=== PATIENT | male | born 1940 | race Caucasian/White ===

== ENCOUNTER 2016-08-24 11:02 | Day surgery (SDC) | payer MEDICARE, BC ==
[2016-08-23 12:04] VITALS: BMI 27.2
[~2016-08-24 11:02] MED LIST: LACTATED RINGERS 1,000 ML IV SCH
[2016-08-24] MEDS: PHENYLEPHRINE 10% OPHTH DROPS 5 ML BTL OP ONE ×3 (11:59→12:18)
[2016-08-24] MEDS: CYCLOPENTOLATE 1% OPHTH SOLN 2 ML BTL OP ONE ×3 (12:02→12:21)
[2016-08-24] MEDS: FLURBIPROFEN 0.03% OPHTH DROPS 2.5 ML BTL OP ONE ×3 (12:05→12:24)
[2016-08-24] MEDS ORDERED: LIDOCAINE 1% 20 ML VIAL (10MG/ML) FOR IV START INTRADERMA ONE (12:11)
[2016-08-24] MEDS ORDERED: ONDANSETRON 4 MG/2 ML VIAL IVP ONE (12:14)
[2016-08-24 12:16] VITALS: TEMP 97.9
[2016-08-24] MEDS ORDERED: PROPOFOL 10 MG/ML 20 ML VIAL IV ONE (12:42)
[2016-08-24] MEDS ORDERED: EPINEPHrine (PF) 0.5 ML in BALANCED SALT IRRIG SOLN COMB2 500 ML IRRIGATION ONE (12:50)
[2016-08-24] MEDS ORDERED: HYALURONATE SODIUM INTRAOCULAR 1 EACH SYRINGE (10MG/ML) INTRAOCULA ONE (12:56)
[2016-08-24] MEDS ORDERED: BALANCED SALT IRRIG SOLN COMB2 15 ML IRRIG.SOLN IRRIGATION ONE (12:56)
--- NOTE | 2016-08-24 13:09 | P.OP ---
Date of Procedure: 08/24/16 Preoperative Diagnosis: Postoperative Diagnosis: Procedure(s) Performed: PREOPERATIVE DIAGNOSIS: Cataract, left eye. POSTOPERATIVE DIAGNOSIS: Cataract, left eye. OPERATION: Phacoemulsification cataract, left eye. DESCRIPTION OF PROCEDURE: The patient was taken to the preoperative holding area. Intravenous Propofol was given so as to bring about adequate sedation. The following mixture was given for local anesthesia: 5 mL of 2% lidocaine, 5 mL of 0.75% Marcaine, and 1 mL of Wydase. Approximately 4 mL was injected in the retrobulbar space of the surgical eye. Additional 1 mL was then directed to the temporal area of the surgical eye. This was performed to allow adequate neurological block of the facial muscles. The patient was revived and then taken into the operative room. The patient was prepped and draped in the usual sterile manner for the operative eye. A lid speculum was put into position. The conjunctiva was resected back from the limbus in the 12 o'clock position. Bleeding was controlled with electrocautery. A #69 blade was then used and a half-thickness scleral incision approximately 1-mm posterior to the limbus was made on bare sclera. This was shelved in the clear cornea using a crescent knife. Next a 15-degree blade was used to make a stab incision at the 3 o' clock position at the corneolimbal interface. Keratome blade was then used and the superior wound was extended into the anterior chamber. Viscoelastic was injected into the anterior chamber and to maintain its form. Next, a cystotome was used and a continuous anterior capsulotomy was made without difficulty. Hydrodissection using a blunt cannula and BSS was performed. Phaco probe was then employed and a groove extending from 12 to 6 o'clock in the lens was created. A Ja wand was used through the stab incision so as to perform a divide and conquer technique. Next an irrigation aspiration probe was utilized and any residual cortex was removed from the eye. Again, viscoelastic was injected into the anterior chamber. An Matt posterior chamber lens implant was placed in the cartridge and injected into the anterior chamber without difficulty. The [employer] hook was utilized to spin the lens into position and this was again performed without any difficulty. The irrigation and aspiration probe was again employed and any residual viscoelastic was removed from the eye. Then BSS was injected into the limbal stab incision and the anterior chamber re-inflated. The conjunctiva was reapproximated using electrocautery. One drop of 0.25% Timoptic was placed over the corneal along with TobraDex ophthalmic ointment. Two sterile patches and a Wu eye shield were taped into position. The patient was transported to the recovery room in stable condition. Implants: Pathology: none sent Condition: stable Disposition: same day Indications for Procedure: Operative Findings: Description of Procedure:
[2016-08-24 13:29] VITALS: BP 124/60; PULSE 65; RESP 18
[2016-08-24] MEDS ORDERED: GENTAMICIN/PREDNISOL AC OPHTH OINT 3.5GM OPHTHALMIC ONE (23:00)
[2016-08-24] MEDS ORDERED: BUPIVACAINE (PF) 0.75% 5 ML, LIDOCAINE 4% (PF) 5 ML, HYALURONIDASE, HUMAN RECOMB 150 UNIT MISCELLANE ONE ×3 (23:00)
[2016-08-24] MEDS ORDERED: TIMOLOL 0.5% OPHTH SOLN (PF) 0.2 ML DROPERETTE OP ONE (23:00)
== END 2016-08-24 13:52 | disposition home or self-care (01) ==
LOC: OR 11:02
PROVIDERS: ATTEND Ophthalmology
DX: H25.012 Cortical age-related cataract, left eye (principal); I11.9 Hypertensive heart disease without heart failure; I25.10 Atherosclerotic heart disease of native coronary artery without angina pectoris; E78.5 Hyperlipidemia, unspecified; M10.9 Gout, unspecified; Z95.1 Presence of aortocoronary bypass graft; Z85.46 Personal history of malignant neoplasm of prostate; Z79.82 Long term (current) use of aspirin; Z79.899 Other long term (current) drug therapy; Z88.1 Allergy status to other antibiotic agents; Z88.8 Allergy status to other drugs, medicaments and biological substances
CPT/HCPCS: 66984; V2632; J2001; J3470; J2405; J0171; J2704

== ENCOUNTER → 2016-10-25 | Outpatient (CLI) | payer MEDICARE, BC ==
--- NOTE | 2016-10-25 15:24 | XR ---
EXAMINATION TYPE: XR chest 2V DATE OF EXAM: 10/25/2016 COMPARISON: NONE HISTORY: Shortness of breath, history of prostate cancer TECHNIQUE: Frontal and lateral views of the chest are obtained. FINDINGS: Sternal wires and mediastinal clips are seen. There is no focal air space opacity, pleural effusion, or pneumothorax seen. The cardiac silhouette size is within normal limits. The osseous s tructures are intact. IMPRESSION: No acute cardiopulmonary process.
[2016-10-25 15:31] LABS: EKG EKG PERFORMED
[2016-10-25 16:07] LABS: Anion Gap 10 mmol/L; Blood Urea Nitrogen 27 mg/dL (9-20); Calcium 9.5 mg/dL (8.4-10.2); Carbon Dioxide 23 mmol/L (22-30); Chloride 107 mmol/L (98-107); Glucose 185 mg/dL (74-99); Non-African American GFR(MDRD) 59 (>60 ml/min/1.73 sqM); Potassium 4.2 mmol/L (3.5-5.1); Sodium 140 mmol/L (137-145)
[2016-10-25 16:35] LABS: Basophils % (A) 0 %; CH 30.4; Eosinophils # (A) 0.2 k/uL (0-0.7); Eosinophils % (A) 3 %; HCT 36.4 % (39.0-53.0); Luc % (Auto) 2; Lymphocytes # (A) 0.9 k/uL (1.0-4.8); Lymphocytes % (A) 18 %; MCH 31.2 pg (25.0-35.0); MCHC 35.8 g/dL (31.0-37.0); MCV 87.2 fL (80.0-100.0); Monocytes # (A) 0.3 k/uL (0-1.0); Monocytes % (A) 6 %; Neutrophils # (A) 3.6 k/uL (1.3-7.7); Neutrophils % (A) 71 %; RBC 4.18 m/uL (4.30-5.90); RDW 13.2 % (11.5-15.5); WBC 5.1 k/uL (3.8-10.6); WBC (Perox) 4.88
== END | disposition home or self-care (01) ==
LOC: RADXRMAIN 14:47
PROVIDERS: ATTEND Radiology Radiation Oncology
DX: R06.02 Shortness of breath (principal); Z88.1 Allergy status to other antibiotic agents; Z88.8 Allergy status to other drugs, medicaments and biological substances
CPT/HCPCS: 71020; 80048; 85025; 85379; 93005

== ENCOUNTER → 2016-12-29 | Outpatient (CLI) | payer MEDICARE, BC | END | disposition home or self-care (01) | LOC: LABWHC1 09:22 | PROVIDERS: ATTEND Radiology Radiation Oncology | DX: C61 Malignant neoplasm of prostate (principal) | CPT/HCPCS: 36415; 84153 ==

== ENCOUNTER 2017-01-11 11:40 | Day surgery (SDC) | payer MEDICARE, BC ==
[2017-01-05 11:30] VITALS: BMI 26.1
[~2017-01-11 11:40] MED LIST changes: +DEXAMETHASONE SOD PHOSPHATE 10 MG/ML 1 ML VIAL IV ONE; +HYDROmorphone 0.5 MG/0.5 ML SYRINGE IVP PRN; +ONDANSETRON 4 MG/2 ML VIAL IVP ONE
[2017-01-11] MEDS: PHENYLEPHRINE 10% OPHTH DROPS 5 ML BTL OP ONE ×3 (12:06→12:23)
[2017-01-11] MEDS: CYCLOPENTOLATE 1% OPHTH SOLN 2 ML BTL OP ONE ×3 (12:09→12:26)
[2017-01-11] MEDS: KETOROLAC 0.5% OPHTH DROPS 5 ML BTL OP ONE ×3 (12:12→12:29)
[2017-01-11 12:18] VITALS: TEMP 97.5
[2017-01-11] MEDS ORDERED: LIDOCAINE 1% 20 ML VIAL (10MG/ML) FOR IV START INTRADERMA ONE (12:30)
[2017-01-11] MEDS ORDERED: PROPOFOL 10 MG/ML 20 ML VIAL IV ONE (13:23)
[2017-01-11] MEDS ORDERED: LIDOCAINE 1% INJ 10MG/ML (20 ML MDV) ONE (13:23)
[2017-01-11] MEDS ORDERED: BALANCED SALT IRRIG SOLN COMB2 15 ML IRRIG.SOLN INTRAOCULA ONE (13:36)
[2017-01-11] MEDS ORDERED: HYALURONATE SODIUM INTRAOCULAR 1 EACH SYRINGE (10MG/ML) INTRAOCULA ONE (13:37)
[2017-01-11] MEDS ORDERED: EPINEPHrine (PF) 0.5 ML in BALANCED SALT IRRIG SOLN COMB2 500 ML IRRIGATION ONE (13:38)
--- NOTE | 2017-01-11 13:47 | P.OP ---
Date of Procedure: 01/11/17 Procedure(s) Performed: PREOPERATIVE DIAGNOSIS: Cataract, right eye. POSTOPERATIVE DIAGNOSIS: Cataract, right eye. OPERATION: Phacoemulsification cataract, right eye. DESCRIPTION OF PROCEDURE: The patient was taken to the preoperative holding area. Intravenous Propofol was given so as to bring about adequate sedation. The following mixture was given for local anesthesia: 5 mL of 2% lidocaine, 5 mL of 0.75% Marcaine, and 1 mL of Wydase. Approximately 4 mL was injected in the retrobulbar space of the surgical eye. Additional 1 mL was then directed to the temporal area of the surgical eye. This was performed to allow adequate neurological block of the facial muscles. The patient was revived and then taken into the operative room. The patient was prepped and draped in the usual sterile manner for the operative eye. A lid speculum was put into position. The conjunctiva was resected back from the limbus in the 12 o'clock position. Bleeding was controlled with electrocautery. A #69 blade was then used and a half-thickness scleral incision approximately 1-mm posterior to the limbus was made on bare sclera. This was shelved in the clear cornea using a crescent knife. Next a 15-degree blade was used to make a stab incision at the 3 o' clock position at the corneolimbal interface. Keratome blade was then used and the superior wound was extended into the anterior chamber. Viscoelastic was injected into the anterior chamber and to maintain its form. Next, a cystotome was used and a continuous anterior capsulotomy was made without difficulty. Hydrodissection using a blunt cannula and BSS was performed. Phaco probe was then employed and a groove extending from 12 to 6 o'clock in the lens was created. A Ja wand was used through the stab incision so as to perform a divide and conquer technique. Next an irrigation aspiration probe was utilized and any residual cortex was removed from the eye. Again, viscoelastic was injected into the anterior chamber. An Matt posterior chamber lens implant was placed in the cartridge and injected into the anterior chamber without difficulty. The [employer] hook was utilized to spin the lens into position and this was again performed without any difficulty. The irrigation and aspiration probe was again employed and any residual viscoelastic was removed from the eye. Then BSS was injected into the limbal stab incision and the anterior chamber re-inflated. The conjunctiva was reapproximated using electrocautery. One drop of 0.25% Timoptic was placed over the corneal along with TobraDex ophthalmic ointment. Two sterile patches and a Wu eye shield were taped into position. The patient was transported to the recovery room in stable condition. Pathology: none sent Condition: stable Disposition: same day
[2017-01-11 13:56] VITALS: RESP 18
[2017-01-11 14:07] VITALS: BP 122/78; PULSE 64
[2017-01-11] MEDS ORDERED: BUPIVACAINE (PF) 0.75% 5 ML, LIDOCAINE 4% (PF) 5 ML, HYALURONIDASE, HUMAN RECOMB 150 UNIT MISCELLANE ONE ×3 (23:00)
[2017-01-11] MEDS ORDERED: GENTAMICIN/PREDNISOL AC OPHTH OINT 3.5GM OPHTHALMIC ONE (23:00)
[2017-01-11] MEDS ORDERED: TIMOLOL 0.5% OPHTH SOLN (PF) 0.2 ML DROPERETTE OP ONE (23:00)
== END 2017-01-11 14:23 | disposition home or self-care (01) ==
LOC: OR 11:40
PROVIDERS: ATTEND Ophthalmology
DX: H26.9 Unspecified cataract (principal); E78.5 Hyperlipidemia, unspecified; I25.10 Atherosclerotic heart disease of native coronary artery without angina pectoris; N40.0 Benign prostatic hyperplasia without lower urinary tract symptoms; Z85.46 Personal history of malignant neoplasm of prostate; Z79.899 Other long term (current) drug therapy; Z95.1 Presence of aortocoronary bypass graft; I25.2 Old myocardial infarction; Z79.82 Long term (current) use of aspirin; Z98.42 Cataract extraction status, left eye; Z96.1 Presence of intraocular lens
CPT/HCPCS: 66984; V2632; J2001 ×2; J3470; J0171; J2704

== ENCOUNTER → 2017-06-17 | Outpatient (CLI) | payer MEDICARE, BC | END | disposition home or self-care (01) | LOC: LABWHC1 10:52 | PROVIDERS: ATTEND Radiology Radiation Oncology | DX: C61 Malignant neoplasm of prostate (principal) | CPT/HCPCS: 36415; 84153 ==

== ENCOUNTER → 2017-10-10 | Outpatient (CLI) | payer MEDICARE, BC | END | disposition home or self-care (01) | LOC: LABWHC1 13:25 | PROVIDERS: ATTEND Radiology Radiation Oncology | DX: C61 Malignant neoplasm of prostate (principal) | CPT/HCPCS: 36415; 84153 ==

== ENCOUNTER → 2017-11-02 | Outpatient (CLI) | payer MEDICARE, BC ==
[2017-11-02 10:14] LABS: Cholesterol 132 mg/dL (<200); HDL Cholesterol 46 mg/dL (40-60); LDL Cholesterol,Calculated 68 mg/dL (0-99); Triglycerides 92 mg/dL (<150)
== END | disposition home or self-care (01) ==
LOC: LABWHC1 09:22
PROVIDERS: ATTEND Internal Medicine Cardiovascular Disease
DX: E78.2 Mixed hyperlipidemia (principal)
CPT/HCPCS: 36415; 80061

== ENCOUNTER → 2018-02-13 | Outpatient (CLI) | payer MEDICARE, BC | END | disposition home or self-care (01) | LOC: LABWHC1 13:48 | PROVIDERS: ATTEND Radiology Radiation Oncology | DX: C61 Malignant neoplasm of prostate (principal) | CPT/HCPCS: 36415; 84153 ==

== ENCOUNTER → 2018-06-16 | Outpatient (CLI) | payer MEDICARE, BC | LOC: LABWHC1 11:12 | PROVIDERS: ATTEND Radiology Radiation Oncology | DX: C61 Malignant neoplasm of prostate (principal) | CPT/HCPCS: 36415; 84153 ==

== ENCOUNTER → 2018-07-19 | Outpatient (CLI) | payer MEDICARE, BC ==
[2018-07-19 11:38] LABS: HGB 9.3 gm/dL (13.0-17.5); Hypochromasia Marked; MCH 21.7 pg (25.0-35.0); MCHC 29.2 g/dL (31.0-37.0); MCV 74.2 fL (80.0-100.0); Mean Platelet Volume 7.8; Microcytosis Slight; Platelet Count 139 k/uL (150-450); RBC 4.31 m/uL (4.30-5.90); RDW 15.4 % (11.5-15.5); WBC 4.7 k/uL (3.8-10.6)
[2018-07-19 17:37] LABS: Iron Saturation 2.82 (15.00-50.00)
== END | disposition home or self-care (01) ==
LOC: LABWHC1 10:24
PROVIDERS: ATTEND Internal Medicine Hematology & Oncology
DX: D50.9 Iron deficiency anemia, unspecified (principal)
CPT/HCPCS: 36415; 82728; 83540; 83550; 85027

== ENCOUNTER → 2018-08-18 | Outpatient (CLI) | payer MEDICARE, BC ==
--- NOTE | 2018-08-18 11:18 | CT ---
EXAMINATION TYPE: CT ChestAbdPelvis w con DATE OF EXAM: 08/18/2018 COMPARISON: Outside CT abdomen and pelvis July 15, 2016 HISTORY: Duodenal Mass, recent abnormal EGD. CT DLP: 1085 mGycm. Automated Exposure Control for Dose Reduction was Utilized. CONTRAST: CT scan of the thorax, abdomen and pelvis is performed with oral and with IV Contrast, patient inject ed with 100 mL of Isovue 300. FINDINGS: LUNGS: Some patchy atelectasis or scarring anterior right lung base is present. No suspicious nodules or masses are seen. Mild linear scarring right lower lung laterally axial image 37 is noted. Patchy atelectasis lateral left lower lobe axial image 40 is noted. No pleural effusion or pneumothorax. MEDIASTINUM: There are no greater than 1 cm hilar or mediastinal lymph nodes. No cardiomegaly or p ericardial effusion is seen. Post CABG changes with mediastinal clips and sternal wires. OTHER: No additional significant abnormality is seen. LIVER/GB: A few small dependent gallstones and gallbladder are seen. Common bile duct felt within nor mal limits coronal image 39. PANCREAS: No significant abnormality is seen. SPLEEN: No significant abnormality is seen. ADRENALS: No significant abnormality is seen. KIDNEYS: No significant abnormality is seen. BOWEL: Oral contrast reaches level of mid transverse colon. There is mild prominence of fecal materia l in the left and transverse colon. There is no suspicious small or large bowel dilatation. Stomach i s poorly distended and thus suboptimally evaluated. There is poor distention of duodenal sweep withou t obvious suspicious mass.. GENITAL ORGANS: Heterogeneous enlarged prostate gland consistent with BPH bulging on bladder base. Oc casional pelvic phleboliths. LYMPH NODES: No greater than 1cm abdominal or pelvic lymph nodes are appreciated. OSSEOUS STRUCTURES: Moderate disc space narrowing with vacuum disc phenomenon and facet arthropathy l ower lumbar spine is seen. There is nonspecific sclerotic focus left T11 level with additional sclero tic focus posterior left third rib coronal image 61. There are multiple round lucent lesions involvin g L3 and L4 vertebra with largest left upper aspect coronal image 56 may have trabeculation. Nonspeci fic finding. I favor benign etiology as the osseous lesions are not significantly changed from 2017 C T. OTHER: Moderate mixed plaque of distal abdominal aorta extends into branch vessels. IMPRESSION: Poor visualization of known duodenal mass on this study. No suspicious new mass or adeno graeme to suggest metastatic malignancy.
== END | disposition home or self-care (01) ==
LOC: RADCTMAIN 08:37
PROVIDERS: ATTEND Internal Medicine Gastroenterology
DX: K31.9 Disease of stomach and duodenum, unspecified (principal)
CPT/HCPCS: 82565; 84520; 71260; 74177; 36415; Q9967

== ENCOUNTER → 2018-12-25 | Outpatient (CLI) | payer MEDICARE, BC | END | disposition home or self-care (01) | LOC: LABWHC1 13:23 | PROVIDERS: ATTEND Radiology Radiation Oncology | DX: C61 Malignant neoplasm of prostate (principal); Z79.818 Long term (current) use of other agents affecting estrogen receptors and estrogen levels; Z92.3 Personal history of irradiation | CPT/HCPCS: 36415; 84153 ==

== ENCOUNTER → 2019-02-20 | Outpatient (CLI) | payer MEDICARE, BC ==
[2019-02-20 20:46] LABS: Folate, Serum 10.6 ng/mL; Rheumatoid Factor, Qnt <4 IU/mL (0-15)
[2019-02-20 21:40] LABS: Hemoglobin A1C 7.5 % (4.0-6.0)
[2019-02-21 10:09] LABS: Free Kappa Lt Chain Qnt, Serum 3.38 mg/dL (0.33-1.94)
== END | disposition home or self-care (01) ==
LOC: LABWHC1 13:41
PROVIDERS: ATTEND Psychiatry & Neurology Neurology
DX: C61 Malignant neoplasm of prostate (principal); G62.9 Polyneuropathy, unspecified; M50.00 Cervical disc disorder with myelopathy, unspecified cervical region
CPT/HCPCS: 36415; 82607; 82746; 83036; 83883; 84207; 86038; 86334; 86431

== ENCOUNTER → 2019-03-09 | Outpatient (CLI) | payer MEDICARE, BC ==
[2019-03-09 19:01] LABS: Ferritin 187.8 ng/mL (22.0-322.0)
[2019-03-09 19:48] LABS: % Iron Saturation 22.13 (15.00-50.00); African American GFR (CKD) 83.8 (60.0-200.0); Anion Gap 7.4 mmol/L (4.00-12.00); Calcium 8.9 mg/dL (8.7-10.3); Carbon Dioxide 25.6 mmol/L (21.6-31.8); Non-African American GFR(CKD) 72.3 (60.0-200.0); Potassium 4.3 mmol/L (3.5-5.5); Total Bilirubin 0.3 mg/dL (0.2-1.2)
== END ==
LOC: LABWHC1 12:34
PROVIDERS: ATTEND Internal Medicine Hematology & Oncology
DX: C61 Malignant neoplasm of prostate (principal); E11.9 Type 2 diabetes mellitus without complications; D64.9 Anemia, unspecified
CPT/HCPCS: 36415; 80053; 82728; 83540; 83550; 84153

== ENCOUNTER → 2019-03-20 | Outpatient (CLI) | payer MEDICARE, BC ==
[2019-03-20 12:03] LABS: Anisocytosis Moderate; HCT 42.1 % (39.0-53.0); HGB 13.5 gm/dL (13.0-17.5); Hypochromasia Slight; MCH 26.3 pg (25.0-35.0); MCV 82.2 fL (80.0-100.0); Mean Platelet Volume 8.9; Microcytosis Slight; Platelet Count 114 k/uL (150-450); RBC 5.13 m/uL (4.30-5.90); WBC 4.7 k/uL (3.8-10.6)
[2019-03-20 16:13] LABS: Ferritin 236.6 ng/mL (22.0-322.0)
[2019-03-20 16:44] LABS: Potassium 4.4 mmol/L (3.5-5.5)
== END | disposition home or self-care (01) ==
LOC: LABWHC1 11:15
PROVIDERS: ATTEND Internal Medicine Hematology & Oncology
DX: E11.9 Type 2 diabetes mellitus without complications (principal); D64.9 Anemia, unspecified
CPT/HCPCS: 36415; 82728; 82947; 83540; 84132; 85027

== ENCOUNTER → 2019-04-26 | Outpatient (CLI) | payer MEDICARE, BC ==
[2019-04-26 14:45] LABS: Anisocytosis Slight; HCT 43.5 % (39.0-53.0); MCH 27.1 pg (25.0-35.0); MCHC 32.2 g/dL (31.0-37.0); MCV 84.3 fL (80.0-100.0); Mean Platelet Volume 8.6; Microcytosis Slight; Platelet Count 108 k/uL (150-450); RBC 5.15 m/uL (4.30-5.90); RDW 18.7 % (11.5-15.5); WBC 5.3 k/uL (3.8-10.6)
[2019-04-26 16:06] LABS: Erythrocyte Sedimentation Rate 16 mm/hr (0-15)
[2019-04-26 20:06] LABS: Hemoglobin A1C 8.7 % (4.0-6.0)
[2019-04-26 20:14] LABS: African American GFR (CKD) 95.1 (60.0-200.0); Non-African American GFR(CKD) 82.1 (60.0-200.0); Total Bilirubin 0.5 mg/dL (0.2-1.2)
== END | disposition home or self-care (01) ==
LOC: LABWHC1 13:58
PROVIDERS: ATTEND Internal Medicine Hematology & Oncology
DX: C61 Malignant neoplasm of prostate (principal); I10 Essential (primary) hypertension; E11.9 Type 2 diabetes mellitus without complications; D50.9 Iron deficiency anemia, unspecified; I20.9 Angina pectoris, unspecified
CPT/HCPCS: 36415; 82247; 82565; 83036; 83615; 84075; 84153; 84450; 84460; 84520; 85027; 85652

== ENCOUNTER → 2019-04-28 | Outpatient (CLI) | payer MEDICARE, BC ==
[2019-04-28 13:52] LABS: Chol/HDL Ratio 2.44; LDL Cholesterol,Calculated 35.2 mg/dL (0.0-131.0); VLDL Calculation 16.8 mg/dL (5.00-40.00)
== END | disposition home or self-care (01) ==
LOC: LABWHC1 09:21
PROVIDERS: ATTEND Internal Medicine Hematology & Oncology
DX: I10 Essential (primary) hypertension (principal); C61 Malignant neoplasm of prostate; E11.9 Type 2 diabetes mellitus without complications; D50.9 Iron deficiency anemia, unspecified; I20.9 Angina pectoris, unspecified; E78.5 Hyperlipidemia, unspecified
CPT/HCPCS: 36415; 80061; 82947

== ENCOUNTER 2019-07-04 14:52 | Inpatient (IN) | payer MEDICARE, BC ==
[2019-07-04] MEDS ORDERED: ONDANSETRON 4 MG/2 ML VIAL IVP STA ×2 (15:18→18:01)
[2019-07-04] MEDS ORDERED: SODIUM CHLORIDE 0.9% 1,000 ML IV STA ×3 (15:18→17:41)
[2019-07-04] MEDS ORDERED: HYDROmorphone 1 MG/ML 1 ML SYRINGE IVP STA ×2 (15:18→19:08)
[2019-07-04] MEDS ORDERED: IOPAMIDOL CONTRAST (ORAL USE) VIAL PO PRN (15:18)
[2019-07-04] MEDS ORDERED: PANTOPRAZOLE 40 MG/10 ML VIAL IVP STA (15:18)
--- NOTE | 2019-07-04 15:21 | ED ---
General Adult HPI - General Source: patient, RN notes reviewed Mode of arrival: ambulatory Limitations: no limitations <Reed Dangelo - Last Filed: 07/04/19 15:37> <Venu Ray - Last Filed: 07/04/19 19:18> - General Chief complaint: Abdominal Pain Stated complaint: NVD Time Seen by Provider: 07/04/19 15:13 - History of Present Illness Initial comments: Patient is a pleasant 78-year-old male presenting to the emergency Department with abdominal discomfort as well as nausea and vomiting. Onset of symptoms was today. Patient has vomited twice and still has nausea. Patient vomits during evaluation. Patient did have 2 bowel movements that were somewhat normal. No fevers. No cough or dyspnea. 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 Procedure was done at [facility] [place]. (Reed Dangelo) - Related Data Home Medications Medication Instructions Recorded Confirmed Allopurinol [Zyloprim] 100 mg PO DAILY 08/23/16 07/04/19 Aspirin 81 mg PO DAILY 08/23/16 07/04/19 Atorvastatin [Lipitor] 80 mg PO DAILY 08/23/16 07/04/19 Finasteride [Proscar] 5 mg PO DAILY 08/23/16 07/04/19 Losartan [Cozaar] 25 mg PO BID 08/23/16 07/04/19 Tamsulosin HCl [Flomax] 0.4 mg PO BID 08/23/16 07/04/19 Acarbose [Precose] 25 mg PO TID 07/04/19 07/04/19 Calcium Carbonate [Calcium] 600 mg PO BID 07/04/19 07/04/19 Cholecalciferol [Vitamin D3] 800 unit PO BID 07/04/19 07/04/19 Lipase/Protease/Amylase [Luis Duke 24,000 - 48,000 unit PO ACHS 07/04/19 07/04/19 24,000 Units Capsule] Pyridoxine [Vitamin B-6] 50 mg PO DAILY 07/04/19 07/04/19 amLODIPine [Norvasc] 5 mg PO DAILY 07/04/19 07/04/19 metFORMIN HCL [Glucophage] 1,000 mg PO BID 07/04/19 07/04/19 Allergies Allergy/AdvReac Type Severity Reaction Status Date / Time clarithromycin [From Biaxin] Allergy Rash/Hives,red Verified 07/04/19 18:39 skin clopidogrel [From Plavix] Allergy Rash/Hives,red Verified 07/04/19 18:39 skin Review of Systems ROS Other: All systems not noted in ROS Statement are negative. Constitutional: Denies: fever Eyes: Denies: eye pain ENT: Denies: ear pain Respiratory: Denies: cough, dyspnea Cardiovascular: Denies: chest pain Endocrine: Denies: fatigue Gastrointestinal: Reports: abdominal pain, nausea, vomiting Genitourinary: Denies: dysuria Musculoskeletal: Denies: back pain Skin: Denies: rash Neurological: Denies: weakness <Reed Dangelo - Last Filed: 07/04/19 15:37> ROS Other: All systems not noted in ROS Statement are negative. <Venu Ray - Last Filed: 07/04/19 19:18> ROS Statement: Those systems with pertinent positive or pertinent negative responses have been documented in the HPI. Past Medical History Past Medical History: Cancer, Eye Disorder, Hyperlipidemia, Hypertension, O steoarthritis (OA) Additional Past Medical History / Comment(s): hx. prostate cancer-dx. 2014- recent elevation in PSA so currently having radiation here,cataracts History of Any Multi-Drug Resistant Organisms: MRSA Date of last positivie culture/infection: 2008 MDRO Source:: foot Past Surgical History: Coronary Bypass/CABG, Heart Catheterization, Orthopedic Surgery Additional Past Surgical History / Comment(s): angie shoulder arthroscopy, whipple surgery. Past Anesthesia/Blood Transfusion Reactions: Motion Sickness, Postoperative Nausea & Vomiting (PONV) Past Psychological History: No Psychological Hx Reported Past Alcohol Use History: None Reported - Past Family History Mother Family Medical History: No Reported History <Reed Dangelo - Last Filed: 07/04/19 15:37> General Exam Limitations: no limitations General appearance: alert, in no apparent distress Head exam: Present: normocephalic Eye exam: Present: normal appearance Neck exam: Present: normal inspection Respiratory exam: Present: normal lung sounds bilaterally Cardiovascular Exam: Present: regular rate, normal rhythm Expanded Peripheral pulses: 2+: Posterior Tibialis (R), Posterior Tibialis (L) GI/Abdominal exam: Present: soft, tenderness (Mild diffuse tenderness). Absent: distended Extremities exam: Present: normal inspection Neurological exam: Present: alert Psychiatric exam: Present: normal affect, normal mood Skin exam: Present: normal color <Reed Dangelo - Last Filed: 07/04/19 15:37> Course Vital Signs 07/04/19 07/04/19 07/04/19 15:04 16:08 17:39 Temperature 97.9 F Pulse Rate 59 L 65 65 Respiratory 18 18 18 Rate Blood Pressure 173/71 183/80 162/77 O2 Sat by Pulse 100 100 98 Oximetry EKG Findings - EKG Comments: EKG Findings:: Sinus rhythm at 82. ID 148. QRS 142. QTC 496. QTc 579. Right axis. Right bundle branch block. Nonspecific T waves. <Reed Dangelo - Last Filed: 07/04/19 15:37> Medical Decision Making - Lab Data Result diagrams: 07/04/19 15:47 07/04/19 15:47 - Radiology Data Radiology results: report reviewed (I did review the imaging and report evidence of left side moderate hydronephrosis secondary to a 2.5 mm left UVJ calculus there is left-sided renal edema and perinephric stranding and fluid noted which may reflect extravasated urine. Additionally the CAT scan shows postsurgical changes cannot rule out inflammatory change or mass), image reviewed <Venu Ray - Last Filed: 07/04/19 19:18> - Medical Decision Making The patient was endorsed to me by Dr. Dangelo and her shift change pending CAT scan results. I did receive the CAT scan results. I did discuss the patient's finding with his as well as him I did reexamine the patient he did have some mild left flank pain. He said pain medication continued had pain and some nausea. I did discuss the case with Dr. Navarro from [facility]. He feels the patient can be treated in [place]. I did discuss the case Dr. Garibay. Patient will be admitted for IV pain medication IV hydration. (Venu Ray) - Lab Data Lab Results 07/04/19 07/04/19 07/04/19 Range/Units 15:47 15:47 15:47 WBC 11.1 H (3.8-10.6) k/uL RBC 4.74 (4.30-5.90) m/uL Hgb 14.6 (13.0-17.5) gm/dL Hct 42.2 (39.0-53.0) % MCV 89.0 (80.0-100.0) fL MCH 30.8 (25.0-35.0) pg MCHC 34.5 (31.0-37.0) g/dL RDW 13.9 (11.5-15.5) % Plt Count 147 L (150-450) k/uL Neutrophils % 87 % Lymphocytes % 8 % Monocytes % 4 % Eosinophils % 0 % Basophils % 0 % Neutrophils # 9.6 H (1.3-7.7) k/uL Lymphocytes # 0.9 L (1.0-4.8) k/uL Monocytes # 0.4 (0-1.0) k/uL Eosinophils # 0.1 (0-0.7) k/uL Basophils # 0.0 (0-0.2) k/uL PT 11.7 (9.0-12.0) sec INR 1.2 H (<1.2) APTT 23.2 (22.0-30.0) sec Sodium 141 (137-145) mmol/L Potassium 4.0 (3.5-5.1) mmol/L Chloride 105 (98-107) mmol/L Carbon Dioxide 21 L (22-30) mmol/L Anion Gap 15 mmol/L BUN 16 (9-20) mg/dL Creatinine 0.94 (0.66-1.25) mg/dL Est GFR (CKD-EPI)AfAm >90 (>60 ml/min/1.73 sqM) Est GFR (CKD-EPI)NonAf 78 (>60 ml/min/1.73 sqM) Glucose 191 H (74-99) mg/dL Lactic Ac Sepsis Rflx Plasma Lactic Acid Serjio (0.7-2.0) mmol/L Calcium 10.0 (8.4-10.2) mg/dL Total Bilirubin 1.0 (0.2-1.3) mg/dL AST 75 H (17-59) U/L ALT 122 H (4-49) U/L Alkaline Phosphatase 162 H (38-126) U/L Total Protein 7.1 (6.3-8.2) g/dL Albumin 4.3 (3.5-5.0) g/dL Amylase 54 (30-110) U/L Lipase 213 (23-300) U/L 07/04/19 07/04/19 Range/Units 15:47 16:12 WBC (3.8-10.6) k/uL RBC (4.30-5.90) m/uL Hgb (13.0-17.5) gm/dL Hct (39.0-53.0) % MCV (80.0-100.0) fL MCH (25.0-35.0) pg MCHC (31.0-37.0) g/dL RDW (11.5-15.5) % Plt Count (150-450) k/uL Neutrophils % % Lymphocytes % % Monocytes % % Eosinophils % % Basophils % % Neutrophils # (1.3-7.7) k/uL Lymphocytes # (1.0-4.8) k/uL Monocytes # (0-1.0) k/uL Eosinophils # (0-0.7) k/uL Basophils # (0-0.2) k/uL PT (9.0-12.0) sec INR (<1.2) APTT (22.0-30.0) sec Sodium (137-145) mmol/L Potassium (3.5-5.1) mmol/L Chloride (98-107) mmol/L Carbon Dioxide (22-30) mmol/L Anion Gap mmol/L BUN (9-20) mg/dL Creatinine (0.66-1.25) mg/dL Est GFR (CKD-EPI)AfAm (>60 ml/min/1.73 sqM) Est GFR (CKD-EPI)NonAf (>60 ml/min/1.73 sqM) Glucose (74-99) mg/dL Lactic Ac Sepsis Rflx Y Plasma Lactic Acid Serjio 5.7 H* (0.7-2.0) mmol/L Calcium (8.4-10.2) mg/dL Total Bilirubin (0.2-1.3) mg/dL AST (17-59) U/L ALT (4-49) U/L Alkaline Phosphatase (38-126) U/L Total Protein (6.3-8.2) g/dL Albumin (3.5-5.0) g/dL Amylase (30-110) U/L Lipase (23-300) U/L Disposition <Reed Dangelo - Last Filed: 07/04/19 15:37> <Venu Ray - Last Filed: 07/04/19 19:18> Clinical Impression: Kidney stone on left side, Intractable pain, Hydronephrosis, History of pros andrade cancer Disposition: ADMITTED IP TO THIS HOSP Condition: Fair Referrals: Rah Tsai MD [Primary Care Provider] - 1-2 days
[2019-07-04 16:00] LABS: Basophils % (A) 0 %; Eosinophils # (A) 0.1 k/uL (0-0.7); Eosinophils % (A) 0 %; HCT 42.2 % (39.0-53.0); HGB 14.6 gm/dL (13.0-17.5); Lymphocytes # (A) 0.9 k/uL (1.0-4.8); Lymphocytes % (A) 8 %; MCH 30.8 pg (25.0-35.0); MCHC 34.5 g/dL (31.0-37.0); Mean Platelet Volume 8.5; Monocytes # (A) 0.4 k/uL (0-1.0); Monocytes % (A) 4 %; Neutrophils # (A) 9.6 k/uL (1.3-7.7); Neutrophils % (A) 87 %; Platelet Count 147 k/uL (150-450); RBC 4.74 m/uL (4.30-5.90); RDW 13.9 % (11.5-15.5); WBC 11.1 k/uL (3.8-10.6)
[2019-07-04 16:09] LABS: AST 75 U/L (17-59); African American GFR (CKD) >90 (>60 ml/min/1.73 sqM); Albumin 4.3 g/dL (3.5-5.0); Alkaline Phosphatase 162 U/L (38-126); Amylase 54 U/L (30-110); Anion Gap 15 mmol/L; Blood Urea Nitrogen 16 mg/dL (9-20); Carbon Dioxide 21 mmol/L (22-30); Chloride 105 mmol/L (98-107); Glucose 191 mg/dL (74-99); Non-African American GFR(CKD) 78 (>60 ml/min/1.73 sqM); Sodium 141 mmol/L (137-145); Total Protein 7.1 g/dL (6.3-8.2)
[2019-07-04 16:16] LABS: ALT 122 U/L (4-49); INR 1.2 (<1.2); Partial Thromboplastin Time 23.2 sec (22.0-30.0); Prothrombin Time 11.7 sec (9.0-12.0)
--- NOTE | 2019-07-04 17:07 | CT ---
EXAMINATION TYPE: CT abdomen pelvis w con DATE OF EXAM: 07/04/2019 COMPARISON: 08/18/2018 HISTORY: LLQ pain with N/V/D CT DLP: 890.7 mGycm CONTRAST: CT scan of the abdomen and pelvis is performed without Oral Contrast and with IV Contrast, patient in jected with 100 mL of Isovue 300. FINDINGS: LUNG BASES-: No visible nodule. No infiltrate. LIVER/GB: No space occupying hepatic lesion. Biliary tree is of normal caliber. Is evidence of pneumo bilia. The gallbladder surgically absent. PANCREAS: There appears to have been prior resection of the pancreatic head and neck. Correlate clini chelo. There is prominence of the pancreatic duct. SPLEEN: No splenic enlargement. No lesion seen. ADRENALS: No nodule. No thickening. KIDNEYS/BLADDER: Moderate left-sided hydronephrosis secondary to a 2.5 mm left UVJ calculus. There is left sided renal edema and perinephric stranding and fluid noted which may reflect extravasated urin e. BOWEL: Wall thickening distal stomach with postoperative changes noted. I cannot exclude underlying i nflammatory change or mass. Contrast is seen within the proximal small bowel and therefore there is n o definite evidence for obstruction. Normal bowel caliber. No inflammation. GENITAL ORGANS: Prostate gland enlargement identified. LYMPH NODES: No greater than 1cm abdominal or pelvic lymph nodes are appreciated. AORTA: No significant abnormality. OSSEOUS STRUCTURES: No significant abnormality is seen. OTHER: No significant additional abnormality is seen. IMPRESSION: 1. Moderate left-sided hydronephrosis secondary to a 2.5 mm left UVJ calculus. There is left sided re nal edema and perinephric stranding and fluid noted which may reflect extravasated urine. 2.Wall thickening distal stomach with postoperative changes noted. I cannot exclude underlying inflam matory change or mass.
[2019-07-04] MEDS ORDERED: KETOROLAC 30 MG/ML 1 ML VIAL IVP STA (18:00)
[2019-07-04] MEDS ORDERED: HYDROmorphone 0.5 MG/0.5 ML SYRINGE IVP PRN (19:19)
[2019-07-04] MEDS ORDERED: ACETAMINOPHEN TAB 325 MG TAB PO PRN (19:19)
[2019-07-04] MEDS ORDERED: ONDANSETRON 4 MG/2 ML VIAL IVP PRN (19:19)
[2019-07-04] MEDS ORDERED: NALOXONE 0.4 MG/ML 1 ML VIAL IV PRN (19:19)
[2019-07-04] MEDS: SODIUM CHLORIDE 0.9% 1,000 ML IV SCH (19:48)
[2019-07-04] MEDS ORDERED: METOCLOPRAMIDE 5 MG/ML 2 ML VIAL IVP STA (20:15)
[2019-07-04 21:00] VITALS: RESP 16
[2019-07-04] MEDS ORDERED: metFORMIN 500 MG TAB PO SCH (21:00)
[2019-07-04] MEDS ORDERED: CALCIUM CARBONATE 500 MG CHEWABLE PO SCH (21:00)
[2019-07-04] MEDS ORDERED: LOSARTAN 25 MG TAB PO SCH (21:00)
[2019-07-04] MEDS ORDERED: CHOLECALCIFEROL 400 UNIT TAB PO SCH (21:00)
[2019-07-04] MEDS ORDERED: TAMSULOSIN 0.4 MG CAP.ER.24H PO SCH (21:00)
[2019-07-04] MEDS ORDERED: ACARBOSE 25 MG TAB PO SCH (22:00)
[2019-07-04 22:12] LABS: Glucose,Whole Blood 163 mg/dL (75-99)
[2019-07-04 23:14] LABS: Appearance,Urine Clear (Clear); Bilirubin,Urine Negative (Negative); Blood,Urine Trace (Negative); Color,Urine Light Yellow; Glucose,Urine (UA) 2+ (Negative); Ketones,Urine 1+ (Negative); Leukocyte Esterase,Urine Negative (Negative); Mucus,Urine Rare /hpf; Nitrite,Urine Negative (Negative); Protein,Urine 1+ (Negative); RBC,Urine 4 /hpf (0-5); Specific Gravity,Urine 1.013 (1.001-1.035); Urobilinogen,Urine <2.0 mg/dL (<2.0); WBC,Urine 1 /hpf (0-5)
[2019-07-05] MEDS: SODIUM CHLORIDE 0.9% 1,000 ML IV SCH (01:54)
[2019-07-05 04:55] VITALS: BP 138/68; PULSE 62; TEMP 97.7
[2019-07-05] MEDS ORDERED: PYRIDOXINE 50 MG TAB PO SCH (09:00)
[2019-07-05] MEDS ORDERED: ATORVASTATIN 80 MG TAB PO SCH (09:00)
[2019-07-05] MEDS ORDERED: ASPIRIN 81 MG PO SCH (09:00)
[2019-07-05] MEDS ORDERED: ALLOPURINOL 100 MG TAB PO SCH (09:00)
[2019-07-05] MEDS ORDERED: amLODIPine 5 MG TAB PO SCH (09:00)
[2019-07-05] MEDS ORDERED: FINASTERIDE 5 MG TAB PO SCH (09:00)
--- NOTE | 2019-07-05 09:16 | P.GSHP ---
History of Present Illness H&P Date: 07/05/19 Chief Complaint: Left flank pain secondary to distal left ureteral calculus The patient is a 78-year-old male who developed left lower quadrant pain associated with nausea and vomiting on 07/04/2019. He also experienced some fecal and urinary urgency. His pain continued and he presented to the emergency room for further evaluation. He had previously undergone a Whipple procedure in 10/2019 and for that reason a computed tomography scan of the abdomen and pelvis was obtained. This showed a 1.3 x 2.6 mm calculus in the distal left ureter with mild to moderate left hydroureteronephrosis and some perinephric stranding. The patient remained uncomfortable and it was elected to admit him overnight. He says that since he left the emergency room he no longer had any pain and his previous frequency and urgency have resolved. The patient has no previous history of urolithiasis and there is no family history of kidney stones. He denies any gross hematuria or history of urinary tract infection. - Constitutional Constitutional: Denies chills, Denies fever - Cardiovascular Cardiovascular: Denies chest pain, Denies shortness of breath - Respiratory Respiratory: Denies cough, Denies wheezing - Gastrointestinal Gastrointestinal: Reports abdominal pain, Reports nausea, Reports vomiting, Denies diarrhea, Denies heartburn - Genitourinary (Male) Genitourinary: Denies dysuria, Denies hematuria Past Medical History Past Medical History: Cancer, Eye Disorder, Hypertension, Osteoarthritis (OA) Additional Past Medical History / Comment(s): hx. prostate cancer-dx. 2013- recent elevation in PSA so currently had radiation(last treatment was 2017) here,cataracts, low cholestral History of Any Multi-Drug Resistant Organisms: MRSA Date of last positivie culture/infection: 2008 MDRO Source:: foot Past Surgical History: Coronary Bypass/CABG, Heart Catheterization, Orthopedic Surgery Additional Past Surgical History / Comment(s): angie shoulder arthroscopy, whipple surgery-benign tumor-had partial pancreatectomy, cataracts Past Anesthesia/Blood Transfusion Reactions: Motion Sickness, Postoperative Nausea & Vomiting (PONV) Past Psychological History: No Psychological Hx Reported Smoking Status: Never smoker Past Alcohol Use History: None Reported Past Drug Use History: None Reported - Past Family History Mother Family Medical History: No Reported History Additional Family Medical History / Comment(s): , natural causes Medications and Allergies Home Medications Medication Instructions Recorded Confirmed Type Allopurinol [Zyloprim] 100 mg PO DAILY 08/23/16 07/04/19 History Aspirin 81 mg PO DAILY 08/23/16 07/04/19 History Atorvastatin [Lipitor] 80 mg PO DAILY 08/23/16 07/04/19 History Finasteride [Proscar] 5 mg PO DAILY 08/23/16 07/04/19 History Losartan [Cozaar] 25 mg PO BID 08/23/16 07/04/19 History Tamsulosin HCl [Flomax] 0.4 mg PO BID 08/23/16 07/04/19 History Acarbose [Precose] 25 mg PO TID 07/04/19 07/04/19 History Calcium Carbonate [Calcium] 600 mg PO BID 07/04/19 07/04/19 History Cholecalciferol [Vitamin D3] 800 unit PO BID 07/04/19 07/04/19 History Lipase/Protease/Amylase [Creon Dr 24,000 - 48,000 unit PO ACHS 07/04/19 07/04/19 History 24,000 Units Capsule] Pyridoxine [Vitamin B-6] 50 mg PO DAILY 07/04/19 07/04/19 History amLODIPine [Norvasc] 5 mg PO DAILY 07/04/19 07/04/19 History metFORMIN HCL [Glucophage] 1,000 mg PO BID 07/04/19 07/04/19 History Allergies Allergy/AdvReac Type Severity Reaction Status Date / Time clarithromycin [From Biaxin] Allergy Rash/Hives,red Verified 07/04/19 18:39 skin clopidogrel [From Plavix] Allergy Rash/Hives,red Verified 07/04/19 18:39 skin Surgical - Exam Vital Signs Temp Pulse Resp BP Pulse Ox 97.9 F 59 L 18 173/71 100 07/04/19 15:04 07/04/19 15:04 07/04/19 15:04 07/04/19 15:04 07/04/19 15:04 - General well developed, well nourished, no distress - ENT no hearing loss - Neck no masses, no lymphadectomy - Respiratory normal respiratory effort - Abdomen Abdomen: soft, non tender, no organomegaly Hernia: none - Genitourinary normal penis with no external lesions, testicles non-tender Results - Labs 07/04/19 15:47 07/04/19 15:47 Abnormal Lab Results - Last 24 Hours (Table) 07/04/19 07/04/19 07/04/19 Range/Units 15:47 15:47 15:47 WBC 11.1 H (3.8-10.6) k/uL Plt Count 147 L (150-450) k/uL Neutrophils # 9.6 H (1.3-7.7) k/uL Lymphocytes # 0.9 L (1.0-4.8) k/uL INR 1.2 H (<1.2) Carbon Dioxide 21 L (22-30) mmol/L Glucose 191 H (74-99) mg/dL POC Glucose (mg/dL) (75-99) mg/dL Plasma Lactic Acid Sejrio (0.7-2.0) mmol/L AST 75 H (17-59) U/L ALT 122 H (4-49) U/L Alkaline Phosphatase 162 H (38-126) U/L Urine Protein (Negative) Urine Glucose (UA) (Negative) Urine Ketones (Negative) Urine Blood (Negative) Urine Mucus (None) /hpf 07/04/19 07/04/19 07/04/19 Range/Units 15:47 16:01 22:10 WBC (3.8-10.6) k/uL Plt Count (150-450) k/uL Neutrophils # (1.3-7.7) k/uL Lymphocytes # (1.0-4.8) k/uL INR (<1.2) Carbon Dioxide (22-30) mmol/L Glucose (74-99) mg/dL POC Glucose (mg/dL) 163 H (75-99) mg/dL Plasma Lactic Acid Serjio 5.7 H* (0.7-2.0) mmol/L AST (17-59) U/L ALT (4-49) U/L Alkaline Phosphatase (38-126) U/L Urine Protein 1+ H (Negative) Urine Glucose (UA) 2+ H (Negative) Urine Ketones 1+ H (Negative) Urine Blood Trace H (Negative) Urine Mucus Rare H (None) /hpf Diabetes panel 07/04/19 Range/Units 15:47 Sodium 141 (137-145) mmol/L Potassium 4.0 (3.5-5.1) mmol/L Chloride 105 (98-107) mmol/L Carbon Dioxide 21 L (22-30) mmol/L BUN 16 (9-20) mg/dL Creatinine 0.94 (0.66-1.25) mg/dL Glucose 191 H (74-99) mg/dL Calcium 10.0 (8.4-10.2) mg/dL AST 75 H (17-59) U/L ALT 122 H (4-49) U/L Alkaline Phosphatase 162 H (38-126) U/L Total Protein 7.1 (6.3-8.2) g/dL Albumin 4.3 (3.5-5.0) g/dL Calcium panel 07/04/19 Range/Units 15:47 Calcium 10.0 (8.4-10.2) mg/dL Albumin 4.3 (3.5-5.0) g/dL Pituitary panel 07/04/19 Range/Units 15:47 Sodium 141 (137-145) mmol/L Potassium 4.0 (3.5-5.1) mmol/L Chloride 105 (98-107) mmol/L Carbon Dioxide 21 L (22-30) mmol/L BUN 16 (9-20) mg/dL Creatinine 0.94 (0.66-1.25) mg/dL Glucose 191 H (74-99) mg/dL Calcium 10.0 (8.4-10.2) mg/dL Adrenal panel 07/04/19 Range/Units 15:47 Sodium 141 (137-145) mmol/L Potassium 4.0 (3.5-5.1) mmol/L Chloride 105 (98-107) mmol/L Carbon Dioxide 21 L (22-30) mmol/L BUN 16 (9-20) mg/dL Creatinine 0.94 (0.66-1.25) mg/dL Glucose 191 H (74-99) mg/dL Calcium 10.0 (8.4-10.2) mg/dL Total Bilirubin 1.0 (0.2-1.3) mg/dL AST 75 H (17-59) U/L ALT 122 H (4-49) U/L Alkaline Phosphatase 162 H (38-126) U/L Total Protein 7.1 (6.3-8.2) g/dL Albumin 4.3 (3.5-5.0) g/dL Assessment and Plan (1) Calculus of distal left ureter Narrative/Plan: The patient's left lower quadrant pain, nausea, vomiting and urinary urgency were most likely related to passage of a left ureteral calculus. The patient says his pain and urgency resolved yesterday evening and it is presumed that his small distal ureteral calculus has passed into his bladder. In view of this no further evaluation is necessary at this time. No other renal calculi were noted on the computed tomography scan. The patient was instructed to maintain a urine output of at least 2 L per day to reduce the likelihood of further stone formation. Status: Acute Code(s): N20.1 - CALCULUS OF URETER SNOMED Code(s): 815801489
--- NOTE | 2019-07-05 09:27 | P.DS ---
Providers Date of admission: 07/04/19 19:20 Expected date of discharge: 07/05/19 Attending physician: Michael Garibay Primary care physician: Rah Tsai - Discharge Diagnosis(es) (1) Calculus of distal left ureter Status: Acute Hospital Course: The patient was admitted for pain control due to left hydronephrosis related to a 1.3 x 2.6 mm distal left ureteral calculus. He had no pain once he left the emergency room and his previous frequency and urgency resolved. It is presumed that he passed the calculus into his bladder. The patient was discharged and will return to see me as needed. Patient Condition at Discharge: Good Plan - Discharge Summary Discharge Rx Participant: No New Discharge Prescriptions: No Action Aspirin 81 mg PO DAILY Losartan [Cozaar] 25 mg PO BID Finasteride [Proscar] 5 mg PO DAILY Atorvastatin [Lipitor] 80 mg PO DAILY Allopurinol [Zyloprim] 100 mg PO DAILY Tamsulosin HCl [Flomax] 0.4 mg PO BID Pyridoxine [Vitamin B-6] 50 mg PO DAILY Cholecalciferol [Vitamin D3] 800 unit PO BID metFORMIN HCL [Glucophage] 1,000 mg PO BID amLODIPine [Norvasc] 5 mg PO DAILY Calcium Carbonate [Calcium] 600 mg PO BID Lipase/Protease/Amylase [Luis Dr 24,000 Units Capsule] 24,000 - 48,000 unit PO ACHS Acarbose [Precose] 25 mg PO TID Discharge Medication List Allopurinol [Zyloprim] 100 mg PO DAILY 08/23/16 [History] Aspirin 81 mg PO DAILY 08/23/16 [History] Atorvastatin [Lipitor] 80 mg PO DAILY 08/23/16 [History] Finasteride [Proscar] 5 mg PO DAILY 08/23/16 [History] Losartan [Cozaar] 25 mg PO BID 08/23/16 [History] Tamsulosin HCl [Flomax] 0.4 mg PO BID 08/23/16 [History] Acarbose [Precose] 25 mg PO TID 07/04/19 [History] Calcium Carbonate [Calcium] 600 mg PO BID 07/04/19 [History] Cholecalciferol [Vitamin D3] 800 unit PO BID 07/04/19 [History] Lipase/Protease/Amylase [Luis Dr 24,000 Units Capsule] 24,000 - 48,000 unit PO ACHS 07/04/19 [History] Pyridoxine [Vitamin B-6] 50 mg PO DAILY 07/04/19 [History] amLODIPine [Norvasc] 5 mg PO DAILY 07/04/19 [History] metFORMIN HCL [Glucophage] 1,000 mg PO BID 07/04/19 [History] Follow up Appointment(s)/Referral(s): Rah Tsai MD [Primary Care Provider] - 1-2 days Michael Garibay MD [STAFF PHYSICIAN] - As Needed Patient Instructions/Handouts: Kidney Stones (DC), Hydronephrosis (DC) Activity/Diet/Wound Care/Special Instructions: diet as tolerated Activity as tolerated Discharge Disposition: HOME SELF-CARE
== END 2019-07-05 08:40 | disposition home or self-care (01) | DRG 694 ==
LOC: EC 14:52 → 5NMEDONC 19:20
PROVIDERS: ADMIT Urology; ATTEND Urology
DX: N13.2 Hydronephrosis with renal and ureteral calculous obstruction (principal); E78.5 Hyperlipidemia, unspecified; I10 Essential (primary) hypertension; Z79.82 Long term (current) use of aspirin; Z79.84 Long term (current) use of oral hypoglycemic drugs; Z79.899 Other long term (current) drug therapy; Z85.46 Personal history of malignant neoplasm of prostate; Z90.411 Acquired partial absence of pancreas; Z95.1 Presence of aortocoronary bypass graft; Z92.3 Personal history of irradiation; Z86.14 Personal history of Methicillin resistant Staphylococcus aureus infection; Z98.49 Cataract extraction status, unspecified eye; Z88.1 Allergy status to other antibiotic agents; Z88.8 Allergy status to other drugs, medicaments and biological substances; I25.10 Atherosclerotic heart disease of native coronary artery without angina pectoris
CPT/HCPCS: 36415; 74177; 80053; 81001; 82150; 83605; 83690; 85025; 85610; 85730; 93005; 96361; 96374; 96375; 96376; 99285

== ENCOUNTER → 2019-10-16 | Outpatient (CLI) | payer MEDICARE, BC | END | disposition home or self-care (01) | LOC: LABWHC1 13:46 | PROVIDERS: ATTEND Radiology Radiation Oncology | DX: C61 Malignant neoplasm of prostate (principal); Z79.818 Long term (current) use of other agents affecting estrogen receptors and estrogen levels; Z92.3 Personal history of irradiation | CPT/HCPCS: 36415; 84153 ==

== ENCOUNTER → 2020-04-15 | Outpatient (CLI) | payer MEDICARE ==
[2020-04-15 10:49] LABS: HCT 42.9 % (39.0-53.0); HGB 14.6 gm/dL (13.0-17.5); MCH 30.8 pg (25.0-35.0); MCHC 33.9 g/dL (31.0-37.0); Platelet Count 125 k/uL (150-450); RBC 4.72 m/uL (4.30-5.90); RDW 12.5 % (11.5-15.5); WBC 7.9 k/uL (3.8-10.6)
[2020-04-15 16:53] LABS: ALT 84 U/L (10-49); AST 52 U/L (14-35); Alkaline Phosphatase 112 U/L (41-126); Amylase 96 U/L (23-121); Cholesterol 113 mg/dL (0-200); GGT 82 U/L (0-73); Glucose 116 mg/dL (70-110); Lipase 67 U/L (14-60)
== END | disposition home or self-care (01) ==
LOC: LABWHC1 09:14
PROVIDERS: ATTEND Internal Medicine Hematology & Oncology
DX: C61 Malignant neoplasm of prostate (principal); Z95.1 Presence of aortocoronary bypass graft; K85.90 Acute pancreatitis without necrosis or infection, unspecified; I70.90 Unspecified atherosclerosis
CPT/HCPCS: 36415; 82150; 82465; 82947; 82977; 83690; 84075; 84450; 84460; 85027

== ENCOUNTER → 2020-07-11 | Outpatient (CLI) | payer MEDICARE ==
[2020-07-11 20:54] LABS: HCT 42.1 % (39.6-50.0); MCH 30.6 pg (27.0-32.0); MCHC 33.3 g/dL (32.0-37.0); MCV 91.9 fL (80.0-97.0); Mean Platelet Volume 11.6 fL (9.5-12.2); Platelet Count 134 X 10*3/uL (140-440); RBC 4.58 X 10*6/uL (4.40-5.60); RDW 12.4 % (11.5-14.5); WBC 6.22 X 10*3/uL (4.50-10.00)
[2020-07-11 23:27] LABS: ALT 103 U/L (10-49); AST 78 U/L (14-35); African American GFR (CKD) 94.5 (60.0-200.0); Albumin/Globulin Ratio 2.05 (1.60-3.17); Alkaline Phosphatase 110 U/L (41-126); BUN/Creat Ratio 12.22 Ratio (12.00-20.00); Calcium 9.4 mg/dL (8.7-10.3); Carbon Dioxide 28.4 mmol/L (21.6-31.8); Chloride 106 mmol/L (96-109); Glucose 182 mg/dL (70-110); Non-African American GFR(CKD) 81.5 (60.0-200.0); Potassium 4.2 mmol/L (3.5-5.5); Prostate Specific Antigen <0.1 ng/mL (0.0-6.5); Sodium 142 mmol/L (135-145); Total Bilirubin 0.8 mg/dL (0.3-1.2); Total Protein 6.1 g/dL (6.2-8.2)
[2020-07-11 23:46] LABS: Hemoglobin A1C 8.6 % (4.0-6.0)
== END | disposition home or self-care (01) ==
LOC: LABWHC1 10:55
PROVIDERS: ATTEND Internal Medicine Hematology & Oncology
DX: C61 Malignant neoplasm of prostate (principal); E11.9 Type 2 diabetes mellitus without complications; I10 Essential (primary) hypertension
CPT/HCPCS: 36415; 80053; 83036; 84153; 84550; 85027

== ENCOUNTER → 2020-12-23 | Outpatient (CLI) | payer MEDICARE ==
[2020-12-23 19:18] LABS: HCT 40.5 % (39.6-50.0); HGB 13.7 g/dL (13.0-17.0); MCH 30.9 pg (27.0-32.0); MCHC 33.8 g/dL (32.0-37.0); MCV 91.2 fL (80.0-97.0); Mean Platelet Volume 11.5 fL (9.5-12.2); Platelet Count 130 X 10*3/uL (140-440); RBC 4.44 X 10*6/uL (4.40-5.60); RDW 12.2 % (11.5-14.5); WBC 7.07 X 10*3/uL (4.50-10.00)
[2020-12-24 15:46] LABS: African American GFR (CKD) 94.5 (60.0-200.0); Albumin 3.7 g/dL (3.80-4.90); Albumin/Globulin Ratio 1.95 (1.60-3.17); Anion Gap 10.7 mmol/L (4.00-12.00); BUN/Creat Ratio 18.89 Ratio (12.00-20.00); Calcium 8.8 mg/dL (8.7-10.3); Carbon Dioxide 22.3 mmol/L (21.6-31.8); Globulin 1.9 g/dL (1.6-3.3); Non-African American GFR(CKD) 81.5 (60.0-200.0); Potassium 4.1 mmol/L (3.5-5.5); Total Bilirubin 0.6 mg/dL (0.3-1.2); Total Protein 5.6 g/dL (6.2-8.2)
== END | disposition home or self-care (01) ==
LOC: LABWHC1 13:23
PROVIDERS: ATTEND Internal Medicine Hematology & Oncology
DX: E11.9 Type 2 diabetes mellitus without complications (principal)
CPT/HCPCS: 36415; 80053; 82977; 85027

== ENCOUNTER → 2021-01-30 | Outpatient (CLI) | payer MEDICARE ==
[2021-01-30 16:20] LABS: HCT 37.5 % (39.6-50.0); HGB 12.1 g/dL (13.0-17.0); MCH 29.8 pg (27.0-32.0); MCHC 32.3 g/dL (32.0-37.0); MCV 92.4 fL (80.0-97.0); Mean Platelet Volume 11.2 fL (9.5-12.2); Platelet Count 149 X 10*3/uL (140-440); RBC 4.06 X 10*6/uL (4.40-5.60); RDW 12.9 % (11.5-14.5); WBC 8.78 X 10*3/uL (4.50-10.00)
[2021-01-30 19:52] LABS: African American GFR (CKD) 93.8 (60.0-200.0); Albumin/Globulin Ratio 1.9 (1.60-3.17); Anion Gap 13.8 mmol/L (4.00-12.00); BUN/Creat Ratio 32.78 Ratio (12.00-20.00); Blood Urea Nitrogen 29.5 mg/dL (9.0-27.0); Calcium 9.1 mg/dL (8.7-10.3); Carbon Dioxide 18.2 mmol/L (21.6-31.8); Globulin 2.1 g/dL (1.6-3.3); Non-African American GFR(CKD) 80.9 (60.0-200.0); Potassium 4.1 mmol/L (3.5-5.5); Total Bilirubin 0.9 mg/dL (0.30-1.20); Total Protein 6.1 g/dL (6.2-8.2)
== END | disposition home or self-care (01) ==
LOC: LABWHC1 09:55
PROVIDERS: ATTEND Internal Medicine Hematology & Oncology
DX: E11.9 Type 2 diabetes mellitus without complications (principal)
CPT/HCPCS: 36415; 80053; 85027

== ENCOUNTER → 2021-04-06 | Outpatient (CLI) | payer MEDICARE ==
[~2021-04-06] MED LIST changes: +BAMLANIVIMAB (EUA) 700 MG, ETESEVIMAB (EUA) 1,400 MG in SODIUM CHLORIDE 0.9% 100 ML IVPB ONE; -DEXAMETHASONE SOD PHOSPHATE 10 MG/ML 1 ML VIAL IV ONE; -HYDROmorphone 0.5 MG/0.5 ML SYRINGE IVP PRN; -LACTATED RINGERS 1,000 ML IV SCH; -ONDANSETRON 4 MG/2 ML VIAL IVP ONE; +SODIUM CHLORIDE 0.9% 50 ML IVPB ONE; +SODIUM CHLORIDE 0.9% 500 ML 500 ML in EMPTY BAG 1 BAG IV PRN
[2021-04-06 13:34] VITALS: TEMP 96.9
[2021-04-06 14:00] VITALS: RESP 16
[2021-04-06 15:02] VITALS: BP 161/90; PULSE 51
== END ==
LOC: PROCWHC3 13:14
PROVIDERS: ATTEND Internal Medicine
DX: U07.1 COVID-19 (principal); E11.9 Type 2 diabetes mellitus without complications; Z88.1 Allergy status to other antibiotic agents; Z88.8 Allergy status to other drugs, medicaments and biological substances
CPT/HCPCS: 96360; J3490; M0245

== ENCOUNTER → 2021-05-04 | Outpatient (CLI) | payer MEDICARE ==
--- NOTE | 2021-05-05 07:41 | CT ---
EXAMINATION TYPE: CT abdomen pelvis wo con DATE OF EXAM: 05/04/2021 COMPARISON: 07/04/2019 HISTORY: hematuria CT DLP: 416.1 mGycm Examination of the solid and hollow viscera is limited given the lack of contrast. FINDINGS: LUNG BASES: No evidence for nodule. No evidence for infiltrate. LIVER/GB: There is persistent pneumobilia. The gallbladder is unremarkable. No space-occupying hepati c lesion. PANCREAS: No pancreatic mass identified. No inflammatory process seen. SPLEEN: No evidence for splenomegaly. No intrasplenic lesions seen. ADRENALS: No adrenal nodules identified. No evidence for thickening. KIDNEYS: No evidence for renal mass. No nephrolithiasis. No hydronephrosis. BOWEL: Appendix has a normal appearance. No evidence of bowel obstruction. No inflammatory process. Lymph nodes: No evidence for adenopathy greater than 1 cm. Abdominal aorta: Atheromatous changes seen. No evidence for aneurysm. Genital organs: Enlarged prostate gland with internal calcifications. Other: No significant abnormality. IMPRESSION: 1. No significant abnormality to account for the patient's symptoms of hematuria. Lack of contrast do es limit evaluation. 2. Persistent pneumobilia. Postoperative changes stomach.
== END | disposition home or self-care (01) ==
LOC: RADCTMAIN 18:10
PROVIDERS: ATTEND Urology
DX: R31.9 Hematuria, unspecified (principal)
CPT/HCPCS: 74176

== ENCOUNTER → 2021-09-25 | Outpatient (CLI) | payer MEDICARE ==
[2021-09-25 14:28] LABS: HCT 38.2 % (39.6-50.0); MCH 29.2 pg (27.0-32.0); MCHC 31.4 g/dL (32.0-37.0); MCV 92.9 fL (80.0-97.0); NRBC Per 100 WBC 0 /100 WBCS (0.0-0.0); Platelet Count 161 X 10*3/uL (140-440); RBC 4.11 X 10*6/uL (4.40-5.60); RDW 12.3 % (11.5-14.5); WBC 5.23 X 10*3/uL (4.50-10.00)
[2021-09-25 14:51] LABS: African American GFR (CKD) 82.6 (60.0-200.0); Albumin 3.9 g/dL (3.8-4.9); Albumin/Globulin Ratio 1.44 (1.60-3.17); Anion Gap 7.4 mmol/L (10.00-18.00); BUN/Creat Ratio 13.3 Ratio (12.00-20.00); Blood Urea Nitrogen 13.3 mg/dL (9.0-27.0); Carbon Dioxide 23.6 mmol/L (20.0-27.5); Globulin 2.7 g/dL (1.6-3.3); Non-African American GFR(CKD) 71.3 (60.0-200.0); Potassium 4.4 mmol/L (3.5-5.5); Total Bilirubin 0.4 mg/dL (0.30-1.20); Total Protein 6.6 g/dL (6.2-8.2)
[2021-09-25 15:11] LABS: INR 1.06 (0.90-1.11); Prothrombin Time 11.9 sec (9.9-11.9)
== END | disposition home or self-care (01) ==
LOC: LABWHC1 09:08
PROVIDERS: ATTEND Internal Medicine Hematology & Oncology
DX: C61 Malignant neoplasm of prostate (principal); K90.49 Malabsorption due to intolerance, not elsewhere classified
CPT/HCPCS: 36415; 80053; 83036; 84153; 84590; 85027; 85610

== ENCOUNTER → 2022-02-17 | Day surgery (SDC) | payer MEDICARE ==
[~2022-02-17] MED LIST changes: -BAMLANIVIMAB (EUA) 700 MG, ETESEVIMAB (EUA) 1,400 MG in SODIUM CHLORIDE 0.9% 100 ML IVPB ONE; +FAMOTIDINE 20 MG/2 ML VIAL IV PRN; +INSULIN ASPART (NovoLOG) 100 UNIT/ML VIAL SQ ONE; +LACTATED RINGERS 1,000 ML IV ONE; +LACTATED RINGERS 1,000 ML IV SCH; +LIDOCAINE 1% (10MG/ML) FOR IV START INTRADERMA PRN; +LIDOCAINE 1%-EPI 1:100,000 20 ML VIAL SQ ONE; +LIDOCAINE 2% INJ 20 MG/ML (2 ML VIAL) ONE; +MIDAZOLAM 2 MG/2 ML VIAL ONE; +ONDANSETRON 4 MG/2 ML VIAL IVP ONE; +PHENYLEPHRINE-0.9% NACL SYG 1,000 MCG/10 ML SYRINGE ONE; +PROPOFOL 10 MG/ML 20 ML VIAL IV ONE; -SODIUM CHLORIDE 0.9% 50 ML IVPB ONE; -SODIUM CHLORIDE 0.9% 500 ML 500 ML in EMPTY BAG 1 BAG IV PRN; +ePHEDrine 50 MG/ML 1 ML VIAL ONE; +fentaNYL (PF) 50 MCG/ML 2 ML AMP IV PRN; +fentaNYL (PF) 50 MCG/ML 2 ML AMP ONE
[2022-02-17 10:44] VITALS: RESP 16
[2022-02-17 10:58] LABS: Glucose,Whole Blood 311 mg/dL (70-110)
--- NOTE | 2022-02-17 13:11 | P.OP ---
Date of Procedure: 02/17/22 Preoperative Diagnosis: Right ear skin lesion Postoperative Diagnosis: Same Procedure(s) Performed: Excision right ear skin lesion Full-thickness skin graft reconstruction right ear defect Anesthesia: MARTINEZA Surgeon: Torrey Martin Estimated Blood Loss (ml): 2 Pathology: other (Right ear lesion) Condition: stable Disposition: PACU Indications for Procedure: This is an 81-year-old white male with a slowly enlarging right ear skin lesion Operative Findings: Nodular pink skin lesion with overlying ulceration right superior lateral ear- margins were negative on frozen section with atypical spindle cells but final pathology is pending Description of Procedure: The patient was brought in the operative suite and placed in a supine position. Patient underwent induction of general anesthesia with laryngeal mask airway intubation without difficulty. The patient was prepped and draped in usual aseptic fashion. 1% lidocaine with 1 [id number] epinephrine was infused subcutaneously and field block fashion at the right ear site as well as right supraclavicular area for full-thickness skin graft. The lesion was then excised from the surrounding tissue from the ear including the underlying cartilage with the medial rectus skin left intact. Hemostasis gained with electrocautery. Frozen section returned as above. Due to the size and location of the defect this required a full-thickness skin graft reconstruction. A skin graft was harvested with elliptical incision from the right supraclavicular area and was defatted. The edges of the wound are undermined hemostasis gained with electrocautery and the wound was closed with inverted interrupted subcutaneous 4-0 Vicryl suture skin closed with running locking 4-0 Prolene suture bacitracin ointment and sterile dressing were placed. The skin graft was then sutured circumferentially at the primary defect of the right ear using 5-0 Vicryl sutures left long. These were tied over a bolster of Adaptic covering a cottonball impregnated with bacitracin ointment. The patient was then allowed to emerge from anesthesia having tolerated procedure well was extubated in the operating suite and transferred to the postop recovery area in satisfactory condition.
[2022-02-17 13:23] VITALS: TEMP 97.4
[2022-02-17 15:19] VITALS: BP 125/72; PULSE 65
== END | disposition home or self-care (01) ==
LOC: OR 09:58
PROVIDERS: ATTEND Otolaryngology
DX: H61.891 Other specified disorders of right external ear (principal); I10 Essential (primary) hypertension; E78.5 Hyperlipidemia, unspecified; I25.10 Atherosclerotic heart disease of native coronary artery without angina pectoris; E11.9 Type 2 diabetes mellitus without complications; M19.90 Unspecified osteoarthritis, unspecified site; Z79.899 Other long term (current) drug therapy; Z88.8 Allergy status to other drugs, medicaments and biological substances; Z98.890 Other specified postprocedural states
CPT/HCPCS: 15004; 15120; J2250; J0690; J2405; J3010; J2370; J2704; J2001; 88305; 88331; 88332; 88341; 88342

== ENCOUNTER → 2022-03-10 | Outpatient (CLI) | payer MEDICARE ==
--- NOTE | 2022-03-11 13:22 | CT ---
EXAMINATION TYPE: CT ChestAbdPelvis w con CT DLP: 1273 mGycm, Automated exposure control for dose reduction was used. DATE OF EXAM: 03/10/2022 4:30 PM COMPARISON: Multiple CTs most recent abdomen pelvis 05/04/2021 and 08/18/2018 CT chest abdomen pelvis. 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 Two-dimensional cor onal and sagittal reconstructions were obtained. Contrast used:80 mL of Isovue 300 with IV Contrast, Oral contrast used: with Oral Contrast Findings: CHEST: LUNGS/ PLEURA: No evidence of focal consolidation, pneumothorax or pleural effusion. Right upper lobe pulmonary nodule measuring 3 mm unchanged from at least 2019. Left upper lobe pulmonary nodule measu ring 4 mm unchanged from 2019. AIRWAY: Patent and unremarkable. HEART: Size within normal limits. Coronary artery atherosclerosis is present. MEDIASTINUM: No gross evidence of adenopathy. VASCULATURE: No aortic aneurysm. Atherosclerosis of the arterial vasculature. MUSCULOSKELETAL: No acute osseous abnormalities. Sternotomy wires are present. Bone island in T11 is unchanged from 2011. SOFT TISSUES/LYMPH NODES: Unremarkable. LOWER NECK: No significant findings. ABDOMEN: ABDOMEN LIVER: Unremarkable GALLBLADDER AND BILE DUCTS: Redemonstration pneumobilia primarily affecting the left hepatic lobe. Th e gallbladder is not visualized and may be surgically absent. PANCREAS: Dilation of the main pancreatic duct visualized in the pancreatic body and tail measuring u p to 9 mm is unchanged from 05/04/2021 appears increased on 07/04/2019. SPLEEN: Unremarkable. ADRENAL GLANDS: Unremarkable. KIDNEYS AND URETERS: No evidence of hydronephrosis or renal calculus. The ureters are unremarkable. PELVIS BLADDER: Unremarkable REPRODUCTIVE: Prostate is enlarged in size measuring 5.2 cm in transverse dimension. ABDOMEN & PELVIS STOMACH AND BOWEL: No evidence of bowel obstruction. There is postsurgical changes to the bowel. Ther e is moderate to large amount stool within the colon. PERITONEUM: No evidence of pneumoperitoneum or free fluid. VASCULATURE: No evidence of aortic aneurysm. Atherosclerosis of the arterial vasculature. MUSCULOSKELETAL: No acute osseous abnormalities, multilevel disc degeneration changes throughout the spine. Similar degeneration of L3 with irregular shaped lucent areas visualized comparing to 2. LYMPH NODES: No gross evidence for lymphadenopathy. SOFT TISSUE/ABDOMINAL WALL: Unremarkable IMPRESSION: 1. Postsurgical changes in the abdomen without evidence for acute abdominal or thoracic process. 2. Postsurgical changes with gallbladder removal similar pneumobilia and dilation of the main pancre atic duct, findings similar to 05/04/2021 given lack of IV contrast on prior. 3. Large stool burden throughout the colon. 4. Prostatomegaly correlate with serum PSA.
== END | disposition home or self-care (01) ==
LOC: RADCTMAIN 14:31
PROVIDERS: ATTEND Internal Medicine Hematology & Oncology
DX: C25.9 Malignant neoplasm of pancreas, unspecified (principal); N40.0 Benign prostatic hyperplasia without lower urinary tract symptoms; Z98.890 Other specified postprocedural states
CPT/HCPCS: 82565; 84520; 71260; 74177; Q9967

== ENCOUNTER → 2022-03-22 | Outpatient (CLI) | payer MEDICARE ==
[2022-03-22 14:58] LABS: HGB 10.9 g/dL (13.0-17.0); MCH 28.2 pg (27.0-32.0); MCHC 31.1 g/dL (32.0-37.0); MCV 90.4 fL (80.0-97.0); Mean Platelet Volume 11.2 fL (9.5-12.2); NRBC Per 100 WBC 0 /100 WBCS (0.0-0.0); Platelet Count 156 X 10*3/uL (140-440); RBC 3.87 X 10*6/uL (4.40-5.60); WBC 5.41 X 10*3/uL (4.50-10.00)
[2022-03-22 15:33] LABS: % Iron Saturation 21.39 (15.00-50.00); ALT 89 U/L (10-49); AST 50 U/L (14-35); African American GFR (CKD) 97.9 (60.0-200.0); Albumin 3.5 g/dL (3.8-4.9); Albumin/Globulin Ratio 2.01 (1.60-3.17); Alkaline Phosphatase 131 U/L (41-126); BUN/Creat Ratio 10.61 Ratio (12.00-20.00); Blood Urea Nitrogen 8.5 mg/dL (9.0-27.0); Carbon Dioxide 24.9 mmol/L (20.0-27.5); Chloride 108 mmol/L (96-109); Globulin 1.7 g/dL (1.6-3.3); Glucose 146 mg/dL (70-110); Iron 50 ug/dL (65-175); Non-African American GFR(CKD) 84.5 (60.0-200.0); Potassium 3.8 mmol/L (3.5-5.5); Sodium 142 mmol/L (135-145); Total Iron Binding Capacity 234 ug/dL (228-460); Total Protein 5.2 g/dL (6.2-8.2)
[2022-03-22 15:42] LABS: Prostate Specific Antigen <0.01 ng/mL (0.00-6.50)
== END | disposition home or self-care (01) ==
LOC: LABWHC1 08:35
PROVIDERS: ATTEND Internal Medicine Hematology & Oncology
DX: Z12.5 Encounter for screening for malignant neoplasm of prostate (principal); D64.9 Anemia, unspecified
CPT/HCPCS: 36415; 80053; 83540; 83550; 84153; 84439; 84443; 85027

== ENCOUNTER 2022-04-25 14:59 | Emergency (ER) | payer MEDICARE ==
[2022-04-25 15:08] VITALS: TEMP 98.2
[2022-04-25] MEDS ORDERED: SODIUM CHLORIDE 0.9% 1,000 ML IV STA (15:21)
--- NOTE | 2022-04-25 16:11 | XR ---
EXAMINATION TYPE: XR chest 2V DATE OF EXAM: 04/25/2022 COMPARISON: 10/25/2016 HISTORY: Weakness TECHNIQUE: 3 views FINDINGS: Heart and mediastinum are normal. Lungs are clear. Diaphragm is normal. Bony thorax is norm al. IMPRESSION: No active cardiopulmonary disease. No change.
[2022-04-25 16:16] LABS: Basophils % (A) 0 %; Eosinophils # (A) 0.1 k/uL (0-0.7); Eosinophils % (A) 1 %; HCT 37.5 % (39.0-53.0); HGB 12.4 gm/dL (13.0-17.5); Lymphocytes # (A) 0.8 k/uL (1.0-4.8); Lymphocytes % (A) 17 %; MCH 29.3 pg (25.0-35.0); MCHC 33.1 g/dL (31.0-37.0); MCV 88.4 fL (80.0-100.0); Mean Platelet Volume 8.4; Monocytes # (A) 0.3 k/uL (0-1.0); Monocytes % (A) 5 %; Neutrophils # (A) 3.4 k/uL (1.3-7.7); Neutrophils % (A) 73 %; Platelet Count 134 k/uL (150-450); RBC 4.25 m/uL (4.30-5.90); RDW 13.9 % (11.5-15.5); WBC 4.7 k/uL (3.8-10.6)
[2022-04-25 16:19] LABS: Partial Thromboplastin Time 22.7 sec (22.0-30.0); Prothrombin Time 10.4 sec (9.0-12.0)
[2022-04-25 16:21] LABS: Appearance,Urine Clear (Clear); Bilirubin,Urine Negative (Negative); Blood,Urine Negative (Negative); Color,Urine Yellow; Glucose,Urine (UA) 4+ (Negative); Ketones,Urine Negative (Negative); Leukocyte Esterase,Urine Negative (Negative); Nitrite,Urine Negative (Negative); PH, Urine 5.5 (5.0-8.0); Protein,Urine Negative (Negative); Urobilinogen,Urine <2.0 mg/dL (<2.0)
--- NOTE | 2022-04-25 16:43 | ED ---
Abdominal Pain HPI - General Chief Complaint: Abdominal Pain Stated Complaint: abd pain, loss of appetite, light headed Time Seen by Provider: 04/25/22 15:13 Source: patient Mode of arrival: ambulatory Limitations: no limitations - History of Present Illness Initial Comments: Patient is an 81-year-old male presenting with weakness. Patient has been experiencing weakness for a few months. It started off intermittent weakness. Patient has history of pancreatic cancer with Whipple procedure, he was seen by his surgeon who performed endoscopy as well as ordered a CT of the chest abdomen and pelvis. Records of that CT showed no acute abnormality. Patient states over the last week his weakness has been worsening. He gets tired walking short distances. He admits to an occasional stomach ache but no consistent abdominal pain. No chest pain or difficulty breathing. He has had an unintentional weight loss. No palpitations, numbness, tingling. No nausea or vomiting. No headache, vision or hearing changes, dizziness. - Related Data Home Medications Medication Instructions Recorded Confirmed Aspirin 81 mg PO DAILY 08/23/16 04/25/22 Atorvastatin [Lipitor] 80 mg PO HS 08/23/16 04/25/22 Finasteride [Proscar] 5 mg PO DAILY 08/23/16 04/25/22 Losartan [Cozaar] 25 mg PO BID 08/23/16 04/25/22 Tamsulosin HCl [Flomax] 0.4 mg PO DAILY 08/23/16 04/25/22 allopurinoL [Zyloprim] 100 mg PO DAILY 08/23/16 04/25/22 Acarbose [Precose] 25 mg PO DAILY 07/04/19 04/25/22 Lipase/Protease/Amylase [Creon Dr 1 - 2 capsule PO AC-TID 07/04/19 04/25/22 24,000 Units Capsule] Pyridoxine [Vitamin B-6] 50 mg PO DAILY 07/04/19 04/25/22 glipiZIDE 5 mg PO DAILY 02/15/22 04/25/22 Cyanocobalamin [Vitamin B-12] 500 mcg PO DAILY 04/25/22 04/25/22 Ipratropium [place] 0.06%Nasal 1 spray EA NOSTRIL BID 04/25/22 04/25/22 [Atrovent Nasal 0.06%] Melatonin 5 mg PO HS 04/25/22 04/25/22 Sucralfate [Carafate] 1 gm PO HS 04/25/22 04/25/22 amLODIPine [Norvasc] 2.5 mg PO DAILY PRN 04/25/22 04/25/22 metFORMIN HCL 1,000 mg PO BID 04/25/22 04/25/22 Allergies Allergy/AdvReac Type Severity Reaction Status Date / Time clarithromycin [From Biaxin] Allergy Rash/Hives,red Verified 04/25/22 18:48 skin clopidogrel [From Plavix] Allergy Rash/Hives,red Verified 04/25/22 18:48 skin Review of Systems ROS Statement: Those systems with pertinent positive or pertinent negative responses have been documented in the HPI. ROS Other: All systems not noted in ROS Statement are negative. Past Medical History Past Medical History: Coronary Artery Disease (CAD), Cancer, Eye Disorder, Hypertension, Osteoarthritis (OA) Additional Past Medical History / Comment(s): hx. prostate cancer-dx. 2013- recent elevation in PSA so currently had radiation(last treatment was 2017) here,cataracts, low cholestral, Hx Gout. hx of recent ear infection with vertigo. Arthritis left knee. History of Any Multi-Drug Resistant Organisms: MRSA Date of last positivie culture/infection: 2008 MDRO Source:: left foot Past Surgical History: Coronary Bypass/CABG, Heart Catheterization, Orthopedic Surgery Additional Past Surgical History / Comment(s): angie shoulder arthroscopy, whipple surgery-benign tumor-had partial pancreatectomy, cataracts removed bilaterally Bypass 2002 Past Anesthesia/Blood Transfusion Reactions: Motion Sickness, Postoperative Nausea & Vomiting (PONV) Additional Past Anesthesia/Blood Transfusion Reaction / Comment(s): No blood tranfusions Past Psychological History: No Psychological Hx Reported Smoking Status: Never smoker Past Alcohol Use History: None Reported Past Drug Use History: None Reported - Past Family History Mother Family Medical History: No Reported History Additional Family Medical History / Comment(s): , natural causes Father Family Medical History: Congestive Heart Failure (CHF) General Exam Limitations: no limitations General appearance: alert, in no apparent distress Head exam: Present: atraumatic, normocephalic, normal inspection Eye exam: Present: normal appearance Neck exam: Present: normal inspection, full ROM Respiratory exam: Present: normal lung sounds bilaterally. Absent: respiratory distress, wheezes, rales, rhonchi, stridor Cardiovascular Exam: Present: regular rate, normal rhythm, normal heart sounds. Absent: systolic murmur, diastolic murmur, rubs, gallop, clicks GI/Abdominal exam: Present: soft. Absent: distended, tenderness, guarding, rebound, rigid Neurological exam: Present: alert, oriented X3, CN II-XII intact Expanded Patient oriented to: Present: person, place, time Speech: Present: fluid speech Cranial nerves: EOM's Intact: Normal Sensory exam: Upper Extremity Light Touch: Normal, Lower Extremity Light Touch: Normal Motor strength exam: RUE: 5, LUE: 5, RLE: 5, LLE: 5 Eye Response: (4) open spontaneously Motor Response: (6) obeys commands Verbal Response: (5) oriented Perla Total: 15 Psychiatric exam: Present: normal affect, normal mood Skin exam: Present: warm, dry, intact, normal color. Absent: rash Course Vital Signs 04/25/22 04/25/22 04/25/22 15:06 18:42 19:58 Temperature 98.2 F Pulse Rate 90 69 76 Respiratory 20 19 18 Rate Blood Pressure 130/95 128/65 121/67 O2 Sat by Pulse 99 98 99 Oximetry Medical Decision Making - Medical Decision Making Was pt. sent in by a medical professional or institution (HUBRET Guerrero, PROCESS SAFETY SPECIALIST, urgent care, hospital, or group home...) When possible be specific @ -[No] Did you speak to anyone other than the patient for history (EMS, parent, family, police, friend...)? What history was obtained from this source @ -[No] Did you review nursing and triage notes (agree or disagree)? Why? @ -[I reviewed and agree with nursing and triage notes] Were old charts reviewed (outside hosp., previous admission, EMS record, old EKG, old radiological studies, urgent care reports/EKG's, group home records)? Report findings @ -CT of the chest abdomen and pelvis from 03/10 is reviewed Differential Diagnosis (chest pain, altered mental status, abdominal pain women, abdominal pain men, vaginal bleeding, weakness, fever, dyspnea, syncope, headache, dizziness, GI bleed, back pain, seizure, CVA, palpatations, mental health)? @ -MDM Differential Weakness: Hypoglycemia, shock, sepsis, hyponatremia, anemia, infection, KS, ETOH, adverse medicine reaction, overdose, stroke. ... This is not meant to be an all- inclusive list EKG interpreted by me (3pts min.). @ -[As above] X-rays interpreted by me (1pt min.). @ -Chest x-ray shows no acute process CT interpreted by me (1pt min.). @ -[None done] U/S interpreted by me (1pt. min.). @ -[None done] What testing was considered but not performed or refused? (CT, X-rays, U/S, labs)? Why? @ -[None] What meds were considered but not given or refused? Why? @ -[None] Did you discuss the management of the patient with other professionals (professionals i.e. , PA, PROCESS SAFETY SPECIALIST, lab, RT, psych nurse, certified social workers in health care, integrity consultant, teacher, employee service officer, case consultant)? Give summary @ -[No] Was smoking cessation discussed for >3mins.? @ -[No] Was critical care preformed (if so, how long)? @ -[No] Were there social determinants of health that impacted care today? How? (Homelessness, low income, unemployed, alcoholism, drug addiction, transportation, low edu. Level, literacy, decrease access to med. care, longterm, rehab)? @ -[No] Was there de-escalation of care discussed even if they declined (Discuss DNR or withdrawal of care, Hospice)? DNR status @ -[No] What co-morbidities impacted this encounter? (DM, HTN, Smoking, COPD, CAD, Cancer, CVA, ARF, Chemo, Hep., AIDS, mental health diagnosis, sleep apnea, morbid obesity)? @ -Diabetes, CAD, hypertension Was patient admitted / discharged? Hospital course, mention meds given and route, prescriptions, significant lab abnormalities, going to OR and other pertinent info. @ -Patient is an 81-year-old male presenting with chief complaint of progressive weakness for several months. On physical examination heart and lungs are clear to auscultation and there are no focal neurological deficits. Lab work shows signs of dehydration, sodium 129 lactic acid 2.4. Patient seems to be an uncontrolled diabetic, glucose 407 and urine has 4+ glucose. Patient states that he previously used to check his blood sugar daily and once he got it under control he stopped following regimented diet. Magnesium is 1.4, will g michelle 1 gram of magnesium here in the ER. Patient is negative for Covid, influenza, RSV. EKG shows no acute changes from previous EKG. Chest x-ray shows no acute process. Patient will be given fluid bolus and insulin as well as 1 g magnesium.On reassessment patient reports feeling somewhat improved. His glucose is 179. He is provided with information on nutrition and diabetes. Instructed to follow-up with his PCP this week. May take an legw-mri-atylokc magnesium supplement as needed. Stay well-hydrated. He is requesting discharge home at this time.Follow-up with PCP. Report back to ER with any new or worsening symptoms. Discussed return parameters and answered all questions. Patient conveyed verbal understanding and agreed to the plan. I discussed this case in detail with my attending Dr. Rae Undiagnosed new problem with uncertain prognosis? @ -[No] Drug Therapy requiring intensive monitoring for toxicity (Heparin, Nitro, Insulin, Cardizem)? @ -[No] Were any procedures done? @ -[No] Diagnosis/symptom? @ -Hyperglycemia Acute, or Chronic, or Acute on Chronic? @ -Acute on chronic Uncomplicated (without systemic symptoms) or Complicated (systemic symptoms)? @ -Uncomplicated Side effects of treatment? @ -[No] Exacerbation, Progression, or Severe Exacerbation? @ -[No] Poses a threat to life or bodily function? How? (Chest pain, [place], KS, pneumonia, PE, COPD, DKA, ARF, appy, cholecystitis, CVA, Diverticulitis, Homicidal, Suicidal, threat to staff... and all critical care pts) @ -[No] Diagnosis/symptom? @Dehydration Acute, or Chronic, or Acute on Chronic? @Acute Uncomplicated (without systemic symptoms) or Complicated (systemic symptoms)? @Uncomplicated Side effects of treatment? @ [none] Exacerbation, Progression, or Severe Exacerbation] @ [no] Poses a threat to life or bodily function? @ [no] - Lab Data Result diagrams: 04/25/22 15:54 04/25/22 17:00 Lab Results 04/25/22 04/25/22 04/25/22 Range/Units 15:54 15:54 15:54 WBC 4.7 (3.8-10.6) k/uL RBC 4.25 L (4.30-5.90) m/uL Hgb 12.4 L (13.0-17.5) gm/dL Hct 37.5 L (39.0-53.0) % MCV 88.4 (80.0-100.0) fL MCH 29.3 (25.0-35.0) pg MCHC 33.1 (31.0-37.0) g/dL RDW 13.9 (11.5-15.5) % Plt Count 134 L (150-450) k/uL MPV 8.4 Neutrophils % 73 % Lymphocytes % 17 % Monocytes % 5 % Eosinophils % 1 % Basophils % 0 % Neutrophils # 3.4 (1.3-7.7) k/uL Lymphocytes # 0.8 L (1.0-4.8) k/uL Monocytes # 0.3 (0-1.0) k/uL Eosinophils # 0.1 (0-0.7) k/uL Basophils # 0.0 (0-0.2) k/uL PT 10.4 (9.0-12.0) sec INR 1.0 (<1.2) APTT 22.7 (22.0-30.0) sec Sodium (137-145) mmol/L Potassium (3.5-5.1) mmol/L Chloride (98-107) mmol/L Carbon Dioxide (22-30) mmol/L Anion Gap mmol/L BUN (9-20) mg/dL Creatinine (0.66-1.25) mg/dL Est GFR (CKD-EPI)AfAm (>60 ml/min/1.73 sqM) Est GFR (CKD-EPI)NonAf (>60 ml/min/1.73 sqM) Glucose (74-99) mg/dL POC Glucose (mg/dL) (70-110) mg/dL POC Glu Line Tender Flakeboard ID Lactic Ac Sepsis Rflx Plasma Lactic Acid Serjio 2.4 H* (0.7-2.0) mmol/L Calcium (8.4-10.2) mg/dL Phosphorus (2.5-4.5) mg/dL Magnesium (1.6-2.3) mg/dL Total Bilirubin (0.2-1.3) mg/dL AST (17-59) U/L ALT (4-49) U/L Alkaline Phosphatase (38-126) U/L Troponin I (0.000-0.034) ng/mL Total Protein (6.3-8.2) g/dL Albumin (3.5-5.0) g/dL TSH (0.465-4.680) mIU/L Urine Color Urine Appearance (Clear) Urine pH (5.0-8.0) Ur Specific [place] (1.001-1.035) Urine Protein (Negative) Urine Glucose (UA) (Negative) Urine Ketones (Negative) Urine Blood (Negative) Urine Nitrite (Negative) Urine Bilirubin (Negative) Urine Urobilinogen (<2.0) mg/dL Ur Leukocyte Esterase (Negative) Influenza Type A (PCR) (Not Detectd) Influenza Type B (PCR) (Not Detectd) RSV (PCR) (Not Detectd) SARS-CoV-2 (PCR) (Not Detectd) 04/25/22 04/25/22 04/25/22 Range/Units 15:54 15:54 16:00 WBC (3.8-10.6) k/uL RBC (4.30-5.90) m/uL Hgb (13.0-17.5) gm/dL Hct (39.0-53.0) % MCV (80.0-100.0) fL MCH (25.0-35.0) pg MCHC (31.0-37.0) g/dL RDW (11.5-15.5) % Plt Count (150-450) k/uL MPV Neutrophils % % Lymphocytes % % Monocytes % % Eosinophils % % Basophils % % Neutrophils # (1.3-7.7) k/uL Lymphocytes # (1.0-4.8) k/uL Monocytes # (0-1.0) k/uL Eosinophils # (0-0.7) k/uL Basophils # (0-0.2) k/uL PT (9.0-12.0) sec INR (<1.2) APTT (22.0-30.0) sec Sodium (137-145) mmol/L Potassium (3.5-5.1) mmol/L Chloride (98-107) mmol/L Carbon Dioxide (22-30) mmol/L Anion Gap mmol/L BUN (9-20) mg/dL Creatinine (0.66-1.25) mg/dL Est GFR (CKD-EPI)AfAm (>60 ml/min/1.73 sqM) Est GFR (CKD-EPI)NonAf (>60 ml/min/1.73 sqM) Glucose (74-99) mg/dL POC Glucose (mg/dL) (70-110) mg/dL POC Glu Line Tender [place]akeboard ID Lactic Ac Sepsis Rflx Plasma Lactic Acid Serjio (0.7-2.0) mmol/L Calcium (8.4-10.2) mg/dL Phosphorus (2.5-4.5) mg/dL Magnesium (1.6-2.3) mg/dL Total Bilirubin (0.2-1.3) mg/dL AST (17-59) U/L ALT (4-49) U/L Alkaline Phosphatase (38-126) U/L Troponin I <0.012 (0.000-0.034) ng/mL Total Protein (6.3-8.2) g/dL Albumin (3.5-5.0) g/dL TSH (0.465-4.680) mIU/L Urine Color Yellow Urine Appearance Clear (Clear) Urine pH 5.5 (5.0-8.0) Ur Specific [place] 1.020 (1.001-1.035) Urine Protein Negative (Negative) Urine Glucose (UA) 4+ H (Negative) Urine Ketones Negative (Negative) Urine Blood Negative (Negative) Urine Nitrite Negative (Negative) Urine Bilirubin Negative (Negative) Urine Urobilinogen <2.0 (<2.0) mg/dL Ur Leukocyte Esterase Negative (Negative) Influenza Type A (PCR) Not Detected (Not Detectd) Influenza Type B (PCR) Not Detected (Not Detectd) RSV (PCR) Not Detected (Not Detectd) SARS-CoV-2 (PCR) Not Detected (Not Detectd) 04/25/22 04/25/22 04/25/22 Range/Units 16:55 17:00 19:31 WBC (3.8-10.6) k/uL RBC (4.30-5.90) m/uL Hgb (13.0-17.5) gm/dL Hct (39.0-53.0) % MCV (80.0-100.0) fL MCH (25.0-35.0) pg MCHC (31.0-37.0) g/dL RDW (11.5-15.5) % Plt Count (150-450) k/uL MPV Neutrophils % % Lymphocytes % % Monocytes % % Eosinophils % % Basophils % % Neutrophils # (1.3-7.7) k/uL Lymphocytes # (1.0-4.8) k/uL Monocytes # (0-1.0) k/uL Eosinophils # (0-0.7) k/uL Basophils # (0-0.2) k/uL PT (9.0-12.0) sec INR (<1.2) APTT (22.0-30.0) sec Sodium 129 L (137-145) mmol/L Potassium 4.4 (3.5-5.1) mmol/L Chloride 102 (98-107) mmol/L Carbon Dioxide 19 L (22-30) mmol/L Anion Gap 8 mmol/L BUN 35 H (9-20) mg/dL Creatinine 0.91 (0.66-1.25) mg/dL Est GFR (CKD-EPI)AfAm >90 (>60 ml/min/1.73 sqM) Est GFR (CKD-EPI)NonAf 79 (>60 ml/min/1.73 sqM) Glucose 407 H (74-99) mg/dL POC Glucose (mg/dL) 179 H (70-110) mg/dL POC Glu Line Tender Flakeboard ID Veronica Causey Lactic Ac Sepsis Rflx Y Plasma Lactic Acid Serjio (0.7-2.0) mmol/L Calcium 8.5 (8.4-10.2) mg/dL Phosphorus 3.5 (2.5-4.5) mg/dL Magnesium 1.4 L (1.6-2.3) mg/dL Total Bilirubin 0.4 (0.2-1.3) mg/dL AST 34 (17-59) U/L ALT 72 H (4-49) U/L Alkaline Phosphatase 176 H (38-126) U/L Troponin I (0.000-0.034) ng/mL Total Protein 5.2 L (6.3-8.2) g/dL Albumin 2.9 L (3.5-5.0) g/dL TSH 2.230 (0.465-4.680) mIU/L Urine Color Urine Appearance (Clear) Urine pH (5.0-8.0) Ur Specific [place] (1.001-1.035) Urine Protein (Negative) Urine Glucose (UA) (Negative) Urine Ketones (Negative) Urine Blood (Negative) Urine Nitrite (Negative) Urine Bilirubin (Negative) Urine Urobilinogen (<2.0) mg/dL Ur Leukocyte Esterase (Negative) Influenza Type A (PCR) (Not Detectd) Influenza Type B (PCR) (Not Detectd) RSV (PCR) (Not Detectd) SARS-CoV-2 (PCR) (Not Detectd) 04/25/22 Range/Units 19:35 WBC (3.8-10.6) k/uL RBC (4.30-5.90) m/uL Hgb (13.0-17.5) gm/dL Hct (39.0-53.0) % MCV (80.0-100.0) fL MCH (25.0-35.0) pg MCHC (31.0-37.0) g/dL RDW (11.5-15.5) % Plt Count (150-450) k/uL MPV Neutrophils % % Lymphocytes % % Monocytes % % Eosinophils % % Basophils % % Neutrophils # (1.3-7.7) k/uL Lymphocytes # (1.0-4.8) k/uL Monocytes # (0-1.0) k/uL Eosinophils # (0-0.7) k/uL Basophils # (0-0.2) k/uL PT (9.0-12.0) sec INR (<1.2) APTT (22.0-30.0) sec Sodium (137-145) mmol/L Potassium (3.5-5.1) mmol/L Chloride (98-107) mmol/L Carbon Dioxide (22-30) mmol/L Anion Gap mmol/L BUN (9-20) mg/dL Creatinine (0.66-1.25) mg/dL Est GFR (CKD-EPI)AfAm (>60 ml/min/1.73 sqM) Est GFR (CKD-EPI)NonAf (>60 ml/min/1.73 sqM) Glucose (74-99) mg/dL POC Glucose (mg/dL) (70-110) mg/dL POC Glu Line Tender [place] ID Lactic Ac Sepsis Rflx Plasma Lactic Acid Serjio 1.6 (0.7-2.0) mmol/L Calcium (8.4-10.2) mg/dL Phosphorus (2.5-4.5) mg/dL Magnesium (1.6-2.3) mg/dL Total Bilirubin (0.2-1.3) mg/dL AST (17-59) U/L ALT (4-49) U/L Alkaline Phosphatase (38-126) U/L Troponin I (0.000-0.034) ng/mL Total Protein (6.3-8.2) g/dL Albumin (3.5-5.0) g/dL TSH (0.465-4.680) mIU/L Urine Color Urine Appearance (Clear) Urine pH (5.0-8.0) Ur Specific [place] (1.001-1.035) Urine Protein (Negative) Urine Glucose (UA) (Negative) Urine Ketones (Negative) Urine Blood (Negative) Urine Nitrite (Negative) Urine Bilirubin (Negative) Urine Urobilinogen (<2.0) mg/dL Ur Leukocyte Esterase (Negative) Influenza Type A (PCR) (Not Detectd) Influenza Type B (PCR) (Not Detectd) RSV (PCR) (Not Detectd) SARS-CoV-2 (PCR) (Not Detectd) - EKG Data -: EKG Interpreted by Me EKG Comments: Sinus rhythm with occasional ventricular premature complexes. Ventricular rate 79. MS interval 156. QRS 139. QT 382. QTC 416. No change from previous EKG Disposition Clinical Impression: Dehydration, Hypomagnesemia, Hyperglycemia Disposition: HOME SELF-CARE Condition: Good Instructions (If sedation given, give patient instructions): Dehydration (ED), Basic Carbohydrate Counting (DC), Meal Planning with the Plate Method (DC), Meal Planning with Diabetes Exchanges (DC), Hypomagnesemia (ED), Diabetic Hyperglycemia (ED), Mediterranean Diet (DC), Diabetes and Exercise (ED) Additional Instructions: Follow-up with PCP. Report back to ER with any new or worsening symptoms. Follow diet suggestions to help control diabetes. You may take an [id number] magnesium supplement as needed. Is patient prescribed a controlled substance at d/c from ED?: No Referrals: Rah Tsai MD [Primary Care Provider] - 1-2 days Time of Disposition: :29
[2022-04-25 17:26] LABS: ALT 72 U/L (4-49); AST 34 U/L (17-59); African American GFR (CKD) >90 (>60 ml/min/1.73 sqM); Albumin 2.9 g/dL (3.5-5.0); Alkaline Phosphatase 176 U/L (38-126); Anion Gap 8 mmol/L; Blood Urea Nitrogen 35 mg/dL (9-20); Calcium 8.5 mg/dL (8.4-10.2); Carbon Dioxide 19 mmol/L (22-30); Chloride 102 mmol/L (98-107); Glucose 407 mg/dL (74-99); Magnesium 1.4 mg/dL (1.6-2.3); Non-African American GFR(CKD) 79 (>60 ml/min/1.73 sqM); Phosphorus 3.5 mg/dL (2.5-4.5); Potassium 4.4 mmol/L (3.5-5.1); Sodium 129 mmol/L (137-145); Total Bilirubin 0.4 mg/dL (0.2-1.3); Total Protein 5.2 g/dL (6.3-8.2)
[2022-04-25] MEDS ORDERED: INSULIN REGULAR 100 UNIT/ML VIAL (IV) IV ONE (17:46)
[2022-04-25] MEDS ORDERED: MAGNESIUM SULFATE-D5W PMX 1 GM in DEXTROSE/WATER 1 100ML.BAG IVPB ONE (17:46)
[2022-04-25] MEDS ORDERED: SODIUM CHLORIDE 0.9% 500 ML 500 ML IV ONE (17:53)
[2022-04-25 19:33] LABS: Glucose,Whole Blood 179 mg/dL (70-110)
[2022-04-25 19:59] VITALS: BP 121/67; PULSE 76; RESP 18
== END 2022-04-25 19:58 | disposition home or self-care (01) ==
LOC: EC 14:59
DX: E86.0 Dehydration (principal); E83.42 Hypomagnesemia; E78.5 Hyperlipidemia, unspecified; I10 Essential (primary) hypertension; I25.10 Atherosclerotic heart disease of native coronary artery without angina pectoris; Z79.82 Long term (current) use of aspirin; Z79.84 Long term (current) use of oral hypoglycemic drugs; Z79.899 Other long term (current) drug therapy; Z20.822 Contact with and (suspected) exposure to COVID-19
CPT/HCPCS: 36415; 93005; 80053; 84443; 83605; 83735; 84100; 84484; 85025; 85610; 85730; 81003; 87636; 71046; 99284; J3475

== ENCOUNTER → 2022-07-16 | Outpatient (CLI) | payer MEDICARE ==
[2022-07-16 11:35] LABS: ALT 81 U/L (10-49); AST 45 U/L (14-35); African American GFR (CKD) 68.6 (60.0-200.0); Albumin 4.4 g/dL (3.8-4.9); Albumin/Globulin Ratio 1.77 (1.60-3.17); Alkaline Phosphatase 152 U/L (41-126); BUN/Creat Ratio 20.69 Ratio (12.00-20.00); C Reactive Protein <0.30 mg/dL (0.00-0.80); Calcium 9.8 mg/dL (8.7-10.3); Carbon Dioxide 17.8 mmol/L (20.0-27.5); Chloride 112 mmol/L (96-109); GGT 108 U/L (0-73); Globulin 2.5 g/dL (1.6-3.3); Glucose 71 mg/dL (70-110); Non-African American GFR(CKD) 59.1 (60.0-200.0); Potassium 4.4 mmol/L (3.5-5.5); Sodium 145 mmol/L (135-145)
[2022-07-16 11:36] LABS: C-Peptide 2.07 ng/mL (0.81-3.85)
== END | disposition home or self-care (01) ==
LOC: LABWHC1 08:05
PROVIDERS: ATTEND Internal Medicine
DX: E11.9 Type 2 diabetes mellitus without complications (principal)
CPT/HCPCS: 36415; 80053; 82977; 83036; 84403; 84439; 84443; 84681; 85652; 86140

== ENCOUNTER → 2022-09-02 | Outpatient (CLI) | payer MEDICARE ==
[2022-09-02 15:57] LABS: African American GFR (CKD) 54.6 (60.0-200.0); Blood Urea Nitrogen 37.9 mg/dL (9.0-27.0); Chloride 108 mmol/L (96-109); Non-African American GFR(CKD) 47.1 (60.0-200.0); Potassium 4.9 mmol/L (3.5-5.5); Sodium 135 mmol/L (135-145)
[2022-09-02 15:59] LABS: Prostate Specific Antigen <0.01 ng/mL (0.00-6.50)
== END | disposition home or self-care (01) ==
LOC: LABWHC1 11:54
PROVIDERS: ATTEND Urology
DX: E11.65 Type 2 diabetes mellitus with hyperglycemia (principal); C61 Malignant neoplasm of prostate; N19 Unspecified kidney failure
CPT/HCPCS: 36415; 80051; 82043; 82565; 82570; 83036; 84153; 84520

== ENCOUNTER → 2022-10-04 | Outpatient (CLI) | payer MEDICARE ==
[2022-10-04 17:30] LABS: Vitamin B12 >3600.0 pg/mL (200.0-944.0)
== END | disposition home or self-care (01) ==
LOC: LABWHC1 08:09
PROVIDERS: ATTEND Internal Medicine
DX: E11.65 Type 2 diabetes mellitus with hyperglycemia (principal); E03.8 Other specified hypothyroidism
CPT/HCPCS: 36415; 82533; 82607; 84443

== ENCOUNTER → 2022-10-14 | Outpatient (CLI) | payer MEDICARE ==
[2022-10-14 16:37] LABS: % Iron Saturation 44.11 (15.00-50.00); ALT 95 U/L (10-49); AST 51 U/L (14-35); Albumin 4.1 d/dL (3.8-4.9); Albumin/Globulin Ratio 1.86 Ratio (1.60-3.17); Alkaline Phosphatase 142 U/L (41-126); BUN/Creat Ratio 34.92 Ratio (12.00-20.00); Blood Urea Nitrogen 45.4 mg/dL (9.0-27.0); Calcium 10.1 mg/dL (8.7-10.3); Carbon Dioxide 17.4 mmol/L (21.6-31.8); Chloride 112 mmol/L (96-109); Globulin 2.2 d/dL (1.6-3.3); Glucose 168 mg/dL (70-110); Iron 116 UG/DL (65-175); Potassium 4.4 mmol/L (3.5-5.5); Sodium 141 mmol/L (135-145); Total Bilirubin 0.5 mg/dL (0.3-1.2); Total Iron Binding Capacity 263 UG/DL (228-460); Total Protein 6.3 d/dL (6.2-8.2)
[2022-10-14 16:38] LABS: HCT 34.7 % (39.6-50.0); HGB 11.3 d/dL (12.0-15.0); MCH 30.2 pg (27.0-32.0); MCHC 32.6 d/dL (32.0-37.0); MCV 92.8 FL (80.0-97.0); Mean Platelet Volume 10.8 FL (9.5-12.2); NRBC Per 100 WBC 0 X 10*3/uL (0.00-0.01); Platelet Count 169 X 10*3/uL (140-440); RBC 3.74 X 10*6/uL (4.40-5.60); RDW 13.4 % (11.5-14.5)
== END | disposition home or self-care (01) ==
LOC: LABWHC1 07:57
PROVIDERS: ATTEND Internal Medicine Hematology & Oncology
DX: E11.9 Type 2 diabetes mellitus without complications (principal); D64.9 Anemia, unspecified; E03.8 Other specified hypothyroidism
CPT/HCPCS: 36415; 80053; 82378; 82533; 82728; 83540; 83550; 85027; 85045

== ENCOUNTER → 2022-11-16 | Outpatient (CLI) | payer MEDICARE ==
[2022-11-16 15:48] LABS: ALT 75 U/L (10-49); AST 40 U/L (14-35); Albumin 4.4 d/dL (3.8-4.9); Albumin/Globulin Ratio 1.83 Ratio (1.60-3.17); Alkaline Phosphatase 139 U/L (41-126); BUN/Creat Ratio 25.08 Ratio (12.00-20.00); Blood Urea Nitrogen 30.1 mg/dL (9.0-27.0); Calcium 9.9 mg/dL (8.7-10.3); Carbon Dioxide 17.8 mmol/L (21.6-31.8); Chloride 112 mmol/L (96-109); Chol/HDL Ratio 2.13 Ratio; Globulin 2.4 d/dL (1.6-3.3); Glucose 137 mg/dL (70-110); LDL Cholesterol,Calculated 42.7 mg/dL (0.0-131.0); Potassium 4.7 mmol/L (3.5-5.5); Sodium 141 mmol/L (135-145); Total Bilirubin 0.5 mg/dL (0.3-1.2); Total Protein 6.8 d/dL (6.2-8.2)
[2022-11-16 16:58] LABS: Prostate Specific Antigen <0.01 ng/mL (0.000-6.500)
[2022-11-16 17:32] LABS: HCT 36.7 % (39.6-50.0); HGB 11.3 d/dL (13.0-17.0); MCH 30.2 pg (27.0-32.0); MCHC 30.8 d/dL (32.0-37.0); MCV 98.1 FL (80.0-97.0); Mean Platelet Volume 11.1 FL (9.5-12.2); NRBC Per 100 WBC 0 X 10*3/uL (0.00-0.01); Platelet Count 178 X 10*3/uL (140-440); RBC 3.74 X 10*6/uL (4.40-5.60); RDW 14.5 % (11.5-14.5); WBC 6.87 X 10*3/uL (4.50-10.00)
== END | disposition home or self-care (01) ==
LOC: LABWHC1 08:18
PROVIDERS: ATTEND Internal Medicine Hematology & Oncology
DX: Z00.00 Encounter for general adult medical examination without abnormal findings (principal); E11.9 Type 2 diabetes mellitus without complications; D64.9 Anemia, unspecified; E03.8 Other specified hypothyroidism
CPT/HCPCS: 36415; 80053; 80061; 83036; 84153; 85027

== ENCOUNTER 2022-11-25 09:11 | Inpatient (IN) | payer MEDICARE ==
--- NOTE | 2022-11-25 09:46 | ED ---
General Adult HPI - General Chief complaint: Shortness of Breath Stated complaint: SOB,weakness Time Seen by Provider: 11/25/22 09:22 Source: patient, family, RN notes reviewed Mode of arrival: ambulatory Limitations: no limitations - History of Present Illness Initial comments: Patient is a pleasant 81-year-old male presenting to the emergency department with several complaints. Symptoms have been occurring for a week or 2, worsening today. Patient was only able to walk around 10 feet before becoming fatigued. Patient had exertional dyspnea. Patient has had some minimal chest discomfort. Patient feels fatigued and somewhat weak all over. No confusion. No isolated area of weakness. No cough. No history of previous lung disease. - Related Data Home Medications Medication Instructions Recorded Confirmed Aspirin 81 mg PO DAILY 08/23/16 04/25/22 Atorvastatin [Lipitor] 80 mg PO HS 08/23/16 04/25/22 Finasteride [Proscar] 5 mg PO DAILY 08/23/16 04/25/22 Losartan [Cozaar] 25 mg PO BID 08/23/16 04/25/22 Tamsulosin HCl [Flomax] 0.4 mg PO DAILY 08/23/16 04/25/22 allopurinoL [Zyloprim] 100 mg PO DAILY 08/23/16 04/25/22 Acarbose [Precose] 25 mg PO DAILY 07/04/19 04/25/22 Lipase/Protease/Amylase [Creon Dr 1 - 2 capsule PO AC-TID 07/04/19 04/25/22 24,000 Units Capsule] Pyridoxine [Vitamin B-6] 50 mg PO DAILY 07/04/19 04/25/22 glipiZIDE 5 mg PO DAILY 02/15/22 04/25/22 Cyanocobalamin [Vitamin B-12] 500 mcg PO DAILY 04/25/22 04/25/22 Ipratropium Edwards 0.06%Nasal 1 spray EA NOSTRIL BID 04/25/22 04/25/22 [Atrovent Nasal 0.06%] Melatonin 5 mg PO HS 04/25/22 04/25/22 Sucralfate [Carafate] 1 gm PO HS 04/25/22 04/25/22 amLODIPine [Norvasc] 2.5 mg PO DAILY PRN 04/25/22 04/25/22 metFORMIN HCL 1,000 mg PO BID 04/25/22 04/25/22 Allergies Allergy/AdvReac Type Severity Reaction Status Date / Time clarithromycin [From Biaxin] Allergy Rash/Hives,red Verified 11/25/22 09:19 skin clopidogrel [From Plavix] Allergy Rash/Hives,red Verified 11/25/22 09:19 skin Review of Systems ROS Statement: Those systems with pertinent positive or pertinent negative responses have been documented in the HPI. ROS Other: All systems not noted in ROS Statement are negative. Constitutional: Denies: fever Eyes: Denies: eye pain ENT: Denies: ear pain Respiratory: Reports: as per HPI, dyspnea. Denies: cough Cardiovascular: Reports: as per HPI, chest pain, dyspnea on exertion Endocrine: Reports: as per HPI, fatigue Gastrointestinal: Denies: abdominal pain Genitourinary: Denies: dysuria Musculoskeletal: Denies: back pain Skin: Denies: rash Neurological: Reports: as per HPI. Denies: headache, confusion Past Medical History Past Medical History: Coronary Artery Disease (CAD), Cancer, Eye Disorder, Hypertension, Osteoarthritis (OA) Additional Past Medical History / Comment(s): hx. prostate cancer-dx. 2013- recent elevation in PSA so currently had radiation(last treatment was 2018) here,cataracts, low cholestral, Hx Gout. hx of recent ear infection with vertigo. Arthritis left knee. History of Any Multi-Drug Resistant Organisms: MRSA Date of last positivie culture/infection: 2008 MDRO Source:: left foot Past Surgical History: Coronary Bypass/CABG, Heart Catheterization, Orthopedic Surgery Additional Past Surgical History / Comment(s): angie shoulder arthroscopy, whipple surgery-benign tumor-had partial pancreatectomy, cataracts removed bilaterally Bypass 2002 Past Anesthesia/Blood Transfusion Reactions: Motion Sickness, Postoperative Nausea & Vomiting (PONV) Additional Past Anesthesia/Blood Transfusion Reaction / Comment(s): No blood t ranfusions Past Psychological History: No Psychological Hx Reported Smoking Status: Never smoker Past Alcohol Use History: None Reported Past Drug Use History: None Reported - Past Family History Mother Family Medical History: No Reported History Additional Family Medical History / Comment(s): , natural causes Father Family Medical History: Congestive Heart Failure (CHF) General Exam Limitations: no limitations General appearance: alert, in no apparent distress Head exam: Present: atraumatic, normocephalic Eye exam: Present: normal appearance, PERRL Neck exam: Present: normal inspection. Absent: tenderness Respiratory exam: Present: normal lung sounds bilaterally. Absent: respiratory distress Cardiovascular Exam: Present: regular rate, normal rhythm Expanded Peripheral pulses: 2+: Radial (R), Radial (L), Dorsalis Pedis (R), Dorsalis Pedis (L) GI/Abdominal exam: Present: soft. Absent: tenderness Extremities exam: Present: normal inspection Neurological exam: Present: alert, oriented X3, CN II-XII intact. Absent: motor sensory deficit Expanded Neurological exam: Present: protecting the airway Patient oriented to: Present: person, place, time Speech: Present: fluid speech Motor strength exam: RUE: 5, LUE: 5, RLE: 5, LLE: 5 Eye Response: (4) open spontaneously Motor Response: (6) obeys commands Verbal Response: (5) oriented Psychiatric exam: Present: normal affect, normal mood Skin exam: Present: normal color Course Vital Signs 11/25/22 11/25/22 11/25/22 09:17 09:29 09:42 Temperature 98.5 F Pulse Rate 67 63 Respiratory 20 18 18 Rate Blood Pressure 106/69 116/76 O2 Sat by Pulse 97 Oximetry 11/25/22 11/25/22 10:19 11:52 Temperature Pulse Rate 61 62 Respiratory 18 18 Rate Blood Pressure 103/63 102/59 O2 Sat by Pulse 97 95 Oximetry EKG Findings - EKG Results: EKG: interpreted by ERMD (Right bundle-branch block. Occasional supraventricular premature beat. Nonspecific T waves. Right axis.), sinus rhythm EKG shows: bradycardia Medical Decision Making - Medical Decision Making Was pt. sent in by a medical professional or institution (, PA, BRUSH OR BROOM CUTTER, urgent care, hospital, or senior care...) When possible be specific @ -No Did you speak to anyone other than the patient for history (EMS, parent, family, police, friend...)? What history was obtained from this source @ - is present and helps provide history including onset Did you review nursing and triage notes (agree or disagree)? Why? @ -I reviewed and agree with nursing and triage notes Were old charts reviewed (outside hosp., previous admission, EMS record, old EKG, old radiological studies, urgent care reports/EKG's, senior care records)? Report findings @ -No old charts were reviewed Differential Diagnosis (chest pain, altered mental status, abdominal pain women, abdominal pain men, vaginal bleeding, weakness, fever, dyspnea, syncope, headache, dizziness, GI bleed, back pain, seizure, CVA, palpatations, mental health, musculoskeletal)? @ -Differential Weakness: Hypoglycemia, shock, sepsis, hyponatremia, anemia, infection, AR, ETOH, adverse medicine reaction, overdose, stroke, this is not meant to be an all-inclusive list. EKG interpreted by me (3pts min.). @ -As above X-rays interpreted by me (1pt min.). @ -Chest x-ray interpreted by myself shows no acute process. Sternotomy wires present. CT interpreted by me (1pt min.). @ -None done U/S interpreted by me (1pt. min.). @ -None done What testing was considered but not performed or refused? (CT, X-rays, U/S, labs)? Why? @ -None What meds were considered but not given or refused? Why? @ -None Did you discuss the management of the patient with other professionals (professionals i.e. , PA, BRUSH OR BROOM CUTTER, lab, RT, psych nurse, social media content specialist, sql report developer, teacher, [place] customs and border officer, correctional case records supervisor)? Give summary @ -Case was discussed with Dr. Black, who will admit covering hospital call. Was smoking cessation discussed for >3mins.? @ -No Was critical care preformed (if so, how long)? @ -No Were there social determinants of health that impacted care today? How? (Homelessness, low income, unemployed, alcoholism, drug addiction, transportation, low edu. Level, literacy, decrease access to med. care, correction, rehab)? @ -No Was there de-escalation of care discussed even if they declined (Discuss DNR or withdrawal of care, Hospice)? DNR status @ -No What co-morbidities impacted this encounter? (DM, HTN, Smoking, COPD, CAD, Cance r, CVA, ARF, Chemo, Hep., AIDS, mental health diagnosis, sleep apnea, morbid obesity)? @ -None Was patient admitted / discharged? Hospital course, mention meds given and route, prescriptions, significant lab abnormalities, going to OR and other pertinent info. @ -Patient reevaluated and resting comfortably in bed. Patient does have some dehydration/ jamie with CO2 of 12. Patient will be admitted with gentle hydration and echo Undiagnosed new problem with uncertain prognosis? @ -No Drug Therapy requiring intensive monitoring for toxicity (Heparin, Nitro, Insulin, Cardizem)? @ -No Were any procedures done? @ -No Diagnosis/symptom? @ -jamie Acute, or Chronic, or Acute on Chronic? @ -Acute Uncomplicated (without systemic symptoms) or Complicated (systemic symptoms)? @ -default Side effects of treatment? @ -No Exacerbation, Progression, or Severe Exacerbation? @ -No Poses a threat to life or bodily function? How? (Chest pain, USA, AR, pneumonia, PE, COPD, DKA, ARF, appy, cholecystitis, CVA, Diverticulitis, Homicidal, Suicidal, threat to staff... and all critical care pts) @ -No - Lab Data Result diagrams: 11/25/22 09:47 11/25/22 09:47 Lab Results 11/25/22 11/25/22 11/25/22 Range/Units 09:47 09:47 09:47 WBC 5.2 (3.8-10.6) k/uL RBC 3.80 L (4.30-5.90) m/uL Hgb 11.8 L (13.0-17.5) gm/dL Hct 36.4 L (39.0-53.0) % MCV 95.8 (80.0-100.0) fL MCH 30.9 (25.0-35.0) pg MCHC 32.3 (31.0-37.0) g/dL RDW 13.8 (11.5-15.5) % Plt Count 143 L (150-450) k/uL MPV 8.4 Neutrophils % 68 % Lymphocytes % 21 % Monocytes % 6 % Eosinophils % 3 % Basophils % 0 % Neutrophils # 3.6 (1.3-7.7) k/uL Lymphocytes # 1.1 (1.0-4.8) k/uL Monocytes # 0.3 (0-1.0) k/uL Eosinophils # 0.2 (0-0.7) k/uL Basophils # 0.0 (0-0.2) k/uL PT 11.1 (9.0-12.0) sec INR 1.1 (<1.2) APTT 24.0 (22.0-30.0) sec Sodium 137 (137-145) mmol/L Potassium 5.1 (3.5-5.1) mmol/L Chloride 111 H (98-107) mmol/L Carbon Dioxide 12 L (22-30) mmol/L Anion Gap 14 mmol/L BUN 47 H (9-20) mg/dL Creatinine 1.26 H (0.66-1.25) mg/dL Est GFR (CKD-EPI)AfAm 62 (>60 ml/min/1.73 sqM) Est GFR (CKD-EPI)NonAf 54 (>60 ml/min/1.73 sqM) Glucose 196 H (74-99) mg/dL Plasma Lactic Acid Serjio (0.7-2.0) mmol/L Calcium 10.7 H (8.4-10.2) mg/dL Magnesium 1.6 (1.6-2.3) mg/dL Total Bilirubin 0.7 (0.2-1.3) mg/dL AST 97 H (17-59) U/L ALT 115 H (4-49) U/L Alkaline Phosphatase 108 (38-126) U/L Troponin I (0.000-0.034) ng/mL NT-Pro-B Natriuret Pep 224 pg/mL Total Protein 7.0 (6.3-8.2) g/dL Albumin 4.1 (3.5-5.0) g/dL TSH 5.950 H (0.465-4.680) mIU/L Free T4 1.03 (0.78-2.19) ng/dL Free T3 pg/mL 3.3 (2.8-5.3) pg/ml Urine Color Urine Appearance (Clear) Urine pH (5.0-8.0) Ur Specific [place] (1.001-1.035) Urine Protein (Negative) Urine Glucose (UA) (Negative) Urine Ketones (Negative) Urine Blood (Negative) Urine Nitrite (Negative) Urine Bilirubin (Negative) Urine Urobilinogen (<2.0) mg/dL Ur Leukocyte Esterase (Negative) Coronavirus (PCR) (Not Detectd) 11/25/22 11/25/22 11/25/22 Range/Units 09:47 09:47 10:10 WBC (3.8-10.6) k/uL RBC (4.30-5.90) m/uL Hgb (13.0-17.5) gm/dL Hct (39.0-53.0) % MCV (80.0-100.0) fL MCH (25.0-35.0) pg MCHC (31.0-37.0) g/dL RDW (11.5-15.5) % Plt Count (150-450) k/uL MPV Neutrophils % % Lymphocytes % % Monocytes % % Eosinophils % % Basophils % % Neutrophils # (1.3-7.7) k/uL Lymphocytes # (1.0-4.8) k/uL Monocytes # (0-1.0) k/uL Eosinophils # (0-0.7) k/uL Basophils # (0-0.2) k/uL PT (9.0-12.0) sec INR (<1.2) APTT (22.0-30.0) sec Sodium (137-145) mmol/L Potassium (3.5-5.1) mmol/L Chloride (98-107) mmol/L Carbon Dioxide (22-30) mmol/L Anion Gap mmol/L BUN (9-20) mg/dL Creatinine (0.66-1.25) mg/dL Est GFR (CKD-EPI)AfAm (>60 ml/min/1.73 sqM) Est GFR (CKD-EPI)NonAf (>60 ml/min/1.73 sqM) Glucose (74-99) mg/dL Plasma Lactic Acid Serjio 1.1 (0.7-2.0) mmol/L Calcium (8.4-10.2) mg/dL Magnesium (1.6-2.3) mg/dL Total Bilirubin (0.2-1.3) mg/dL AST (17-59) U/L ALT (4-49) U/L Alkaline Phosphatase (38-126) U/L Troponin I <0.012 (0.000-0.034) ng/mL NT-Pro-B Natriuret Pep pg/mL Total Protein (6.3-8.2) g/dL Albumin (3.5-5.0) g/dL TSH (0.465-4.680) mIU/L Free T4 (0.78-2.19) ng/dL Free T3 pg/mL (2.8-5.3) pg/ml Urine Color Light Yellow Urine Appearance Clear (Clear) Urine pH 5.5 (5.0-8.0) Ur Specific [place] 1.012 (1.001-1.035) Urine Protein Negative (Negative) Urine Glucose (UA) Negative (Negative) Urine Ketones Negative (Negative) Urine Blood Negative (Negative) Urine Nitrite Negative (Negative) Urine Bilirubin Negative (Negative) Urine Urobilinogen <2.0 (<2.0) mg/dL Ur Leukocyte Esterase Negative (Negative) Coronavirus (PCR) (Not Detectd) 11/25/22 Range/Units 10:10 WBC (3.8-10.6) k/uL RBC (4.30-5.90) m/uL Hgb (13.0-17.5) gm/dL Hct (39.0-53.0) % MCV (80.0-100.0) fL MCH (25.0-35.0) pg MCHC (31.0-37.0) g/dL RDW (11.5-15.5) % Plt Count (150-450) k/uL MPV Neutrophils % % Lymphocytes % % Monocytes % % Eosinophils % % Basophils % % Neutrophils # (1.3-7.7) k/uL Lymphocytes # (1.0-4.8) k/uL Monocytes # (0-1.0) k/uL Eosinophils # (0-0.7) k/uL Basophils # (0-0.2) k/uL PT (9.0-12.0) sec INR (<1.2) APTT (22.0-30.0) sec Sodium (137-145) mmol/L Potassium (3.5-5.1) mmol/L Chloride (98-107) mmol/L Carbon Dioxide (22-30) mmol/L Anion Gap mmol/L BUN (9-20) mg/dL Creatinine (0.66-1.25) mg/dL Est GFR (CKD-EPI)AfAm (>60 ml/min/1.73 sqM) Est GFR (CKD-EPI)NonAf (>60 ml/min/1.73 sqM) Glucose (74-99) mg/dL Plasma Lactic Acid Serjio (0.7-2.0) mmol/L Calcium (8.4-10.2) mg/dL Magnesium (1.6-2.3) mg/dL Total Bilirubin (0.2-1.3) mg/dL AST (17-59) U/L ALT (4-49) U/L Alkaline Phosphatase (38-126) U/L Troponin I (0.000-0.034) ng/mL NT-Pro-B Natriuret Pep pg/mL Total Protein (6.3-8.2) g/dL Albumin (3.5-5.0) g/dL TSH (0.465-4.680) mIU/L Free T4 (0.78-2.19) ng/dL Free T3 pg/mL (2.8-5.3) pg/ml Urine Color Urine Appearance (Clear) Urine pH (5.0-8.0) Ur Specific [place] (1.001-1.035) Urine Protein (Negative) Urine Glucose (UA) (Negative) Urine Ketones (Negative) Urine Blood (Negative) Urine Nitrite (Negative) Urine Bilirubin (Negative) Urine Urobilinogen (<2.0) mg/dL Ur Leukocyte Esterase (Negative) Coronavirus (PCR) Not Detected (Not Detectd) Disposition Clinical Impression: JAMIE (acute kidney injury), Exertional dyspnea Disposition: ADMITTED IP TO THIS HOSP Is patient prescribed a controlled substance at d/c from ED?: No Referrals: Rah Tsai MD [Primary Care Provider] - 1-2 days Time of Disposition: 12:35
[2022-11-25 10:06] LABS: Basophils % (A) 0 %; Eosinophils # (A) 0.2 k/uL (0-0.7); Eosinophils % (A) 3 %; HCT 36.4 % (39.0-53.0); HGB 11.8 gm/dL (13.0-17.5); Lymphocytes # (A) 1.1 k/uL (1.0-4.8); Lymphocytes % (A) 21 %; MCH 30.9 pg (25.0-35.0); MCHC 32.3 g/dL (31.0-37.0); MCV 95.8 fL (80.0-100.0); Mean Platelet Volume 8.4; Monocytes # (A) 0.3 k/uL (0-1.0); Monocytes % (A) 6 %; Neutrophils # (A) 3.6 k/uL (1.3-7.7); Neutrophils % (A) 68 %; Platelet Count 143 k/uL (150-450); RDW 13.8 % (11.5-15.5); WBC 5.2 k/uL (3.8-10.6)
[2022-11-25 10:16] LABS: ALT 115 U/L (4-49); African American GFR (CKD) 62 (>60 ml/min/1.73 sqM); Albumin 4.1 g/dL (3.5-5.0); Anion Gap 14 mmol/L; Blood Urea Nitrogen 47 mg/dL (9-20); Calcium 10.7 mg/dL (8.4-10.2); Carbon Dioxide 12 mmol/L (22-30); Chloride 111 mmol/L (98-107); Glucose 196 mg/dL (74-99); Non-African American GFR(CKD) 54 (>60 ml/min/1.73 sqM); Sodium 137 mmol/L (137-145); Total Bilirubin 0.7 mg/dL (0.2-1.3)
[2022-11-25 10:17] LABS: AST 97 U/L (17-59); Alkaline Phosphatase 108 U/L (38-126); Magnesium 1.6 mg/dL (1.6-2.3); Potassium 5.1 mmol/L (3.5-5.1)
[2022-11-25 10:19] LABS: INR 1.1 (<1.2); Prothrombin Time 11.1 sec (9.0-12.0)
[2022-11-25 10:23] LABS: NT-Pro-B-Type Natriuretic Pept 224 pg/mL
[2022-11-25 10:26] LABS: Appearance,Urine Clear (Clear); Bilirubin,Urine Negative (Negative); Blood,Urine Negative (Negative); Color,Urine Light Yellow; Glucose,Urine (UA) Negative (Negative); Ketones,Urine Negative (Negative); Leukocyte Esterase,Urine Negative (Negative); Nitrite,Urine Negative (Negative); PH, Urine 5.5 (5.0-8.0); Protein,Urine Negative (Negative); Specific Gravity,Urine 1.012 (1.001-1.035); Urobilinogen,Urine <2.0 mg/dL (<2.0)
[2022-11-25 10:31] LABS: T4, Free (Free Thyroxine) 1.03 ng/dL (0.78-2.19)
--- NOTE | 2022-11-25 10:42 | XR ---
EXAMINATION TYPE: XR chest 2V DATE OF EXAM: 11/25/2022 10:33 AM COMPARISON: Chest radiographs from 04/25/2022 TECHNIQUE: XR chest 2V Frontal and lateral views of the chest. CLINICAL INDICATION:Male, 81 years old with history of Weakness; FINDINGS: Lungs/Pleura: There is no evidence of pleural effusion, focal consolidation, or pneumothorax. Pulmonary vascularity: Unremarkable. Heart/mediastinum: Cardiomediastinal silhouette is unremarkable. Musculoskeletal: No acute osseous pathology. Midline sternotomy wires are noted. IMPRESSION: No acute cardiopulmonary disease/process.
[2022-11-25] MEDS ORDERED: ACETAMINOPHEN TAB 325 MG TAB PO PRN (12:48)
[2022-11-25] MEDS ORDERED: NALOXONE 0.4 MG/ML 1 ML VIAL IV PRN (12:48)
[2022-11-25] MEDS: SODIUM CHLORIDE 0.9% 1,000 ML IV SCH (14:07)
--- NOTE | 2022-11-25 14:52 | P.HPIM ---
History of Present Illness This is a pleasant 81 years old male with multiple medical problems as below including Coronary Artery Disease status post CABG, Hypertension, Osteoarthritis ,hx. prostate cancer-dx. 2014-recent elevation in PSA so currently had radiation(last treatment was 2018) here,cataracts, Hx Gout. hx of recent ear infection with vertigo. Arthritis left knee. Patient presents urgently because of exertional fatigue and dyspnea and presynco pe with some chest discomfort. Patient has been complaining of from some fatigue and tiredness especially when he goes up stairs with some exertion over the last 2 months comes and goes and somewhat progressive. But today was really the worst he was just walking to the bathroom and was he starts walking he felt tiredness fatigue shortness of breath and he felt is going to pass out, patient did not pass out, he had to stop after 10 feet because of the significant dyspnea and fatigue. Also he woke up this morning around 7:30 which is usual for him complaining of from some chest discomfort, he says is mild in the middle of the chest nonradiating associated with little dyspnea. Also he had some dry cough. Also he was complaining of from left upper quadrant abdominal discomfort about 4-5/10 in severity that like an ache nonradiating. Both these 2 different pains resolved just before coming to the hospital. He follows up with his PCP at [place], and he is been undergoing workup for hi s symptoms, he had colonoscopy, CT of the chest and nothing was found, his been chest for his parents desire dysfunction and testosterone and they were unremarkable as per patient and his history. He isn't a smoker no alcohol no illicit drugs. He has poor appetite and he lost weight about 20 pounds over the last 6 months from 160 down to 140. 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 He follows up with circle edger and the heads of [facility] cardiology department for his history of CABG 10 years ago. Last time he saw him was 1 week ago and his been told that his EKG and heart sounds were unrema rkable but his circle edger wanted to do nuclear exam to the heart to check blood flow as patient describes. Patient currently denies any symptoms in his urine but no dysuria or urgency. Patient has chronic increased frequency of urination about 6-7 times each night, he follows therefore his history of prostate cancer recently he had radiotherapy to the area and his urologist injected bit Botox to decrease urgency and frequency. He denies any weakness or numbness or confusion Vitals looks stable Urine analysis is negative CBC is showing mild anemia 11.8 and thrombocytopenia 143. INR is normal. Creatinine is elevated at 1.2 which is baseline over the last 4 months Liver enzymes slightly elevated with AST 97 and ALT 115. TSH is slightly elevated at 5.9 but free T4 is 1.0 which is within the reference range as well as T3 at 3.3. Chest x-ray: No acute cardiopulmonary process EKG showing sinus bradycardia at 56 with some PVCs. 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 In the emergency room patient received normal saline and admitted with cardiology consult. Echocardiogram as requested. Review of Systems Review of systems CONSTITUTIONAL: No fever, no malaise, no fatigue. HEENT: No recent visual problems or hearing problems. Denied any sore throat. CARDIOVASCULAR: No orthopnea, PND, no palpitations, no syncope. PULMONARY: No shortness of breath, no cough, no hemoptysis. GASTROINTESTINAL: No diarrhea, no nausea, no vomiting, no abdominal pain. Normoactive bowel sounds. NEUROLOGICAL: No headaches, no weakness, no numbness. HEMATOLOGICAL: Denies any bleeding or petechiae. GENITOURINARY: Denies any burning micturition, frequency, or urgency. MUSCULOSKELETAL/RHEUMATOLOGICAL: Denies any joint pain, swelling, or any muscle pain. ENDOCRINE: Denies any polyuria or polydipsia. Past Medical History Past Medical History: Coronary Artery Disease (CAD), Cancer, Eye Disorder, Hypertension, Osteoarthritis (OA) Additional Past Medical History / Comment(s): hx. prostate cancer-dx. 2013- recent elevation in PSA so currently had radiation(last treatment was 2018) here,cataracts, low cholestral, Hx Gout. hx of recent ear infection with vertigo. Arthritis left knee. History of Any Multi-Drug Resistant Organisms: MRSA Date of last positivie culture/infection: 2008 MDRO Source:: left foot Past Surgical History: Coronary Bypass/CABG, Heart Catheterization, Orthopedic Surgery Additional Past Surgical History / Comment(s): angie shoulder arthroscopy, whipple surgery-benign tumor-had partial pancreatectomy, cataracts removed bilaterally Bypass 2002 Past Anesthesia/Blood Transfusion Reactions: Motion Sickness, Postoperative Nausea & Vomiting (PONV) Additional Past Anesthesia/Blood Transfusion Reaction / Comment(s): No blood tranfusions Past Psychological History: No Psychological Hx Reported Smoking Status: Never smoker Past Alcohol Use History: None Reported Past Drug Use History: None Reported - Past Family History Mother Family Medical History: No Reported History Additional Family Medical History / Comment(s): , natural causes Father Family Medical History: Congestive Heart Failure (CHF) Medications and Allergies Home Medications Medication Instructions Recorded Confirmed Type Aspirin 81 mg PO DAILY 08/23/16 11/25/22 History Atorvastatin [Lipitor] 80 mg PO DAILY 08/23/16 11/25/22 History Finasteride [Proscar] 5 mg PO DAILY 08/23/16 11/25/22 History Losartan [Cozaar] 25 mg PO BID 08/23/16 11/25/22 History Tamsulosin HCl [Flomax] 0.4 mg PO DAILY 08/23/16 11/25/22 History allopurinoL [Zyloprim] 100 mg PO DAILY 08/23/16 11/25/22 History Lipase/Protease/Amylase [Creon Dr 1 capsule PO TID-W/MEALS 07/04/19 11/25/22 History 24,000 Units Capsule] Pyridoxine [Vitamin B-6] 50 mg PO DAILY 07/04/19 11/25/22 History Ipratropium [place] 0.06%Nasal 2 spray EA NOSTRIL BID 04/25/22 11/25/22 History [Atrovent Nasal 0.06%] Sucralfate [Carafate] 1 gm PO HS 04/25/22 11/25/22 History metFORMIN HCL 1,000 mg PO DAILY 04/25/22 11/25/22 History INSULIN ASPART (NovoLOG) [NovoLOG 6 unit SQ AC-BID 11/25/22 11/25/22 History (formulary)] Insulin Glargine [Lantus Vial] 10 unit SQ DAILY 11/25/22 11/25/22 History Metoclopramide [Reglan] 10 mg PO HS 11/25/22 11/25/22 History Otc Sleep-Aid (Unknown Medication 1 tab PO HS 11/25/22 11/25/22 History And Strength) Semaglutide [Ozempic] 0.25 mg SQ SA@1200 11/25/22 11/25/22 History Sleep 3 (Nature's Bounty Sleep Aid) 1 tab PO HS 11/25/22 11/25/22 History Allergies Allergy/AdvReac Type Severity Reaction Status Date / Time clarithromycin [From Biaxin] Allergy Rash/Hives,red Verified 11/25/22 09:19 skin clopidogrel [From Plavix] Allergy Rash/Hives,red Verified 11/25/22 09:19 skin Physical Exam Vitals: Vital Signs Temp Pulse Resp BP Pulse Ox 11/25/22 11:52 62 18 102/59 95 11/25/22 10:19 61 18 103/63 97 11/25/22 09:42 63 18 116/76 11/25/22 09:29 18 11/25/22 09:17 98.5 F 67 20 106/69 97 Intake and Output 11/24/22 11/25/22 11/25/22 22:59 06:59 14:59 Other: Weight 63.503 kg -GENERAL: The patient is alert and oriented x3, not in any acute distress. Thin built with generalized weakness HEENT: Pupils are round and equally reacting to light. EOMI. No scleral icterus. No conjunctival pallor. Normocephalic, atraumatic. No pharyngeal erythema. No thyromegaly. CARDIOVASCULAR: S1 and S2 present. No murmurs, rubs, or gallops. PULMONARY: Chest is clear to auscultation, no wheezing , no crackles. ABDOMEN: Soft, nontender, nondistended, normoactive bowel sounds. No palpable organomegaly. MUSCULOSKELETAL: No joint swelling or deformity. EXTREMITIES: No cyanosis, clubbing, or pedal edema. NEUROLOGICAL: Gross neurological examination did not reveal any focal deficits. SKIN: No rashes. no petechiae. Results CBC & Chem 7: 11/25/22 09:47 11/25/22 09:47 Labs: Abnormal Lab Results - Last 24 Hours (Table) 11/25/22 11/25/22 Range/Units 09:47 09:47 RBC 3.80 L (4.30-5.90) m/uL Hgb 11.8 L (13.0-17.5) gm/dL Hct 36.4 L (39.0-53.0) % Plt Count 143 L (150-450) k/uL Chloride 111 H (98-107) mmol/L Carbon Dioxide 12 L (22-30) mmol/L BUN 47 H (9-20) mg/dL Creatinine 1.26 H (0.66-1.25) mg/dL Glucose 196 H (74-99) mg/dL Calcium 10.7 H (8.4-10.2) mg/dL AST 97 H (17-59) U/L ALT 115 H (4-49) U/L TSH 5.950 H (0.465-4.680) mIU/L Assessment and Plan Assessment: Exertional dyspnea and fatigue, associated with exertional presyncope Transient period of chest discomfort and left upper quadrant pain that is been resolved Loss of weight with low appetite mild transaminitis Mild bicytopenia with anemia and thrombocytopenia moderate to severe caloreis protein malnutrition History of pancreatic cancer status post radiotherapy History of coronary artery disease status post CABG History 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 Continue same treatment. Continue with symptomatic treatment. Resume home medication. Monitor lytes and vitals. DVT and GI prophylaxis. Further recommendations depends on the clinical course of the patient DVT prophylaxis: Subcutaneous heparin GI Prophylaxis: Pepcid PT/OT: Pending Prognosis is guarded
--- NOTE | 2022-11-25 15:48 | US ---
EXAMINATION TYPE: US liver DATE OF EXAM: 11/25/2022 COMPARISON: CT chest abdomen pelvis 03/10/2022 CLINICAL INDICATION: Male, 81 years old with history of mild transaminitis; transaminitis, hx of pneu mobilia. GB resected, patient had whipple 4 years ago TECHNIQUE: Multiple sonographic images of the right upper quadrant are obtained. FINDINGS: EXAM MEASUREMENTS: Liver Length: 14.4 cm Gallbladder Wall: Surgically absent cm CBD: 0.5 cm Right Kidney: 11.9x4.1x5.2 cm OLIVE PICKER NOTES: Pancreas: poorly visualized due to overlying bowel, artifact from liver Liver: pneumobilia again seen CBD: size wnl, pneumobilia Right Kidney: wnl assessment of structures slightly limited due to overlying bowel gas and artifact from pneumobilia in liver Pancreas obscured by overlying bowel gas. Liver demonstrates pneumobilia again. No focal lesion ident ified. Noncirrhotic morphology. Gallbladder is surgically absent. Per book cleaner, negative sonograph ic Alberto sign. Common bile duct within normal size with pneumobilia redemonstrated. Right kidney is unremarkable without evidence for hydronephrosis, nephrolithiasis, or contour deforming solid mass. C ortical medullary differentiation is maintained. IMPRESSION: 1. No acute process. 2. Pneumobilia redemonstrated corresponding to prior CT
[2022-11-25] MEDS: LIPASE 20,000/PROTEASE 63,000/AMYLASE 84,000 PO SCH (17:32)
[2022-11-25] MEDS: INSULIN ASPART (NovoLOG) 100 UNIT/ML VIAL SQ SCH (17:35)
--- NOTE | 2022-11-25 17:55 | CA ---
Transthoracic Echo Report Name: Ravi Izquierdo Age: 81 Gender: M : 1940 Exam Date: 11/25/2022 13:09 Exam Location: [facility] [facility] Ht (in): 69 Wt (lb): 140 Ordering Physician: Reed Dangelo DO Attending/Referring Phys: College Basketball Coach Mo Newman Procedure CPT: Indications: exertional dyspnea Cardiac Hx: Technical Quality: Fair Contrast 1: Total Dose (mL): Contrast 2: Total Dose (mL): MEASUREMENTS (Male / Female) Normal Values 2D ECHO LV Diastolic Diameter PLAX 4.5 cm 4.2 - 5.9 / 3.9 - 5.3 cm LV Systolic Diameter PLAX 3.2 cm IVS Diastolic Thickness 0.9 cm 0.6 - 1.0 / 0.6 - 0.9 cm LVPW Diastolic Thickness 1.0 cm 0.6 - 1.0 / 0.6 - 0.9 cm LV Relative Wall Thickness 0.4 RV Internal Dim ED PLAX 3.1 cm LVOT Diameter 2.4 cm Aortic Root Diameter 3.4 cm LA Systolic Diameter LX 2.3 cm 3.0 - 4.0 / 2.7 - 3.8 cm LV Diastolic Volume MOD BP 54.2 cm??? 67 - 155 / 56 - 104 cm??? LV Systolic Volume MOD BP 29.6 cm??? 22 - 58 / 19 - 49 cm??? LV Ejection Fraction MOD BP 45.3 % >= 55 % LV Cardiac Index MOD BP 883.5 cm???/min???m??? LV Diastolic Volume MOD 4C 58.2 cm??? LV Systolic Volume MOD 4C 29.8 cm??? LV Ejection Fraction MOD 4C 48.8 % LV Cardiac Index MOD 4C 1020.9 cm???/min???m??? LV Diastolic Length 4C 7.6 cm LV Systolic Length 4C 6.4 cm LV Diastolic Volume MOD 2C 43.0 cm??? LV Systolic Volume MOD 2C 25.5 cm??? LV Ejection Fraction MOD 2C 40.6 % LV Cardiac Index MOD 2C 626.6 cm???/min???m??? LV Diastolic Length 2C 6.4 cm LV Systolic Length 2C 5.5 cm LA Volume 37.1 cm??? 18 - 58 / 22 - 52 cm??? Ascending Aorta Diameter 3.1 cm DOPPLER AV Peak Velocity 72.7 cm/s AV Peak Gradient 2.1 mmHg LVOT Peak Velocity 68.2 cm/s LVOT Peak Gradient 1.9 mmHg AV Area Cont Eq pk 4.1 cm??? MV Peak Velocity 77.1 cm/s MV Peak Gradient 2.4 mmHg MV Mean Velocity 36.0 cm/s MV Mean Gradient 0.6 mmHg MV Velocity Time Integral 27.2 cm Mitral E Point Velocity 44.1 cm/s Mitral A Point Velocity 70.9 cm/s Mitral E to A Ratio 0.6 MV Deceleration Time 311.8 ms TR Peak Velocity 137.8 cm/s TR Peak Gradient 7.6 mmHg Right Ventricular Systolic Press 12.6 mmHg PV Peak Velocity 83.5 cm/s PV Peak Gradient 2.8 mmHg FINDINGS Left Ventricle Mildly decreased left ventricular ejection fraction. Left ventricular ejection fraction is estimated at 45-50 %. Right Ventricle Normal right ventricular size. Right Atrium Normal right atrial size. Left Atrium Normal left atrial size. LA volume index= 21ml/m2 Mitral Valve Mitral valve thickened. No MR. Aortic Valve Mild to moderate AV calcification. Tricuspid Valve Structurally normal tricuspid valve. Trace TR. Pulmonic Valve Pulmonic valve not well visualized. Pericardium Normal pericardium. Aorta Normal size aortic root and proximal ascending aorta. CONCLUSIONS Mild LV systolic dysfunction Aortic sclerosis without significant stenosis Previewed by: Dr. Keanu Negron MD (Electronically Signed) Final Date: 25 November 2022 17:54
[2022-11-25] MEDS ORDERED: SLEEP PO SCH (21:00)
[2022-11-25] MEDS: SUCRALFATE 1 GM TAB PO SCH (21:22)
[2022-11-25] MEDS: LOSARTAN 25 MG TAB PO SCH (21:23)
[2022-11-25] MEDS: METOCLOPRAMIDE 10 MG TAB PO SCH (21:23)
--- NOTE | 2022-11-25 22:53 | CONS ---
CONSULTATION HISTORY OF PRESENT ILLNESS: This is an 81-year-old gentleman who has history of coronary artery disease status post prior bypass surgery, insulin-requiring diabetes, hypertension, dyslipidemia, who presents to [facility] complaining of progressively worsening shortness of breath. His shortness of breath has been going on for the last 2 months. He complains of fatigue, tiredness, and shortness of breath. He states that even walking up to the bathroom is making him short of breath. He woke up this morning around 7:30 and had some vague chest discomfort, also had shortness of breath and some upper abdominal discomfort. Due to this, he came to hospital where he has been admitted. He has a primary care physician in [place], [place], sees Dr. Jovana Starkey at [facility] for his CAD and had undergone Whipple surgery at [facility]. Per his narration, he did not have pancreatic cancer, but had a benign tumor that was attached to the pancreas and the bowel at that time for which he underwent surgery. The surgery was done in 2019 and he had lost about 35 pounds after the surgery. Over the last 6 months, he has lost roughly 20 pounds the exact etiology for which is unclear. He was recently seen by his roll form operator who suggested that he undergo a stress Cardiolite study which is currently scheduled for the end of December. The patient has urinary frequency and has prior history of pancreatic cancer. At the time of my evaluation, he appears comfortable at rest, stable hemodynamically. He has had 3 sets of cardiac enzymes that are all within normal limits. His BNP is normal. An EKG shows sinus bradycardia with right bundle-branch block and left posterior fascicular block. An echocardiogram shows mild LV systolic dysfunction. PAST MEDICAL HISTORY: Significant for CAD, status post CABG; history of pancreatic mass, status post surgery; insulin-requiring diabetes. MEDICATIONS: 1. Ozempic. 2. Insulin. 3. Reglan. 4. Carafate. 5. Flomax. 6. Cozaar. 7. Proscar. 8. Lipitor. 9. Zyloprim. ALLERGIES: To Plavix and Biaxin. FAMILY HISTORY: Negative for premature coronary artery disease. SOCIAL HISTORY: Negative for smoking, EtOH abuse, or drug abuse. REVIEW OF SYSTEMS: HEENT: Unremarkable. CARDIAC: As described above. RESPIRATORY: As described above. GI: Negative. GENITOURINARY: Negative. ALLERGY/IMMUNOLOGY: Negative. SKIN: Negative. MUSCULOSKELETAL: Significant for arthritis. PSYCHOSOCIAL: Negative. DERM: Negative. CONSTITUTIONAL: Significant for significant weight loss. PHYSICAL EXAMINATION: GENERAL: Comfortable at rest. VITAL SIGNS: Heart rate is 67 beats per minute, blood pressure is 123/72, respiratory rate is 18, and O2 saturation is 96% on room air. NECK: There is no jugular venous distention. Carotid upstroke is normal. There is no bruit. CHEST: Reveals good air entry bilaterally. HEART: Reveals first and second heart sounds. A systolic murmur at the apex. ABDOMEN: Soft. EXTREMITIES: Did not reveal any edema. LABORATORY DATA: Showed that the BUN is 47, creatinine is 1.2, troponins are negative. Hemoglobin is 11.8, platelet count is 143. Coronavirus is negative. ASSESSMENT: Exertional shortness of breath, history of weight loss, CAD status post CABG, and renal insufficiency. PLAN: The patient's symptomatology does not seem cardiac in origin. He does not have LV systolic dysfunction to explain his shortness of breath. BNP is normal. Significant obstructive CAD seems to be a very unlikely etiology for his progressive symptoms. However, he is already scheduled for a stress test 6 weeks from now. I am going to get it done while he is here and see if he has any significant area of ischemia to explain his symptoms. I am concerned with his weight loss, Ozempic could be contributing to this. Oncology has already been consulted. His shortness of breath, weight loss, and renal insufficiency might all be tied together. MMODL / IJN: [id number] /
[2022-11-26] MEDS: IPRATROPIUM BROMIDE 0.06% NASAL SPRAY (15 ML) EA NOSTRIL SCH ×3 (04:50→23:56)
[2022-11-26] MEDS ORDERED: REGADENOSON 0.4 MG/5 ML SYRINGE IV PRN (06:00)
[2022-11-26] MEDS ORDERED: AMINOPHYLLINE 500 MG/20 ML VIAL IV PRN (06:00)
[2022-11-26 07:15] LABS: ALT 119 U/L (4-49); AST 84 U/L (17-59); African American GFR (CKD) 76 (>60 ml/min/1.73 sqM); Albumin 3.5 g/dL (3.5-5.0); Albumin/Globulin Ratio 1.3; Alkaline Phosphatase 99 U/L (38-126); Anion Gap 10 mmol/L; Blood Urea Nitrogen 43 mg/dL (9-20); Calcium 9.1 mg/dL (8.4-10.2); Carbon Dioxide 13 mmol/L (22-30); Chloride 115 mmol/L (98-107); Globulin 2.6 g/dL; Glucose 91 mg/dL (74-99); Non-African American GFR(CKD) 66 (>60 ml/min/1.73 sqM); Potassium 4.2 mmol/L (3.5-5.1); Sodium 138 mmol/L (137-145); Total Bilirubin 0.4 mg/dL (0.2-1.3); Total Protein 6.1 g/dL (6.3-8.2)
[2022-11-26 07:23] LABS: NT-Pro-B-Type Natriuretic Pept 106 pg/mL
[2022-11-26 07:53] LABS: Glucose,Whole Blood 95 mg/dL (70-110)
[2022-11-26] MEDS: SODIUM CHLORIDE 0.9% 1,000 ML IV SCH (07:58)
--- NOTE | 2022-11-26 09:24 | P.PN ---
Subjective HISTORY OF PRESENT ILLNESS: This is a 81 -year-old male who follows with a engine inspector at the [facility]. Patient has a history of coronary artery disease with previous CABG, diabetes, hypertension, and hyperlipidemia. Patient presented to the hospital with a chief complaint of progressive shortness of breath over the past 2 months. He also had some vague chest discomfort. At the time of examination this morning, he denies chest pain or pressure. He denies shortness of breath. Vital signs are stable. Echocardiogram completed revealing ejection fraction 45-50% with aortic sclerosis without significant stenosis. PHYSICAL EXAM: VITAL SIGNS: Reviewed. GENERAL: Well-developed in no acute distress. NECK: Supple. No JVD or thyromegaly LUNGS: Respirations even and unlabored. Lungs essentially clear to auscultation bilaterally. HEART: Regular rate and rhythm. S1 and S2 heard. Systolic murmur noted. EXTREMITIES: Normal range of motion. No clubbing or cyanosis. Peripheral p ulses intact. No lower extremity edema ASSESSMENT: Progressive shortness of breath, 2 months Coronary artery disease with previous CABG Hypertension Hyperlipidemia Recent weight loss PLAN: 2-D echo obtained and reviewed Continue current cardiac medications Patient to undergo Lexiscan stress test today. If negative, he may be discharged home today from a cardiac standpoint and follow up with his primary engine inspector Nurse practitioner note has been reviewed by physician. Signing provider agrees with the documented findings, assessment, and plan of care. Objective - Vital Signs Vital signs: Vital Signs Temp 98.1 F 11/26/22 07:00 Pulse 66 11/26/22 07:00 Resp 16 11/26/22 07:00 BP 113/64 11/26/22 07:00 Pulse Ox 99 11/26/22 07:00 FiO2 Intake & Output 11/25/22 11/26/22 11/26/22 18:59 06:59 18:59 Output Total 150 Balance -150 Weight 63.503 kg 63.503 kg Output: Urine 150 Other: Voiding Method Urinal # Voids 1 - Labs CBC & Chem 7: 11/25/22 09:47 11/26/22 06:13 Labs: Abnormal Lab Results - Last 24 Hours (Table) 11/25/22 11/25/22 11/25/22 Range/Units 09:47 09:47 09:47 RBC 3.80 L (4.30-5.90) m/uL Hgb 11.8 L (13.0-17.5) gm/dL Hct 36.4 L (39.0-53.0) % Plt Count 143 L (150-450) k/uL Chloride 111 H (98-107) mmol/L Carbon Dioxide 12 L (22-30) mmol/L BUN 47 H (9-20) mg/dL Creatinine 1.26 H (0.66-1.25) mg/dL Glucose 196 H (74-99) mg/dL Hemoglobin A1c 7.4 H (<=6.0) % Calcium 10.7 H (8.4-10.2) mg/dL AST 97 H (17-59) U/L ALT 115 H (4-49) U/L Total Protein (6.3-8.2) g/dL TSH 5.950 H (0.465-4.680) mIU/L 11/26/22 Range/Units 06:13 RBC (4.30-5.90) m/uL Hgb (13.0-17.5) gm/dL Hct (39.0-53.0) % Plt Count (150-450) k/uL Chloride 115 H (98-107) mmol/L Carbon Dioxide 13 L (22-30) mmol/L BUN 43 H (9-20) mg/dL Creatinine (0.66-1.25) mg/dL Glucose (74-99) mg/dL Hemoglobin A1c (<=6.0) % Calcium (8.4-10.2) mg/dL AST 84 H (17-59) U/L ALT 119 H (4-49) U/L Total Protein 6.1 L (6.3-8.2) g/dL TSH (0.465-4.680) mIU/L
[2022-11-26] MEDS: INSULIN ASPART (NovoLOG) 100 UNIT/ML VIAL SQ SCH ×2 (10:47→17:54)
[2022-11-26 10:49] LABS: Glucose,Whole Blood 164 mg/dL (70-110)
--- NOTE | 2022-11-26 10:50 | CA ---
Lexiscan Nuclear Stress Test Report Name: Ravi Izquierdo Exam Date: 11/26/2022 09:01 Exam Location: [facility] Ht (in): 69 Wt (lb): 140 BSA: 1.78 Ordering Phys: Keanu Negron MD Referring Phys: RADHA,, Technologist: David Smith Age: 81 Gender: M : 1940 Procedure CPT: Indications: Reflex order-Stress test ICD-10 Codes: Patient History: Medications: SEE CHART Meds past 24 hrs: Pretest Chest Pain: STRESS TEST Lexiscan Protocol Exercise Duration (min:sec): 02:[address] Depressions (mm): Angina Score: Stone Score: Resting HR (bpm): 66 Peak HR (bpm): 97 Resting BP (mmHg): 128 / 65 Peak BP (mmHg): 120 / 56 MPHR: 140 Target HR: 119 % MPHR: 69 METS: 1.0 Total Dose: Peak Dose: Atropine: Double Product: 71441 BP Response: Stress Termination: PROTOCOL COMPLETE Stress Symptoms: No chest pain or symptoms Stress Summary: ECG ANALYSIS Resting ECG: Sinus rhythm with right bundle branch block Stress ECG: Patient was given intravenous Lexiscan as a protocol did not have chest pain or diagnostic ST segment depression CONCLUSIONS Inconclusive EKG part of the stress test due to baseline EKG abnormalities Cardiac portion of the stress test will be reported separately Dr. Keanu Negron MD (Electronically Signed) Final Date: 26 November 2022 10:50
[2022-11-26] MEDS: INSULIN DETEMIR (LEVEMIR) 100 UNIT/ML SYR SQ SCH (10:52)
[2022-11-26] MEDS: allopurinoL 100 MG TAB PO SCH (10:52)
[2022-11-26] MEDS: FINASTERIDE 5 MG TAB PO SCH (10:53)
[2022-11-26] MEDS: metFORMIN 500 MG TAB PO SCH (10:53)
[2022-11-26] MEDS: TAMSULOSIN 0.4 MG CAP.ER.24H PO SCH (10:53)
[2022-11-26] MEDS: LOSARTAN 25 MG TAB PO SCH ×2 (10:53→22:15)
[2022-11-26] MEDS: PYRIDOXINE 50 MG TAB PO SCH (10:53)
[2022-11-26] MEDS: LIPASE 20,000/PROTEASE 63,000/AMYLASE 84,000 PO SCH ×3 (10:53→17:54)
[2022-11-26] MEDS: ATORVASTATIN 80 MG TAB PO SCH (10:53)
[2022-11-26] MEDS: ASPIRIN 81 MG PO SCH (10:53)
--- NOTE | 2022-11-26 11:05 | P.NPCON ---
History of Present Illness - Reason for Consult acute renal failure - History of Present Illness Patient is an 81-year-old male who has history of coronary artery disease, hypertension, prostatic CA status post radiation therapy. Patient is admitted to the hospital with complaints of increased weakness and fatigue and inability to ambulate. He denies any history of kidney diseases. Serum creatinine was 1.2 mg/dL yesterday and decreased to 1.0 today. There was concern for urine retention. 1 bladder scan yesterday was more than 300 and another one reported was 197. Patient is also noted to be severely acidotic with CO2 of 13 and anion gap of 10. He is maintained on metformin. Urine ketone is negative. Blood sugar was 91 and 196 on admission. Currently maintained on IV fluids. Blood pressure is slightly on the lower side with systolic around 104-1 16 mmHg earlier. Now at 1 34 mmHg. Patient is maintained on ARBs Review of Systems As per HPI Past Medical History Past Medical History: Coronary Artery Disease (CAD), Cancer, Diabetes Mellitus, Eye Disorder, Hypertension, Osteoarthritis (OA) Additional Past Medical History / Comment(s): hx. prostate cancer-dx. 2013- recent elevation in PSA so currently had radiation(last treatment was 2017) here,cataracts, low cholesterol, Hx Gout. hx of recent ear infection with vertigo. Arthritis left knee. Dx with diabetes in April of 2022. History of Any Multi-Drug Resistant Organisms: MRSA Date of last positivie culture/infection: 2008 MDRO Source:: left foot Past Surgical History: Coronary Bypass/CABG, Heart Catheterization, Orthopedic Surgery Additional Past Surgical History / Comment(s): angie shoulder arthroscopy, whipple surgery-benign tumor-had partial pancreatectomy, cataracts removed bilaterally, Bypass 2002 X4 Past Anesthesia/Blood Transfusion Reactions: Motion Sickness, Postoperative Nausea & Vomiting (PONV) Additional Past Anesthesia/Blood Transfusion Reaction / Comment(s): No blood tranfusions Past Psychological History: No Psychological Hx Reported Smoking Status: Never smoker Past Alcohol Use History: None Reported Additional Past Alcohol Use History / Comment(s): occasional wine. no liquor or beer Past Drug Use History: None Reported - Past Family History Mother Family Medical History: No Reported History Additional Family Medical History / Comment(s): , natural causes Father Family Medical History: Congestive Heart Failure (CHF) Medications and Allergies Home Medications Medication Instructions Recorded Confirmed Type Aspirin 81 mg PO DAILY 08/23/16 11/25/22 History Atorvastatin [Lipitor] 80 mg PO DAILY 08/23/16 11/25/22 History Finasteride [Proscar] 5 mg PO DAILY 08/23/16 11/25/22 History Losartan [Cozaar] 25 mg PO BID 08/23/16 11/25/22 History Tamsulosin HCl [Flomax] 0.4 mg PO DAILY 08/23/16 11/25/22 History allopurinoL [Zyloprim] 100 mg PO DAILY 08/23/16 11/25/22 History Lipase/Protease/Amylase [Creon Dr 1 capsule PO TID-W/MEALS 07/04/19 11/25/22 History 24,000 Units Capsule] Pyridoxine [Vitamin B-6] 50 mg PO DAILY 07/04/19 11/25/22 History Ipratropium [place] 0.06%Nasal 2 spray EA NOSTRIL BID 04/25/22 11/25/22 History [Atrovent Nasal 0.06%] Sucralfate [Carafate] 1 gm PO HS 04/25/22 11/25/22 History metFORMIN HCL 1,000 mg PO DAILY 04/25/22 11/25/22 History INSULIN ASPART (NovoLOG) [NovoLOG 6 unit SQ AC-BID 11/25/22 11/25/22 History (formulary)] Insulin Glargine [Lantus Vial] 10 unit SQ DAILY 11/25/22 11/25/22 History Metoclopramide [Reglan] 10 mg PO HS 11/25/22 11/25/22 History Otc Sleep-Aid (Unknown Medication 1 tab PO HS 11/25/22 11/25/22 History And Strength) Semaglutide [Ozempic] 0.25 mg SQ SA@1200 11/25/22 11/25/22 History Sleep 3 (Nature's Bounty Sleep Aid) 1 tab PO HS 11/25/22 11/25/22 History Allergies Allergy/AdvReac Type Severity Reaction Status Date / Time clarithromycin [From Biaxin] Allergy Rash/Hives,red Verified 11/25/22 09:19 skin clopidogrel [From Plavix] Allergy Rash/Hives,red Verified 11/25/22 09:19 skin Physical Exam Vitals: Vital Signs Temp Pulse Pulse Resp BP BP BP 11/26/22 07:00 98.1 F 66 16 113/64 11/26/22 00:01 97.9 F 61 15 134/67 11/25/22 23:17 71 18 122/60 11/25/22 22:00 65 18 115/66 11/25/22 21:00 65 18 116/61 11/25/22 20:00 67 18 118/77 11/25/22 19:00 70 18 127/66 11/25/22 16:34 67 18 123/73 11/25/22 11:52 62 18 102/59 Pulse Ox 11/26/22 07:00 99 11/26/22 00:01 100 11/25/22 23:17 98 11/25/22 22:00 98 11/25/22 21:00 98 11/25/22 20:00 98 11/25/22 19:00 98 11/25/22 16:34 96 11/25/22 11:52 95 Intake and Output 11/25/22 11/26/22 11/26/22 22:59 06:59 14:59 Output Total 150 Balance -150 Output: Urine 150 Other: Voiding Method Urinal # Voids 1 Weight 63.503 kg Patient is awake, comfortable, no acute distress Examination of the heart S1 and S2 Examination of the lungs bilateral breath sounds are heard Abdomen is soft nontender Examination of the lower extremities shows no edema NEWS VIDEOGRAPHER exam grossly intact Results - Lab Results Most recent lab results Calcium 9.1 mg/dL (8.4-10.2) 11/26/22 06:13 Magnesium 1.6 mg/dL (1.6-2.3) 11/25/22 09:47 11/25/22 09:47 11/26/22 06:13 Assessment and Plan Assessment: 1. Acute kidney injury associated with volume depletion currently improved with IV hydration. UA is completely benign. 2. Non-gap metabolic acidosis with normal lactic acid level most likely associated to history of Whipple's procedure and partial pancreatectomy as this appears chronic and was noted also in July 2022 3. Urine retention with most recent bladder scan showing 197 mL post void. We will continue to monitor 4. Coronary artery disease with previous history of CABG 5. Hypertension currently maintained on angiotensin receptor blockers 6. Diabetes maintained on metformin and insulin Plan: Change IV fluids to IV bicarb Continue with Flomax and finasteride Continue to monitor post void residuals Repeat labs in a.m. Continue with Glucophage. Thank you for this consultation. We will continue to follow the patient with you during his hospitalization.
[2022-11-26 11:07] LABS: Basophils # (A) 0.03 X 10*3/uL (0.00-0.10); Basophils % (A) 0.5 %; Eosinophils # (A) 0.16 X 10*3/uL (0.04-0.35); Eosinophils % (A) 2.8 %; HCT 34.7 % (39.6-50.0); HGB 11.1 d/dL (13.0-17.0); Lymphocytes # (A) 1.83 X 10*3/uL (0.90-5.00); Lymphocytes % (A) 31.8 %; MCH 30.3 pg (27.0-32.0); MCV 94.8 FL (80.0-97.0); Monocytes # (A) 0.43 X 10*3/uL (0.20-1.00); Monocytes % (A) 7.5 %; NRBC Per 100 WBC 0 X 10*3/uL (0.00-0.01); Neutrophils % (A) 57.2 %; Platelet Count 159 X 10*3/uL (140-440); RBC 3.66 X 10*6/uL (4.40-5.60); RDW 13.9 % (11.5-14.5); WBC 5.76 X 10*3/uL (4.50-10.00)
[2022-11-26] MEDS: DEXTROSE 5% IN WATER 1,000 ML with SODIUM BICARB (1 MEQ/ML) 150 ML IV SCH ×2 (11:30→23:32)
[2022-11-26 13:31] VITALS: BMI 20.7
--- NOTE | 2022-11-26 13:35 | NM ---
EXAMINATION TYPE: NM stress lexiscan cardiolite DATE OF EXAM: 11/26/2022 COMPARISON: NONE HISTORY: Chest pain short of breath fatigue TECHNIQUE: After the intravenous administration of 9.7 mCi Tc 99m Sestamibi - Cardiolite resting SPE CT images acquired 45 minutes post injection. At peak stress 24.2 mCi Tc 99m Sestamibi - Stress images obtained 55 minutes post injection The patient was stressed with 0.4mg Lexiscan. FINDINGS: There is a defect along the inferior wall extending from the cardiac apex to at least the midportion of the inferior wall. Some artifact from the adjacent stomach causes some limitation of the areas ahsan ser to the base of the heart. This area is better visualized on the resting images with more normal r adiotracer accumulation. Correlate for EKG changes. Polar maps correlate with this finding suggestive of a moderately sized reversible perfusion defect. Wall motion is normal Ejection fraction is calculated to be 56 %. IMPRESSION: 1. Stress-induced ischemic change along the inferior wall extending from the apex towards the base.
[2022-11-26] MEDS ORDERED: ALPRAZolam 0.5 MG TAB PO PRN (14:40)
[2022-11-26] MEDS ORDERED: ALPRAZolam 0.25 MG TAB PO PRN (14:40)
[2022-11-26] MEDS ORDERED: NITROGLYCERIN SL TABS 0.4 MG TAB SUBLINGUAL PRN (14:40)
--- NOTE | 2022-11-26 16:20 | P.CONS ---
History of Present Illness - Reason for Consult Consult date: 11/26/22 weight loss, hx of cancer Requesting physician: Skip E Sheet - Chief Complaint weakness, fatigue, lightheadedness - History of Present Illness Patient is an 81-year-old male with a significant history of hypertension, diabetes, CABG, prostate cancer and basal cell carcinoma. He also underwent a whipple procedure, bowel resection and cholecystectomy in 2019 due to tumor of the pancreas/small intestine. Tumor was found to be benign. We were consulted due to history of cancer and unintentional weight loss. Patient reports he was diagnosed with prostate cancer in 2013 and was under observation with urology until his PSA levels began to elevate at which time he underwent RT with Dr. Carrasco in 2019 receiving 44 fractions. He also reports history of basal cell carcinoma approx 8 years ago and had Mohs surgery. Patient presented to the emergency room with complaints of profound fatigue, generalized weakness and lightheadedness. He reports he felt like he was going to pass out causing him to present to the ER for further evaluation. He also reports approximately 25 pound weight loss over the last 6 months and persisting fatigue. Patient reports most days he has a good appetite so he does not understand why he is losing weight. Upon review of chart patients weight has decreased 8.5 lbs since February 2022. Patient has been following up with his family physician for the same and has been undergoing work up. PSA 11/16/22 WNL. CEA 7.3. Iron studies last month revealed ferritin 164, iron saturation 44%. Thyroid studies reveal subclinical hypothyroidism. Patient reports his testosterone level was checked and was normal. He underwent colonoscopy and EGD [address] An. He reports there were 6 polyps removed, biopsies were benign. CT CAP on 03/10/22 revealed postsurgical changes in the abdomen without evidence for acute abdominothoracic processes. Post surgical changes with gallbladder removal similar pneumobilia and dilation of the main pancreatic duct. And prostatamegaly. Upon admission CBC revealed WBC 5.7, hemoglobin 11.1, platelets 159,000. On trending labs anemia has been noted to be in the 11-12 range since January 2021. Iron deficiency anemia noted in 2018. LFTS have been elevated as well since 2019. Currently AST 84, ALT 119. Bilirubin WNL at 0.7. B12 and folate WNL. Liver ultrasound obtained revealing no acute process. Chest x-ray revealed no acute cardiopulmonary processes. Cardiology has been consulted. Echocardiogram obtained revealing mild left ventricular systolic dysfunction with EF of 45-50%. Stress test pending. Vital signs stable. Patient is afebrile, SPO2 99% on room air. Review of Systems 10 point ROS is negative except as stated in HPI Past Medical History Past Medical History: Coronary Artery Disease (CAD), Cancer, Diabetes Mellitus, Eye Disorder, Hypertension, Osteoarthritis (OA) Additional Past Medical History / Comment(s): hx. prostate cancer-dx. 2013- recent elevation in PSA so currently had radiation(last treatment was 2017) here,cataracts, low cholesterol, Hx Gout. hx of recent ear infection with vertigo. Arthritis left knee. Dx with diabetes in April of 2022. History of Any Multi-Drug Resistant Organisms: MRSA Year Discovered:: 2008 MDRO Source:: left foot Past Surgical History: Coronary Bypass/CABG, Heart Catheterization, Orthopedic Surgery Additional Past Surgical History / Comment(s): angie shoulder arthroscopy, whipple surgery-benign tumor-had partial pancreatectomy, cataracts removed bilaterally, Bypass 2002 X4 Past Anesthesia/Blood Transfusion Reactions: Motion Sickness, Postoperative Nausea & Vomiting (PONV) Additional Past Anesthesia/Blood Transfusion Reaction / Comm: No blood tranfu sions Past Psychological History: No Psychological Hx Reported Smoking Status: Never smoker Past Alcohol Use History: None Reported Additional Past Alcohol Use History / Comment(s): occasional wine. no liquor or beer Past Drug Use History: None Reported - Past Family History Mother Family Medical History: No Reported History Additional Family Medical History / Comment(s): , natural causes Father Family Medical History: Congestive Heart Failure (CHF) Medications and Allergies Home Medications Medication Instructions Recorded Confirmed Type Aspirin 81 mg PO DAILY 08/23/16 11/25/22 History Atorvastatin [Lipitor] 80 mg PO DAILY 08/23/16 11/25/22 History Finasteride [Proscar] 5 mg PO DAILY 08/23/16 11/25/22 History Losartan [Cozaar] 25 mg PO BID 08/23/16 11/25/22 History Tamsulosin HCl [Flomax] 0.4 mg PO DAILY 08/23/16 11/25/22 History allopurinoL [Zyloprim] 100 mg PO DAILY 08/23/16 11/25/22 History Lipase/Protease/Amylase [Creon Dr 1 capsule PO TID-W/MEALS 07/04/19 11/25/22 History 24,000 Units Capsule] Pyridoxine [Vitamin B-6] 50 mg PO DAILY 07/04/19 11/25/22 History Ipratropium [place] 0.06%Nasal 2 spray EA NOSTRIL BID 04/25/22 11/25/22 History [Atrovent Nasal 0.06%] Sucralfate [Carafate] 1 gm PO HS 04/25/22 11/25/22 History metFORMIN HCL 1,000 mg PO DAILY 04/25/22 11/25/22 History INSULIN ASPART (NovoLOG) [NovoLOG 6 unit SQ AC-BID 11/25/22 11/25/22 History (formulary)] Insulin Glargine [Lantus Vial] 10 unit SQ DAILY 11/25/22 11/25/22 History Metoclopramide [Reglan] 10 mg PO HS 11/25/22 11/25/22 History Otc Sleep-Aid (Unknown Medication 1 tab PO HS 11/25/22 11/25/22 History And Strength) Semaglutide [Ozempic] 0.25 mg SQ SA@1200 11/25/22 11/25/22 History Sleep 3 (Nature's Bounty Sleep Aid) 1 tab PO HS 11/25/22 11/25/22 History Allergies Allergy/AdvReac Type Severity Reaction Status Date / Time clarithromycin [From Biaxin] Allergy Rash/Hives,red Verified 11/25/22 09:19 skin clopidogrel [From Plavix] Allergy Rash/Hives,red Verified 11/25/22 09:19 skin Physical Exam Vitals: Vital Signs Temp Pulse Pulse Resp BP BP BP 11/26/22 15:00 97.6 F 65 16 118/76 11/26/22 10:45 97.7 F 60 16 123/70 11/26/22 07:00 98.1 F 66 16 113/64 11/26/22 00:01 97.9 F 61 15 134/67 11/25/22 23:17 71 18 122/60 11/25/22 22:00 65 18 115/66 11/25/22 21:00 65 18 116/61 11/25/22 20:00 67 18 118/77 11/25/22 19:00 70 18 127/66 11/25/22 16:34 67 18 123/73 Pulse Ox 11/26/22 15:00 100 11/26/22 10:45 99 11/26/22 07:00 99 11/26/22 00:01 100 11/25/22 23:17 98 11/25/22 22:00 98 11/25/22 21:00 98 11/25/22 20:00 98 11/25/22 19:00 98 11/25/22 16:34 96 Intake and Output 11/26/22 11/26/22 11/26/22 06:59 14:59 22:59 Intake Total 828 Output Total 150 350 Balance -150 -350 828 Intake: Oral 828 Output: Urine 150 350 Other: Voiding Method Urinal Urinal # Voids 1 300 Weight 63.503 kg 63.503 kg - Constitutional General appearance: average body habitus, no acute distress - EENT Eyes: anicteric sclerae, EOMI ENT: hearing grossly normal - Neck Neck: no lymphadenopathy - Respiratory Respiratory: bilateral: CTA - Cardiovascular Rhythm: regular Heart sounds: normal: S1, S2 Abnormal Heart Sounds: no systolic murmur, no diastolic murmur, no rub, no S3 Gallop, no S4 Gallop, no click, no other leg Peripheral Edema: bilateral: None - Gastrointestinal General gastrointestinal: no distended, soft, no tenderness - Integumentary Integumentary: no cyanotic, no jaundiced - Neurologic Neurologic: CNII-XII intact - Musculoskeletal Musculoskeletal: strength equal bilaterally - Psychiatric Psychiatric: A&O x's 3, appropriate affect, intact judgment & insight Results CBC & Chem 7: 11/26/22 06:13 11/26/22 06:13 Labs: Abnormal Lab Results - Last 24 Hours (Table) 11/25/22 11/26/22 11/26/22 Range/Units 09:47 06:13 06:13 RBC 3.66 L (4.40-5.60) X 10*6/uL Hgb 11.1 L (13.0-17.0) d/dL Hct 34.7 L (39.6-50.0) % Chloride 115 H (98-107) mmol/L Carbon Dioxide 13 L (22-30) mmol/L BUN 43 H (9-20) mg/dL POC Glucose (mg/dL) (70-110) mg/dL Hemoglobin A1c 7.4 H (<=6.0) % AST 84 H (17-59) U/L ALT 119 H (4-49) U/L Total Protein 6.1 L (6.3-8.2) g/dL 11/26/22 Range/Units 10:48 RBC (4.40-5.60) X 10*6/uL Hgb (13.0-17.0) d/dL Hct (39.6-50.0) % Chloride (98-107) mmol/L Carbon Dioxide (22-30) mmol/L BUN (9-20) mg/dL POC Glucose (mg/dL) 164 H (70-110) mg/dL Hemoglobin A1c (<=6.0) % AST (17-59) U/L ALT (4-49) U/L Total Protein (6.3-8.2) g/dL Comments: ECHO reviewed Chest x-ray: report reviewed CT scan - abdomen: report reviewed CT scan - chest: report reviewed CT scan - pelvis: report reviewed US - abdomen: report reviewed Assessment and Plan (1) Unintentional weight loss Current Visit: Yes Status: Acute Priority: Medium Code(s): R63.4 - AB NORMAL WEIGHT LOSS SNOMED Code(s): 898395139 (2) History of prostate cancer Current Visit: Yes Status: Acute Priority: Medium Code(s): Z85.46 - PERSO NAL HISTORY OF MALIGNANT NEOPLASM OF PROSTATE SNOMED Code(s): 089935748 (3) Anemia Current Visit: Yes Status: Acute Priority: Medium Code(s): D64.9 - ANEMIA, UNSPECIFIED SNOMED Code(s): 532082217 Plan: History prostate cancer/basal cell carcinoma: -Dx 2013, was under observation followed by 44 fractions of RT in 2019. PSA 11/16/22 WNL -S/p Mohs surgery in 2014 for basal cell carcinoma of scalp -He also underwent a whipple procedure, bowel resection and cholecystectomy in 2019 due to tumor of the pancreas/small intestine. Tumor was found to be benign. Unintentional weight loss: -Reporting constitutional symptoms of 25 lb weight loss over 6 months and profound fatigue -He has been undergoing work up with PCP for same. So far work up negative -He underwent colonoscopy and EGD [address] An. He reports there were 6 polyps removed, biopsies were benign. CT CAP on 03/10/22 revealed postsurgical changes in the abdomen without evidence for acute abdominothoracic processes. Post surgical changes with gallbladder removal similar pneumobilia and dilation of the main pancreatic duct. And prostatamegaly. -CXR and Liver US revealed no acute processes -Will repeat CT CAP -Paraproteinemia workup ordered Anemia: -Upon admission CBC revealed normocytic normochromic anemia with hemoglobin 11.1. Upon trending labs hemoglobin has been in the 11-12 range since 2020. -Iron studies last month revealed ferritin 164, iron saturation 44%. B12 and folate WNL -Will reorder anemia workup as well r/o hemolysis attests: I have seen and examined pt, performed H&P, developed impression and plan of care. Discussed with dictator. Agree with documentation, dictated as a scribe. Time with Patient: Greater than 30
[2022-11-26 17:25] LABS: Reticulocyte % 1.8 % (0.5-2.0)
[2022-11-26 17:37] LABS: Glucose,Whole Blood 258 mg/dL (70-110)
[2022-11-26] MEDS ORDERED: CAFFEINE CITRATE 60 MG/3 ML VIAL IV PRN (19:12)
[2022-11-26 20:30] LABS: Glucose,Whole Blood 180 mg/dL (70-110)
[2022-11-26] MEDS: SUCRALFATE 1 GM TAB PO SCH (22:15)
[2022-11-26] MEDS: METOCLOPRAMIDE 10 MG TAB PO SCH (22:15)
[2022-11-26 22:51] LABS: Protein, Total 6.2 d/dL (6.2-8.2)
[2022-11-27 01:00] LABS: % Iron Saturation 26.94 (15.00-50.00)
[2022-11-27 06:16] LABS: Glucose,Whole Blood 166 mg/dL (70-110)
[2022-11-27] MEDS ORDERED: HEPARIN SODIUM,PORCINE (1 ML) 2,500 UNIT in SODIUM CHLORIDE 0.9% 250 ML IRRIGATION PRN (07:00)
[2022-11-27] MEDS ORDERED: HEPARIN SODIUM,PORCINE 10,000 UNIT in SODIUM CHLORIDE 0.9% 1,000 ML IRRIGATION PRN (07:00)
[2022-11-27] MEDS: INSULIN DETEMIR (LEVEMIR) 100 UNIT/ML SYR SQ SCH (08:28)
[2022-11-27] MEDS: metFORMIN 500 MG TAB PO SCH (08:28)
[2022-11-27] MEDS: PYRIDOXINE 50 MG TAB PO SCH (08:28)
[2022-11-27] MEDS: TAMSULOSIN 0.4 MG CAP.ER.24H PO SCH ×2 (08:28→21:29)
[2022-11-27] MEDS: allopurinoL 100 MG TAB PO SCH (08:28)
[2022-11-27] MEDS: LOSARTAN 25 MG TAB PO SCH ×2 (08:28→21:29)
[2022-11-27] MEDS: ATORVASTATIN 80 MG TAB PO SCH (08:28)
[2022-11-27] MEDS: LIPASE 20,000/PROTEASE 63,000/AMYLASE 84,000 PO SCH ×3 (08:28→18:00)
[2022-11-27] MEDS: ASPIRIN 81 MG PO SCH (08:28)
[2022-11-27] MEDS: FINASTERIDE 5 MG TAB PO SCH (08:28)
[2022-11-27] MEDS: IPRATROPIUM BROMIDE 0.06% NASAL SPRAY (15 ML) EA NOSTRIL SCH ×2 (08:29→21:32)
[2022-11-27] MEDS: INSULIN ASPART (NovoLOG) 100 UNIT/ML VIAL SQ SCH ×2 (08:29→18:00)
--- NOTE | 2022-11-27 08:57 | P.PN ---
Subjective Patient is seen in follow-up for acute kidney injury. Creatinine 1.07 yesterday. No vomiting or diarrhea. Has been voiding. Blood pressure stable. Hasn't ambulated today. Vital signs are stable. General: No acute distress. HEENT: Head exam is unremarkable. LUNGS: No audible rhonchi or wheezes. HEART: Rate and Rhythm are regular. ABDOMEN: Nontender. EXTREMITITES: No edema. Objective - Vital Signs Vital signs: Vital Signs Temp 98.3 F 11/27/22 07:00 Pulse 72 11/27/22 07:00 Resp 16 11/27/22 07:00 BP 126/74 11/27/22 07:00 Pulse Ox 98 11/27/22 07:00 FiO2 Intake & Output 11/26/22 11/27/22 11/27/22 18:59 06:59 18:59 Intake Total 1065 Output Total 850 650 Balance 215 -650 Weight 63.503 kg Intake: Oral 1065 Output: Urine 650 650 Post Void Residual 200 Other: Voiding Method Urinal Urinal # Voids 1 # Bowel Movements 1 - Labs CBC & Chem 7: 11/26/22 06:13 11/26/22 06:13 Labs: Abnormal Lab Results - Last 24 Hours (Table) 11/26/22 11/26/22 11/26/22 Range/Units 06:13 10:48 17:03 RBC 3.66 L (4.40-5.60) X 10*6/uL Hgb 11.1 L (13.0-17.0) d/dL Hct 34.7 L (39.6-50.0) % POC Glucose (mg/dL) 164 H (70-110) mg/dL Transferrin 175.0 L (204.0-354.0) mg/dL 11/26/22 11/26/22 11/27/22 Range/Units 17:35 20:29 06:14 RBC (4.40-5.60) X 10*6/uL Hgb (13.0-17.0) d/dL Hct (39.6-50.0) % POC Glucose (mg/dL) 258 H 180 H 166 H (70-110) mg/dL Transferrin (204.0-354.0) mg/dL Assessment and Plan Plan: Assessment: 1. Acute kidney injury mostly prerenal secondary to hypovolemia. Creatinine 1.26 on admission and down to 1.07 yesterday. UA benign. 2. Metabolic acidosis secondary to IV fluids as well as associated with history of proposed procedure and partial pancreatectomy. Also on metformin. 3. Coronary artery disease status post CABG. 4. Diabetes mellitus. 5. Benign hypertension. Stable. 6. Abnormal stress test. Cardiology following. Plan: Maintain bicarb drip. Encouraged oral intake. Continue to monitor renal function and urine output. Morning labs pending. Follow-up CAT scan.
--- NOTE | 2022-11-27 09:45 | P.PN ---
Subjective Progress Note Date: 11/27/22 Principal diagnosis: Chest pain The patient is an 81-year-old gentleman with CAD and status post CABG at the [facility] as well as hypertension and dyslipidemia was admitted to the hospital with chest pain and shortness of breath and he underwent a stress test came in to be abnormal. November 272022 The patient was seen and evaluated this morning. He is asymptomatic at this point. The stress test showed an inferior ischemia. The echo showed mildly impaired LV function. The plan is to proceed with a heart catheterization this coming Tuesday. The examination is remarkable for regular rhythm with a soft systolic murmur at right and left upper sternal border. Assessment Chest pain and shortness of breath CAD status post CABG Abnormal myocardial perfusion imaging stress test Multiple comorbid conditions Plan Proceed with coronary angiogram this coming Tuesday Objective - Vital Signs Vital signs: Vital Signs Temp 98.3 F 11/27/22 07:00 Pulse 72 11/27/22 07:00 Resp 16 11/27/22 07:00 BP 126/74 11/27/22 07:00 Pulse Ox 98 11/27/22 07:00 FiO2 Intake & Output 11/26/22 11/27/22 11/27/22 18:59 06:59 18:59 Intake Total 1065 Output Total 850 650 Balance 215 -650 Weight 63.503 kg Intake: Oral 1065 Output: Urine 650 650 Post Void Residual 200 Other: Voiding Method Urinal Urinal # Voids 1 # Bowel Movements 1 - Labs CBC & Chem 7: 11/26/22 06:13 11/26/22 06:13 Labs: Abnormal Lab Results - Last 24 Hours (Table) 11/26/22 11/26/22 11/26/22 Range/Units 06:13 10:48 17:03 RBC 3.66 L (4.40-5.60) X 10*6/uL Hgb 11.1 L (13.0-17.0) d/dL Hct 34.7 L (39.6-50.0) % POC Glucose (mg/dL) 164 H (70-110) mg/dL Transferrin 175.0 L (204.0-354.0) mg/dL 11/26/22 11/26/22 11/27/22 Range/Units 17:35 20:29 06:14 RBC (4.40-5.60) X 10*6/uL Hgb (13.0-17.0) d/dL Hct (39.6-50.0) % POC Glucose (mg/dL) 258 H 180 H 166 H (70-110) mg/dL Transferrin (204.0-354.0) mg/dL
[2022-11-27] MEDS ORDERED: NON FORMULARY DRUG (Semaglutide [Ozempic] 0.25 MG/0.2 ML Each) SQ SCH (12:00)
[2022-11-27 12:28] LABS: Glucose,Whole Blood 201 mg/dL (70-110)
[2022-11-27] MEDS: DEXTROSE 5% IN WATER 1,000 ML with SODIUM BICARB (1 MEQ/ML) 150 ML IV SCH ×2 (13:34→23:28)
--- NOTE | 2022-11-27 13:59 | P.PN ---
Subjective Progress Note Date: 11/27/22 81 years old male with multiple medical problems as below including Coronary Artery Disease status post CABG, Hypertension, Osteoarthritis ,hx. prostate cancer-dx. 2014-recent elevation in PSA so currently had radiation(last treatment was 2018) here,cataracts, Hx Gout. hx of recent ear infection with herb tigo. Arthritis left knee. 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 He follows up with admissions evaluator and the heads of [facility] cardiology department for his history of CABG 10 years ago. L ast time he saw him was 1 week ago and his been told that his EKG and heart sounds were unremarkable but his admissions evaluator wanted to do nuclear exam to the heart to check blood flow as patient describes. Patient has chronic increased frequency of urination about 6-7 times each night, he follows therefore his history of prostate cancer recently he had radiotherapy to the area and his urologist injected bit Botox to decrease urgency and frequency. CBC is showing mild anemia 11.8 and thrombocytopenia 143. INR is normal. Creatinine is elevated at 1.2 which is baseline over the last 4 months Liver enzymes slightly elevated with AST 97 and ALT 115. TSH is slightly elevated at 5.9 but free T4 is 1.0 which is within the reference range as well as T3 at 3.3. Chest x-ray: No acute cardiopulmonary process EKG showing sinus bradycardia at 56 with some PVCs. 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 11/27/2022 : Patient denies of any overnight events, seen by cardiology, continue patient on IV heparin, planned for cardiac catheterization Objective - Vital Signs Vital signs: Vital Signs Temp 98.3 F 11/27/22 07:00 Pulse 72 11/27/22 07:00 Resp 16 11/27/22 08:00 BP 126/74 11/27/22 07:00 Pulse Ox 98 11/27/22 07:00 FiO2 Intake & Output 11/26/22 11/27/22 11/27/22 18:59 06:59 18:59 Intake Total 1065 1009 Output Total 850 650 Balance 215 -650 1009 Weight 63.503 kg Intake: Oral 1065 1009 Output: Urine 650 650 Post Void Residual 200 Other: Voiding Method Urinal Urinal # Voids 1 # Bowel Movements 1 - Exam PHYSICAL EXAMINATION: GENERAL: The patient is alert and oriented x3, not in any acute distress. Well developed, well nourished. HEENT: Pupils are round and equally reacting to light. EOMI. No scleral icterus. No conjunctival pallor. Normocephalic, atraumatic. No pharyngeal erythema. No thyromegaly. CARDIOVASCULAR: S1 and S2 present. No murmurs, rubs, or gallops. PULMONARY: Chest is clear to auscultation, no wheezing or crackles. ABDOMEN: Soft, nontender, nondistended, normoactive bowel sounds. No palpable organomegaly. MUSCULOSKELETAL: No joint swelling or deformity. EXTREMITIES: No cyanosis, clubbing, or pedal edema. NEUROLOGICAL: Gross neurological examination did not reveal any focal deficits. SKIN: No rashes. - Labs CBC & Chem 7: 11/26/22 06:13 11/26/22 06:13 Labs: Abnormal Lab Results - Last 24 Hours (Table) 11/26/22 11/26/22 11/26/22 Range/Units 17:03 17:35 20:29 POC Glucose (mg/dL) 258 H 180 H (70-110) mg/dL Transferrin 175.0 L (204.0-354.0) mg/dL 11/27/22 11/27/22 Range/Units 06:14 12:27 POC Glucose (mg/dL) 166 H 201 H (70-110) mg/dL Transferrin (204.0-354.0) mg/dL Assessment and Plan Assessment: Assessment and plan * Coronary artery disease with history of CABG, shortness of breath angina equivalent * Hypertension * Hyperlipidemia * Diabetes mellitus type 2 * History of prostate cancer and basal cell carcinoma * Unintentional weight loss * Consult obtained from cardiology, nephrology * Prem had abnormal stress test on 11/26, continue IV heparin * Accu-Cheks before meals at bedtime, continue patient on metformin, continue sliding scale insulin * Continue patient on Flomax twice a day, continue bladder management protocol * Status is full code * CT abdomen and pelvis pending
[2022-11-27 17:22] LABS: Glucose,Whole Blood 217 mg/dL (70-110)
[2022-11-27 18:18] LABS: African American GFR (CKD) >90 (>60 ml/min/1.73 sqM); Anion Gap 10 mmol/L; Blood Urea Nitrogen 24 mg/dL (9-20); Calcium 8.7 mg/dL (8.4-10.2); Carbon Dioxide 23 mmol/L (22-30); Chloride 104 mmol/L (98-107); Glucose 245 mg/dL (74-99); Magnesium 1.6 mg/dL (1.6-2.3); Non-African American GFR(CKD) 87 (>60 ml/min/1.73 sqM); Potassium 3.9 mmol/L (3.5-5.1); Sodium 137 mmol/L (137-145)
[2022-11-27 21:26] LABS: Glucose,Whole Blood 142 mg/dL (70-110)
[2022-11-27] MEDS: SUCRALFATE 1 GM TAB PO SCH (21:29)
[2022-11-27] MEDS: METOCLOPRAMIDE 10 MG TAB PO SCH (21:29)
[2022-11-28 05:59] LABS: Glucose,Whole Blood 150 mg/dL (70-110)
[2022-11-28] MEDS: DEXTROSE 5% IN WATER 1,000 ML with SODIUM BICARB (1 MEQ/ML) 150 ML IV SCH (06:09)
[2022-11-28] MEDS: metFORMIN 500 MG TAB PO SCH (08:17)
[2022-11-28] MEDS: allopurinoL 100 MG TAB PO SCH (08:17)
[2022-11-28] MEDS: LIPASE 20,000/PROTEASE 63,000/AMYLASE 84,000 PO SCH ×3 (08:17→17:35)
[2022-11-28] MEDS: LOSARTAN 25 MG TAB PO SCH ×2 (08:17→20:43)
[2022-11-28] MEDS: FINASTERIDE 5 MG TAB PO SCH (08:17)
[2022-11-28] MEDS: ASPIRIN 81 MG PO SCH (08:17)
[2022-11-28] MEDS: ATORVASTATIN 80 MG TAB PO SCH (08:18)
[2022-11-28] MEDS: IPRATROPIUM BROMIDE 0.06% NASAL SPRAY (15 ML) EA NOSTRIL SCH ×2 (08:18→20:43)
[2022-11-28] MEDS: INSULIN DETEMIR (LEVEMIR) 100 UNIT/ML SYR SQ SCH (08:18)
[2022-11-28] MEDS: INSULIN ASPART (NovoLOG) 100 UNIT/ML VIAL SQ SCH ×2 (08:18→17:35)
[2022-11-28] MEDS: PYRIDOXINE 50 MG TAB PO SCH (08:18)
[2022-11-28] MEDS: TAMSULOSIN 0.4 MG CAP.ER.24H PO SCH ×2 (08:19→20:43)
[2022-11-28 08:43] LABS: HCT 33.9 % (39.0-53.0); HGB 11.3 gm/dL (13.0-17.5); MCH 31.4 pg (25.0-35.0); MCHC 33.3 g/dL (31.0-37.0); MCV 94.4 fL (80.0-100.0); Mean Platelet Volume 8.3; Platelet Count 132 k/uL (150-450); RDW 13.9 % (11.5-15.5); WBC 5.2 k/uL (3.8-10.6)
[2022-11-28] MEDS ORDERED: MAGNESIUM SULFATE-D5W PMX 1 GM in DEXTROSE/WATER 1 100ML.BAG IVPB ONE (09:23)
[2022-11-28] MEDS: SODIUM CHLORIDE 0.9% 1,000 ML IV SCH ×2 (09:31→23:15)
[2022-11-28 10:25] LABS: African American GFR (CKD) >90 (>60 ml/min/1.73 sqM); Anion Gap 5 mmol/L; Blood Urea Nitrogen 20 mg/dL (9-20); Calcium 8.7 mg/dL (8.4-10.2); Carbon Dioxide 27 mmol/L (22-30); Chloride 106 mmol/L (98-107); Glucose 159 mg/dL (74-99); Magnesium 1.7 mg/dL (1.6-2.3); Non-African American GFR(CKD) 87 (>60 ml/min/1.73 sqM); Sodium 138 mmol/L (137-145)
--- NOTE | 2022-11-28 11:39 | P.PN ---
Subjective Progress Note Date: 11/28/22 Principal diagnosis: Chest pain The patient is an 81-year-old gentleman with CAD and status post CABG at the [facility] as well as hypertension and dyslipidemia was admitted to the hospital with chest pain and shortness of breath and he underwent a stress test came in to be abnormal. November 272022 The patient was seen and evaluated this morning. He is asymptomatic at this point. The stress test showed an inferior ischemia. The echo showed mildly impaired LV function. The plan is to proceed with a heart catheterization this coming Tuesday. The examination is remarkable for regular rhythm with a soft systolic murmur at right and left upper sternal border. November 282022 The patient was seen and evaluated this morning. He is asymptomatic and he is hemodynamically stable with the plan is to pursue a heart catheterization tomorrow morning. The examination is remarkable for stable vital signs with regular rhythm and systolic murmur and clear breathing sounds bilaterally and no lower extremities edema noted Assessment Chest pain and shortness of breath CAD status post CABG Abnormal myocardial perfusion imaging stress test Multiple comorbid conditions Plan Proceed with coronary angiogram this coming Tuesday Objective - Vital Signs Vital signs: Vital Signs Temp 97.8 F 11/28/22 07:00 Pulse 66 11/28/22 07:00 Resp 16 11/28/22 07:00 BP 119/56 11/28/22 07:00 Pulse Ox 97 11/28/22 09:08 FiO2 Intake & Output 11/27/22 11/28/22 11/28/22 18:59 06:59 18:59 Intake Total 2549 Output Total 550 800 150 Balance 1999 -800 -150 Intake: Oral 2549 Output: Urine 550 800 150 Other: Voiding Method Urinal Urinal - Labs CBC & Chem 7: 11/28/22 07:44 11/28/22 07:44 Labs: Abnormal Lab Results - Last 24 Hours (Table) 11/27/22 11/27/22 11/27/22 Range/Units 12:27 17:20 17:50 RBC (4.30-5.90) m/uL Hgb (13.0-17.5) gm/dL Hct (39.0-53.0) % Plt Count (150-450) k/uL BUN 24 H (9-20) mg/dL Glucose 245 H (74-99) mg/dL POC Glucose (mg/dL) 201 H 217 H (70-110) mg/dL 11/27/22 11/28/22 11/28/22 Range/Units 21:20 05:57 07:44 RBC (4.30-5.90) m/uL Hgb (13.0-17.5) gm/dL Hct (39.0-53.0) % Plt Count (150-450) k/uL BUN (9-20) mg/dL Glucose 159 H (74-99) mg/dL POC Glucose (mg/dL) 142 H 150 H (70-110) mg/dL 11/28/22 Range/Units 07:44 RBC 3.60 L (4.30-5.90) m/uL Hgb 11.3 L (13.0-17.5) gm/dL Hct 33.9 L (39.0-53.0) % Plt Count 132 L (150-450) k/uL BUN (9-20) mg/dL Glucose (74-99) mg/dL POC Glucose (mg/dL) (70-110) mg/dL
--- NOTE | 2022-11-28 11:44 | P.PN ---
Subjective Patient is seen in follow-up for acute kidney injury. Renal function is baseline. No vomiting or diarrhea. Has been voiding. Blood pressure stable. Scheduled for cardiac catheterization tomorrow. Vital signs are stable. General: No acute distress. HEENT: Head exam is unremarkable. LUNGS: No audible rhonchi or wheezes. HEART: Rate and Rhythm are regular. ABDOMEN: Nontender. EXTREMITITES: No edema. Objective - Vital Signs Vital signs: Vital Signs Temp 97.8 F 11/28/22 07:00 Pulse 66 11/28/22 07:00 Resp 16 11/28/22 07:00 BP 119/56 11/28/22 07:00 Pulse Ox 97 11/28/22 09:08 FiO2 Intake & Output 11/27/22 11/28/22 11/28/22 18:59 06:59 18:59 Intake Total 2549 Output Total 550 800 150 Balance 1998 -800 -150 Intake: Oral 2549 Output: Urine 550 800 150 Other: Voiding Method Urinal Urinal - Labs CBC & Chem 7: 11/28/22 07:44 11/28/22 07:44 Labs: Abnormal Lab Results - Last 24 Hours (Table) 11/27/22 11/27/22 11/27/22 Range/Units 12:27 17:20 17:50 RBC (4.30-5.90) m/uL Hgb (13.0-17.5) gm/dL Hct (39.0-53.0) % Plt Count (150-450) k/uL BUN 24 H (9-20) mg/dL Glucose 245 H (74-99) mg/dL POC Glucose (mg/dL) 201 H 217 H (70-110) mg/dL 11/27/22 11/28/22 11/28/22 Range/Units 21:20 05:57 07:44 RBC (4.30-5.90) m/uL Hgb (13.0-17.5) gm/dL Hct (39.0-53.0) % Plt Count (150-450) k/uL BUN (9-20) mg/dL Glucose 159 H (74-99) mg/dL POC Glucose (mg/dL) 142 H 150 H (70-110) mg/dL 11/28/22 Range/Units 07:44 RBC 3.60 L (4.30-5.90) m/uL Hgb 11.3 L (13.0-17.5) gm/dL Hct 33.9 L (39.0-53.0) % Plt Count 132 L (150-450) k/uL BUN (9-20) mg/dL Glucose (74-99) mg/dL POC Glucose (mg/dL) (70-110) mg/dL Assessment and Plan Plan: Assessment: 1. Acute kidney injury mostly prerenal secondary to hypovolemia. Creatinine 1.26 on admission - 0.75 today. UA benign. 2. Metabolic acidosis secondary to IV fluids as well as associated with history of proposed procedure and partial pancreatectomy. Also on metformin. Status post bicarb drip. Improved. 3. Coronary artery disease status post CABG. 4. Diabetes mellitus. 5. Benign hypertension. Stable. 6. Abnormal stress test. Cardiology following. Cardiac catheterization tomorrow. Plan: Change IV fluids to normal saline at 75 mL an hour. Encouraged oral intake. Continue to monitor renal function and urine output. Follow-up CAT scan. Discussed with patient risk of worsening renal failure post-IV contrast exposure. He understands.
--- NOTE | 2022-11-28 11:56 | P.PN ---
Subjective Progress Note Date: 11/28/22 81 years old male with multiple medical problems as below including Coronary Artery Disease status post CABG, Hypertension, Osteoarthritis ,hx. prostate cancer-dx. 2014-recent elevation in PSA so currently had radiation(last treatment was 2018) here,cataracts, Hx Gout. hx of recent ear infection with herb tigo. Arthritis left knee. 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 He follows up with radio news writer and the heads of [facility] cardiology department for his history of CABG 10 years ago. L ast time he saw him was 1 week ago and his been told that his EKG and heart sounds were unremarkable but his radio news writer wanted to do nuclear exam to the heart to check blood flow as patient describes. Patient has chronic increased frequency of urination about 6-7 times each night, he follows therefore his history of prostate cancer recently he had radiotherapy to the area and his urologist injected bit Botox to decrease urgency and frequency. CBC is showing mild anemia 11.8 and thrombocytopenia 143. INR is normal. Creatinine is elevated at 1.2 which is baseline over the last 4 months Liver enzymes slightly elevated with AST 97 and ALT 115. TSH is slightly elevated at 5.9 but free T4 is 1.0 which is within the reference range as well as T3 at 3.3. Chest x-ray: No acute cardiopulmonary process EKG showing sinus bradycardia at 56 with some PVCs. 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 Upon evaluation patient is alert and oriented 3. CT abdomen and pelvis results not back yet. Seen by nephrology magnesium replaced. Creatinine has improved to baseline Objective - Vital Signs Vital signs: Vital Signs Temp 97.8 F 11/28/22 07:00 Pulse 66 11/28/22 07:00 Resp 16 11/28/22 07:00 BP 119/56 11/28/22 07:00 Pulse Ox 97 11/28/22 09:08 FiO2 Intake & Output 11/27/22 11/28/22 11/28/22 18:59 06:59 18:59 Intake Total 2549 Output Total 550 800 150 Balance 1998 Intake: Oral 2549 Output: Urine 550 800 150 Other: Voiding Method Urinal Urinal - Exam PHYSICAL EXAMINATION: GENERAL: The patient is alert and oriented x3, not in any acute distress. Well developed, well nourished. HEENT: Pupils are round and equally reacting to light. EOMI. No scleral icterus. No conjunctival pallor. Normocephalic, atraumatic. No pharyngeal erythema. No thyromegaly. CARDIOVASCULAR: S1 and S2 present. No murmurs, rubs, or gallops. PULMONARY: Chest is clear to auscultation, no wheezing or crackles. ABDOMEN: Soft, nontender, nondistended, normoactive bowel sounds. No palpable organomegaly. MUSCULOSKELETAL: No joint swelling or deformity. EXTREMITIES: No cyanosis, clubbing, or pedal edema. NEUROLOGICAL: Gross neurological examination did not reveal any focal deficits. SKIN: No rashes. - Labs CBC & Chem 7: 11/28/22 07:44 11/28/22 07:44 Labs: Abnormal Lab Results - Last 24 Hours (Table) 11/27/22 11/27/22 11/27/22 Range/Units 12:27 17:20 17:50 RBC (4.30-5.90) m/uL Hgb (13.0-17.5) gm/dL Hct (39.0-53.0) % Plt Count (150-450) k/uL BUN 24 H (9-20) mg/dL Glucose 245 H (74-99) mg/dL POC Glucose (mg/dL) 201 H 217 H (70-110) mg/dL 11/27/22 11/28/22 11/28/22 Range/Units 21:20 05:57 07:44 RBC (4.30-5.90) m/uL Hgb (13.0-17.5) gm/dL Hct (39.0-53.0) % Plt Count (150-450) k/uL BUN (9-20) mg/dL Glucose 159 H (74-99) mg/dL POC Glucose (mg/dL) 142 H 150 H (70-110) mg/dL 11/28/22 Range/Units 07:44 RBC 3.60 L (4.30-5.90) m/uL Hgb 11.3 L (13.0-17.5) gm/dL Hct 33.9 L (39.0-53.0) % Plt Count 132 L (150-450) k/uL BUN (9-20) mg/dL Glucose (74-99) mg/dL POC Glucose (mg/dL) (70-110) mg/dL Assessment and Plan Assessment: Assessment and plan * Coronary artery disease with history of CABG, shortness of breath angina equivalent * Hypertension * Hyperlipidemia * Diabetes mellitus type 2 * History of prostate cancer and basal cell carcinoma * Unintentional weight loss * Consult obtained from cardiology, nephrology * Prem had abnormal stress test on 11/26, continue IV heparin * Accu-Cheks before meals at bedtime, continue patient on metformin, continue sliding scale insulin * Continue patient on Flomax twice a day, continue bladder management protocol * Status is full code * CT abdomen and pelvis pending
--- NOTE | 2022-11-28 12:02 | CT ---
EXAMINATION TYPE: CT ChestAbdPelvis w con CT DLP: 1204 mGycm, Automated exposure control for dose reduction was used. DATE OF EXAM: 11/28/2022 11:14 AM COMPARISON: CT 03/10/2022 right CLINICAL INDICATION:Male, 81 years old with history of weight loss, hx of prostate cancer, weight los s Technique: Multiple axial images of the chest, abdomen, and pelvis were obtained. Two-dimensional cor onal and sagittal reconstructions were obtained. Contrast used:100 mL of Isovue 300 with IV Contrast, Oral contrast used: without Oral Contrast Findings: CHEST: LUNGS/ PLEURA: No evidence of focal consolidation, pneumothorax or pleural effusion. Right upper lobe pulmonary nodule measuring 3 mm unchanged from at least 2019. Left upper lobe pulmonary nodule measu ring 4 mm unchanged from 2019. AIRWAY: Patent and unremarkable. HEART: Size within normal limits. Coronary artery atherosclerosis is present. MEDIASTINUM: No gross evidence of adenopathy. VASCULATURE: No aortic aneurysm. Atherosclerosis of the arterial vasculature. MUSCULOSKELETAL: No acute osseous abnormalities. Sternotomy wires are present. Bone island in T11 is unchanged from 2011. SOFT TISSUES/LYMPH NODES: Unremarkable. LOWER NECK: No significant findings. ABDOMEN: ABDOMEN LIVER: Unremarkable GALLBLADDER AND BILE DUCTS: Redemonstration pneumobilia primarily affecting the left hepatic lobe. Th e gallbladder is not visualized and may be surgically absent. PANCREAS: Dilation of the main pancreatic duct visualized in the pancreatic body and tail measuring u p to 9 mm is unchanged from , 03/10/2022 05/04/2021 appears increased on 07/04/2019. The pancreatic hea d and uncinate process and neck is not definitively visualized there may be surgically absent. SPLEEN: Unremarkable. ADRENAL GLANDS: Unremarkable. KIDNEYS AND URETERS: No evidence of hydronephrosis or renal calculus. The ureters are unremarkable. PELVIS BLADDER: Unremarkable REPRODUCTIVE: Prostate is enlarged in size measuring 5.2 cm in transverse dimension. ABDOMEN & PELVIS STOMACH AND BOWEL: No evidence of bowel obstruction. There is postsurgical changes to the bowel. Ther e is moderate to large amount stool within the colon. PERITONEUM: No evidence of pneumoperitoneum or free fluid. VASCULATURE: No evidence of aortic aneurysm. Atherosclerosis of the arterial vasculature. MUSCULOSKELETAL: No acute osseous abnormalities, multilevel disc degeneration changes throughout the spine. Similar degeneration of L3 with irregular shaped lucent areas visualized comparing to 03/10/20 22. 05/04/2021. Bone island in the left anterior superior pubic ramus unchanged. Right posterior iliac bone island is unchanged. LYMPH NODES: No gross evidence for lymphadenopathy. SOFT TISSUE/ABDOMINAL WALL: Unremarkable IMPRESSION: 1. Postsurgical changes with gallbladder removal with similar pneumobilia and dilation of the main p ancreatic duct, findings similar to 03/10/2022, and 05/04/2021. No evidence for enlarging mass or lymp hadenopathy. 2. Large stool burden throughout the colon. 3. Prostatomegaly, correlate with serum PSA.
[2022-11-28 12:12] LABS: Glucose,Whole Blood 319 mg/dL (70-110)
[2022-11-28 17:15] LABS: Glucose,Whole Blood 295 mg/dL (70-110)
[2022-11-28 20:31] LABS: Glucose,Whole Blood 185 mg/dL (70-110)
[2022-11-28] MEDS: SUCRALFATE 1 GM TAB PO SCH (20:43)
[2022-11-28] MEDS: METOCLOPRAMIDE 10 MG TAB PO SCH (20:45)
[2022-11-29] MEDS ORDERED: ATORVASTATIN 80 MG TAB PO ONE (05:00)
[2022-11-29] MEDS ORDERED: ASPIRIN 325 MG TAB PO ONE (05:00)
[2022-11-29] MEDS: SODIUM CHLORIDE 0.9% 1,000 ML in EMPTY BAG 1 BAG IV SCH ×2 (05:28→13:48)
[2022-11-29 06:09] LABS: Glucose,Whole Blood 151 mg/dL (70-110)
[2022-11-29] MEDS: LIPASE 20,000/PROTEASE 63,000/AMYLASE 84,000 PO SCH ×3 (07:06→18:02)
[2022-11-29] MEDS: INSULIN ASPART (NovoLOG) 100 UNIT/ML VIAL SQ SCH ×2 (07:06→13:52)
[2022-11-29 07:39] LABS: African American GFR (CKD) >90 (>60 ml/min/1.73 sqM); Blood Urea Nitrogen 17 mg/dL (9-20); Calcium 8.5 mg/dL (8.4-10.2); Carbon Dioxide 27 mmol/L (22-30); Glucose 157 mg/dL (74-99); Non-African American GFR(CKD) >90 (>60 ml/min/1.73 sqM)
[2022-11-29 08:06] LABS: Anion Gap 2 mmol/L; Chloride 107 mmol/L (98-107); Potassium 3.8 mmol/L (3.5-5.1); Sodium 136 mmol/L (137-145)
[2022-11-29] MEDS: metFORMIN 500 MG TAB PO SCH (08:21)
[2022-11-29] MEDS: INSULIN DETEMIR (LEVEMIR) 100 UNIT/ML SYR SQ SCH (08:21)
[2022-11-29] MEDS: IPRATROPIUM BROMIDE 0.06% NASAL SPRAY (15 ML) EA NOSTRIL SCH (08:27)
[2022-11-29] MEDS: ATORVASTATIN 80 MG TAB PO SCH (08:27)
[2022-11-29] MEDS: FINASTERIDE 5 MG TAB PO SCH (08:27)
[2022-11-29] MEDS: allopurinoL 100 MG TAB PO SCH (08:27)
[2022-11-29] MEDS: ASPIRIN 81 MG PO SCH (08:27)
[2022-11-29] MEDS: PYRIDOXINE 50 MG TAB PO SCH (08:27)
[2022-11-29] MEDS: TAMSULOSIN 0.4 MG CAP.ER.24H PO SCH ×2 (08:27→20:01)
[2022-11-29] MEDS: LOSARTAN 25 MG TAB PO SCH ×2 (08:27→20:01)
[2022-11-29] MEDS ORDERED: IV FLUID CONTINUATION 800 ML IV ONE (09:10)
[2022-11-29] MEDS ORDERED: fentaNYL (PF) 50 MCG/ML 2 ML AMP ONE (09:11)
[2022-11-29] MEDS ORDERED: LIDOCAINE 1% INJ 10MG/ML (20 ML MDV) ONE (09:11)
[2022-11-29] MEDS ORDERED: LIDOCAINE 1% INJ 10MG/ML (20 ML MDV) SQ ONE (09:21)
[2022-11-29] MEDS ORDERED: MIDAZOLAM 2 MG/2 ML VIAL IVP ONE (09:21)
[2022-11-29] MEDS ORDERED: fentaNYL (PF) 50 MCG/ML 2 ML AMP IVP ONE (09:21)
[2022-11-29] MEDS ORDERED: IOPAMIDOL-370 100ML BTL INJ ONE ×3 (09:51→10:33)
--- NOTE | 2022-11-29 09:56 | P.PN ---
Subjective Progress Note Date: 11/29/22 Chest pain The patient is an 81-year-old gentleman with CAD and status post CABG at the [facility] as well as hypertension and dyslipidemia was admitted to the hospital with chest pain and shortness of breath and he underwent a stress test came in to be abnormal. November 272022 The patient was seen and evaluated this morning. He is asymptomatic at this point. The stress test showed an inferior ischemia. The echo showed mildly impaired LV function. The plan is to proceed with a heart catheterization this coming Tuesday. The examination is remarkable for regular rhythm with a soft systolic murmur at right and left upper sternal border. November 282022 The patient was seen and evaluated this morning. He is asymptomatic and he is hemodynamically stable with the plan is to pursue a heart catheterization tomorrow morning. 11/29 Patient is scheduled for cardiac catheterization today with Dr. Antoinette Negron. Patient denies having any chest pain. He is ventilating his room without any difficulty, no shortness of breath, no lightheadedness or dizziness. BUN 17 and creatinine 0.65. Blood pressure 108/58, heart rate 62. Pulse ox 100% on room air. The examination is remarkable for stable vital signs with regular rhythm and systolic murmur and clear breathing sounds bilaterally and no lower extremities edema noted Assessment Chest pain and shortness of breath CAD status post CABG Abnormal myocardial perfusion imaging stress test Multiple comorbid conditions Plan Proceed with coronary angiogram with Dr. Antoinette Negron Continue current cardiac medications Further recommendations as patient progresses Nurse practitioner note has been reviewed, I agree with the documented findings and plan of care. Patient was seen and examined. Objective - Vital Signs Vital signs: Vital Signs Temp 98.1 F 11/29/22 02:23 Pulse 66 11/29/22 02:23 Resp 16 11/29/22 02:23 BP 131/69 11/29/22 02:23 Pulse Ox 99 11/29/22 02:23 FiO2 Intake & Output 11/28/22 11/29/22 11/29/22 18:59 06:59 18:59 Intake Total 711 950 Output Total 800 350 Balance -89 600 Intake: Intake, IV Titration 950 Amount Sodium Chloride 0.9% 1, 950 000 ml @ 75 mls/hr IV . [id number] [facility] Rx#:[id number] Oral 711 Output: Urine 800 350 Other: Voiding Method Urinal Urinal # Voids 4 - Labs CBC & Chem 7: 11/28/22 07:44 11/29/22 06:59 Labs: Abnormal Lab Results - Last 24 Hours (Table) 11/28/22 11/28/22 11/28/22 Range/Units 07:44 07:44 12:10 RBC 3.60 L (4.30-5.90) m/uL Hgb 11.3 L (13.0-17.5) gm/dL Hct 33.9 L (39.0-53.0) % Plt Count 132 L (150-450) k/uL Creatinine (0.66-1.25) mg/dL Glucose 159 H (74-99) mg/dL POC Glucose (mg/dL) 319 H (70-110) mg/dL 11/28/22 11/28/22 11/29/22 Range/Units 17:14 20:29 06:08 RBC (4.30-5.90) m/uL Hgb (13.0-17.5) gm/dL Hct (39.0-53.0) % Plt Count (150-450) k/uL Creatinine (0.66-1.25) mg/dL Glucose (74-99) mg/dL POC Glucose (mg/dL) 295 H 185 H 151 H (70-110) mg/dL 11/29/22 Range/Units 06:59 RBC (4.30-5.90) m/uL Hgb (13.0-17.5) gm/dL Hct (39.0-53.0) % Plt Count (150-450) k/uL Creatinine 0.65 L (0.66-1.25) mg/dL Glucose 157 H (74-99) mg/dL POC Glucose (mg/dL) (70-110) mg/dL
[2022-11-29] MEDS ORDERED: HEPARIN SODIUM 1,000 UN/ML (10ML VL) ONE (10:09)
[2022-11-29] MEDS ORDERED: niCARdipine 25 MG/10 ML VIAL ONE (10:11)
[2022-11-29] MEDS: HEPARIN SODIUM 1,000 UN/ML (10ML VL) IV ONE ×2 (10:11→10:30)
[2022-11-29] MEDS: niCARdipine Syringe (1,000 mcg/10 mL) INTRACORON ONE ×2 (10:15→10:21)
[2022-11-29] MEDS ORDERED: TICAGRELOR 90 MG TAB ONE (10:16)
[2022-11-29] MEDS ORDERED: TICAGRELOR 90 MG TAB PO ONE (10:19)
[2022-11-29] MEDS ORDERED: RX INFO: IV CONTRAST WAS GIVEN 1 EACH MISC MISCELLANE PRN (10:25)
[2022-11-29] MEDS ORDERED: MAG HYDROX/AL HYDROX/SIMETH 30 ML CUP PO PRN (10:25)
[2022-11-29] MEDS ORDERED: ZOLPIDEM 5 MG TAB PO PRN (10:25)
[2022-11-29] MEDS ORDERED: NITROGLYCERIN SL TABS 0.4 MG TAB SUBLINGUAL PRN (10:25)
[2022-11-29] MEDS ORDERED: ATROPINE SULFATE 0.1 MG/ML 10ML SYRINGE IV PRN (10:25)
--- NOTE | 2022-11-29 10:29 | P.PCN ---
Date of Procedure: 11/29/22 Operative Findings: PERCUTANEOUS CORONARY INTERVENTION Performing physician Roger Maya M.D. Procedure Performed: 1. Successful stenting of the SVG to diagonal using 3.0 x 15 mm Xience drug- eluting stent with an excellent angiographic results. 2. Selective right common femoral artery angiogram Indication: Chest discomfort in this 81-year-old gentleman who is known to have CAD was prior CABG who underwent myocardial perfusion imaging stress test and that revealed ischemia. Subsequently he underwent a heart catheterization by Dr. Negron and that revealed critical disease involving and SVG feeding large diagonal branch. Approach: Right common femoral artery Complications: None Level of Sedation: Moderate with a sedation length of 14 minutes Procedure Discussion: Please refer to the diagnostic heart catheterization was performed earlier. Anticoagulation was initiated using heparin with continuous ACT monitoring. The patient was given 4000 is at the beginning of the procedure with additional 2000 throughout the procedure based on the ACT. I did engage the SVG to diagonal using AL-1 guiding catheter. Wired using a whisper wire and the wire was advanced to the diagonal. Subsequently predilatation was performed using 2.5 mm balloon before I deployed 3.0 x 15 mm stent where the stent was positioned under fluoroscopy guidance and deployed under its nominal pressure. Final angiogram showed good angiographic results was LIDA-3 flow. I premedicated the patient using nicardipine. The procedure was completed was no complication. No evidence of no reflow was identified. Postprocedure Management: 1. Dual antiplatelet therapy using aspirin and Brilinta for at least 6 months 2. Aggressive cholesterol control 3. Risk factors modification
[2022-11-29] MEDS ORDERED: SODIUM CHLORIDE 0.9% 1,000 ML in EMPTY BAG 1 BAG IV SCH (10:30)
--- NOTE | 2022-11-29 11:01 | CC ---
CARDIAC CATHETERIZATION REPORT INDICATION: An 81-year-old gentleman with history of known coronary artery disease, status post bypass surgery, who presented to us with exertional shortness of breath and had a Lexiscan that showed ischemia involving inferior wall and was advised to undergo cardiac catheterization. He was explained of risks, benefits and alternatives, understood and accepted. He follows at [facility], we advised him to go back to [facility] to have his angiogram, but he opted to have it done here. We do not have a surgical report, but we know that he had 4 bypasses. PROCEDURE NOTE: After obtaining informed consent, left heart catheterization, coronary angiogram, and aortogram were performed using standard catheters. The patient tolerated the procedure well without any obvious immediate complications. Total sedation time was 35 minutes. FINDINGS: 1. HEMODYNAMICS: a.Left ventricular end-diastolic pressure is 9 mm. There is no significant gradient across the aortic valve. b.Left ventriculogram: Left ventriculogram is not performed. c.Aortogram: Aortogram was performed to locate the bypass graft and we subselectively visualized one of the bypass grafts that we could not locate initially. Aorta does not seem aneurysmal. 2. ANGIOGRAPHIC DATA: [place] coronary arteries: a.Right coronary artery: Right coronary artery is totally occluded in its proximal portion. b.Left main coronary artery is heavily calcified, divides into left anterior descending coronary artery and circumflex coronary artery. LAD is totally occluded proximally. c.Circumflex coronary artery is diffusely diseased with 90% stenosis proximally. 3. Selective injection of the bypass grafts: a.TRONCOSO to LAD appears patent. Proximal and distal anastomotic sites and the body of the graft was free of disease and the [place] LAD appears free of stenosis. b.Venous graft to the right coronary artery appears patent, shows mild nonobstructive disease. Anastomotic sites are free of significant stenosis and the body of the graft is free of significant disease. c.One of the venous bypass grafts is totally occluded and the fourth bypass graft was documented on the aortogram and this is probably the graft to the circumflex coronary artery. PLAN: 1. [place] 3-vessel coronary artery disease. 2. Patent TRONCOSO to LAD, patent venous graft to the right coronary artery, occluded venous graft and the fourth graft that is visualized on the right coronary artery. 3. I am going to have Dr. Maya, the on-call bankruptcy processor, review the angiographic data and decide on whether to perform angioplasty of the venous graft that we were visualizing on the aortogram. It seemed to have a tight stenosis in the proximal portion. MMODL / IJN: [id number] /
[2022-11-29 13:16] LABS: Free Kappa Lt Chain Qnt, Serum 4.16 mg/dL (0.33-1.94); Free Lambda Lt Chain Qnt, Seru 2.53 mg/dL (0.57-2.63)
[2022-11-29] MEDS: SODIUM CHLORIDE 0.9% 1,000 ML IV SCH ×2 (13:48→21:44)
[2022-11-29 13:55] LABS: Glucose,Whole Blood 163 mg/dL (70-110)
--- NOTE | 2022-11-29 15:01 | P.PN ---
Subjective Progress Note Date: 11/29/22 81 years old male with multiple medical problems as below including Coronary Artery Disease status post CABG, Hypertension, Osteoarthritis ,hx. prostate cancer-dx. 2014-recent elevation in PSA so currently had radiation(last treatment was 2018) here,cataracts, Hx Gout. hx of recent ear infection with herb tigo. Arthritis left knee. 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 He follows up with business reporting developer and the heads of [facility] cardiology department for his history of CABG 10 years ago. L ast time he saw him was 1 week ago and his been told that his EKG and heart sounds were unremarkable but his business reporting developer wanted to do nuclear exam to the heart to check blood flow as patient describes. Patient has chronic increased frequency of urination about 6-7 times each night, he follows therefore his history of prostate cancer recently he had radiotherapy to the area and his urologist injected bit Botox to decrease urgency and frequency. CBC is showing mild anemia 11.8 and thrombocytopenia 143. INR is normal. Creatinine is elevated at 1.2 which is baseline over the last 4 months Liver enzymes slightly elevated with AST 97 and ALT 115. TSH is slightly elevated at 5.9 but free T4 is 1.0 which is within the reference range as well as T3 at 3.3. Chest x-ray: No acute cardiopulmonary process EKG showing sinus bradycardia at 56 with some PVCs. 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 Upon evaluation patient is alert and oriented 3. CT abdomen and pelvis results not back yet. Seen by nephrology magnesium replaced. Creatinine has improved to baseline 11/29/2022 : Patient seen and everted bedside. Patient is status post cardiac catheterization and PCI. CT abdomen and pelvis findings discussed with patient and recommend outpatient follow-up with urology continue patient on aspirin and will enter Objective - Vital Signs Vital signs: Vital Signs Temp 97.9 F 11/29/22 07:40 Pulse 59 L 11/29/22 13:30 Resp 16 11/29/22 13:30 BP 152/69 11/29/22 13:30 Pulse Ox 100 11/29/22 13:30 FiO2 Intake & Output 11/28/22 11/29/22 11/29/22 18:59 06:59 18:59 Intake Total 711 950 250 Output Total 800 350 Balance -89 600 250 Weight 63.503 kg Intake: IV 250 Intake, IV Titration 950 Amount Sodium Chloride 0.9% 1, 950 000 ml @ 75 mls/hr IV . [id number] [facility] Rx#:[id number] Oral 711 Output: Urine 800 350 Other: Voiding Method Urinal Urinal Urinal # Voids 4 3 - Exam PHYSICAL EXAMINATION: GENERAL: The patient is alert and oriented x3, not in any acute distress. Well developed, well nourished. HEENT: Pupils are round and equally reacting to light. EOMI. No scleral icterus. No conjunctival pallor. Normocephalic, atraumatic. No pharyngeal erythema. No thyromegaly. CARDIOVASCULAR: S1 and S2 present. No murmurs, rubs, or gallops. PULMONARY: Chest is clear to auscultation, no wheezing or crackles. ABDOMEN: Soft, nontender, nondistended, normoactive bowel sounds. No palpable organomegaly. MUSCULOSKELETAL: Right groin cardiac catheterization exercise no hematoma noted EXTREMITIES: No cyanosis, clubbing, or pedal edema. NEUROLOGICAL: Gross neurological examination did not reveal any focal deficits. SKIN: No rashes. - Labs CBC & Chem 7: 11/28/22 07:44 11/29/22 06:59 Labs: Abnormal Lab Results - Last 24 Hours (Table) 11/26/22 11/28/22 11/28/22 Range/Units 17:03 17:14 20:29 Sodium (137-145) mmol/L Creatinine (0.66-1.25) mg/dL Glucose (74-99) mg/dL POC Glucose (mg/dL) 295 H 185 H (70-110) mg/dL Free [place] LC, Quant 4.16 H (0.33-1.94) mg/dL 11/29/22 11/29/22 11/29/22 Range/Units 06:08 06:59 13:54 Sodium 136 L (137-145) mmol/L Creatinine 0.65 L (0.66-1.25) mg/dL Glucose 157 H (74-99) mg/dL POC Glucose (mg/dL) 151 H 163 H (70-110) mg/dL Free [place] LC, Quant (0.33-1.94) mg/dL Assessment and Plan Assessment: Assessment and plan * Coronary artery disease with history of CABG, shortness of breath angina equivalent * Hypertension * Hyperlipidemia * Diabetes mellitus type 2 * History of prostate cancer and basal cell carcinoma * Unintentional weight loss * Consult obtained from cardiology, nephrology * Prem had abnormal stress test on 11/26, status post cardiac catheterization PCI completed continue aspirin and will enter * Accu-Cheks before meals at bedtime, continue patient on metformin, continue sliding scale insulin * Continue patient on Flomax twice a day, continue bladder management protocol * Status is full code * CT abdomen and pelvis no lymphadenopathy noted, prostate enlargement noted needs follow-up with urology outpatient
[2022-11-29 17:04] LABS: Glucose,Whole Blood 225 mg/dL (70-110)
[2022-11-29 19:36] LABS: Glucose,Whole Blood 168 mg/dL (70-110)
[2022-11-29] MEDS: TICAGRELOR 90 MG TAB PO SCH (20:01)
[2022-11-29] MEDS: METOCLOPRAMIDE 10 MG TAB PO SCH (20:01)
[2022-11-29] MEDS: SUCRALFATE 1 GM TAB PO SCH (20:01)
[2022-11-29 21:12] LABS: Gamma Globulin 1.23 d/dL (0.70-1.50)
[2022-11-30] MEDS: SODIUM CHLORIDE 0.9% 1,000 ML in EMPTY BAG 1 BAG IV SCH (05:18)
[2022-11-30 06:53] LABS: African American GFR (CKD) >90 (>60 ml/min/1.73 sqM); Anion Gap 8 mmol/L; Blood Urea Nitrogen 18 mg/dL (9-20); Calcium 8.4 mg/dL (8.4-10.2); Carbon Dioxide 21 mmol/L (22-30); Chloride 109 mmol/L (98-107); Glucose 88 mg/dL (74-99); Non-African American GFR(CKD) 89 (>60 ml/min/1.73 sqM); Sodium 138 mmol/L (137-145)
[2022-11-30] MEDS: FINASTERIDE 5 MG TAB PO SCH (09:11)
[2022-11-30] MEDS: INSULIN DETEMIR (LEVEMIR) 100 UNIT/ML SYR SQ SCH (09:11)
[2022-11-30] MEDS: TICAGRELOR 90 MG TAB PO SCH (09:11)
[2022-11-30] MEDS: LOSARTAN 25 MG TAB PO SCH (09:11)
[2022-11-30] MEDS: allopurinoL 100 MG TAB PO SCH (09:11)
[2022-11-30] MEDS: ASPIRIN 81 MG PO SCH (09:12)
[2022-11-30] MEDS: PYRIDOXINE 50 MG TAB PO SCH (09:12)
[2022-11-30] MEDS: TAMSULOSIN 0.4 MG CAP.ER.24H PO SCH (09:12)
[2022-11-30] MEDS: ATORVASTATIN 80 MG TAB PO SCH (09:12)
[2022-11-30] MEDS: LIPASE 20,000/PROTEASE 63,000/AMYLASE 84,000 PO SCH (09:12)
[2022-11-30] MEDS: INSULIN ASPART (NovoLOG) 100 UNIT/ML VIAL SQ SCH (09:12)
[2022-11-30] MEDS: IPRATROPIUM BROMIDE 0.06% NASAL SPRAY (15 ML) EA NOSTRIL SCH ×2 (09:13→09:14)
[2022-11-30 09:21] VITALS: BP 121/64; PULSE 68; RESP 16; TEMP 97.7
--- NOTE | 2022-11-30 09:23 | P.PN ---
Subjective Progress Note Date: 11/30/22 Chest pain The patient is an 81-year-old gentleman with CAD and status post CABG at the [facility] as well as hypertension and dyslipidemia was admitted to the hospital with chest pain and shortness of breath and he underwent a stress test came in to be abnormal. November 272022 The patient was seen and evaluated this morning. He is asymptomatic at this point. The stress test showed an inferior ischemia. The echo showed mildly impaired LV function. The plan is to proceed with a heart catheterization this coming Tuesday. The examination is remarkable for regular rhythm with a soft systolic murmur at right and left upper sternal border. November 282022 The patient was seen and evaluated this morning. He is asymptomatic and he is hemodynamically stable with the plan is to pursue a heart catheterization tomorrow morning. 11/29 Patient is scheduled for cardiac catheterization today with Dr. Antoinette Negron. Patient denies having any chest pain. He is ventilating his room without any difficulty, no shortness of breath, no lightheadedness or dizziness. BUN 17 and creatinine 0.65. Blood pressure 108/58, heart rate 62. Pulse ox 100% on room air. 11/30 Yesterday, patient underwent cardiac catheterization performed by Dr. Negron which revealed [place] 3 vessel coronary artery disease. Patent TRONCOSO to LAD, patent venous graft to the right coronary artery, occluded venous graft and the fourth graft that is visualized on the right coronary artery. He underwent successful stenting of the SVG to diagonal performed by Dr. Maya. Blood pressure 138/75, heart rate in the 60s and 70s, pulse ox 97% on room air, afebrile. Repeat blood work reveals BUN 18, creatinine 0.7, potassium 4. The examination is remarkable for stable vital signs with regular rhythm and systolic murmur and clear breathing sounds bilaterally and no lower extremities edema noted Assessment Chest pain and shortness of breath secondary to coronary artery disease status post stent of the SVG to diagonal 11/29 CAD status post CABG Abnormal myocardial perfusion imaging stress test Multiple comorbid conditions Plan Continue current cardiac medications Patient is cleared for discharge from cardiology may follow-up with Dr. Negron in one week. Nurse practitioner note has been reviewed, I agree with the documented findings and plan of care. Patient was seen and examined. Objective - Vital Signs Vital signs: Vital Signs Temp 97.3 F L 11/30/22 01:40 Pulse 71 08/22/23 01:40 Resp 14 11/30/22 01:40 BP 138/75 11/30/22 01:40 Pulse Ox 97 11/30/22 01:40 FiO2 Intake & Output 11/29/22 11/30/22 11/30/22 18:59 06:59 18:59 Intake Total 790 Output Total 300 750 Balance 490 -750 Weight 63.503 kg Intake: IV 435 Oral 355 Output: Urine 300 750 Other: Voiding Method Urinal Toilet Urinal # Voids 3 1 - Labs CBC & Chem 7: 11/28/22 07:44 11/30/22 05:39 Labs: Abnormal Lab Results - Last 24 Hours (Table) 11/26/22 11/29/22 11/29/22 Range/Units 17:03 06:59 13:54 Sodium 136 L (137-145) mmol/L Chloride (98-107) mmol/L Carbon Dioxide (22-30) mmol/L Creatinine 0.65 L (0.66-1.25) mg/dL Glucose 157 H (74-99) mg/dL POC Glucose (mg/dL) 163 H (70-110) mg/dL Free [place] LC, Quant 4.16 H (0.33-1.94) mg/dL 11/29/22 11/29/22 11/30/22 Range/Units 17:03 19:35 05:39 Sodium (137-145) mmol/L Chloride 109 H (98-107) mmol/L Carbon Dioxide 21 L (22-30) mmol/L Creatinine (0.66-1.25) mg/dL Glucose (74-99) mg/dL POC Glucose (mg/dL) 225 H 168 H (70-110) mg/dL Free [place] LC, Quant (0.33-1.94) mg/dL
--- NOTE | 2022-11-30 10:35 | P.DS ---
Providers Date of admission: 11/29/22 12:13 Expected date of discharge: 11/30/22 Attending physician: Ghulam Black MD Consults: 11/25/22 14:49 Consult Physician Routine Consulting Provider: Yulia Allan Consult Reason/Comments: Loss of weight, history of cancer Do you want consulting provider notified?: Yes 11/25/22 17:36 Consult Physician Routine Consulting Provider: Nargis Mo Consult Reason/Comments: bladder retention Do you want consulting provider notified?: Yes 11/26/22 14:38 Consult Physician Routine Consulting Provider: Keanu Negron Consult Reason/Comments: CP Do you want consulting provider notified?: Already Contacted 11/29/22 10:25 Consult Physician Routine Consulting Provider: [facility] Consult Reason/Comments: Post Interventional patient Do you want consulting provider notified?: Already Contacted Primary care physician: Rah Nava [facility] Course: 81 years old male with multiple medical problems as below including Coronary Artery Disease status post CABG, Hypertension, Osteoarthritis ,hx. prostate cancer-dx. 2014-recent elevation in PSA so currently had radiation(last treatment was 2018) here,cataracts, Hx Gout. hx of recent ear infection with vertigo. Arthritis left knee. 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 He follows up with director bioinformatics and the heads of [facility] cardiology department for his history of CABG 10 years ago. L ast time he saw him was 1 week ago and his been told that his EKG and heart sounds were unremarkable but his director bioinformatics wanted to do nuclear exam to the heart to check blood flow as patient describes. Patient has chronic increased frequency of urination about 6-7 times each night, he follows therefore his history of prostate cancer recently he had radiotherapy to the area and his urologist injected bit Botox to decrease urgency and frequency. CBC is showing mild anemia 11.8 and thrombocytopenia 143. INR is normal. Creatinine is elevated at 1.2 which is baseline over the last 4 months Liver enzymes slightly elevated with AST 97 and ALT 115. TSH is slightly elevated at 5.9 but free T4 is 1.0 which is within the reference range as well as T3 at 3.3. Chest x-ray: No acute cardiopulmonary process EKG showing sinus bradycardia at 56 with some PVCs. 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 Upon evaluation patient is alert and oriented 3. CT abdomen and pelvis results not back yet. Seen by nephrology magnesium replaced. Creatinine has improved to baseline 11/29/2022 : Patient seen and everted bedside. Patient is status post cardiac catheterization and PCI. CT abdomen and pelvis findings discussed with patient and recommend outpatient follow-up with urology continue patient on aspirin and brilanta 11/30/2022: Patient seen and evaluated bedside. Patient is status post cardiac catheterization monitored overnight, labs reviewed, cleared for discharge by cardiology right groin site no hematoma noted at bedside all questions answered. We'll follow-up with urology outpatient PHYSICAL EXAMINATION: GENERAL: The patient is alert and oriented x3, not in any acute distress. Well developed, well nourished. HEENT: Pupils are round and equally reacting to light. EOMI. No scleral icterus. No conjunctival pallor. Normocephalic, atraumatic. No pharyngeal erythema. No thyromegaly. CARDIOVASCULAR: S1 and S2 present. No murmurs, rubs, or gallops. PULMONARY: Chest is clear to auscultation, no wheezing or crackles. ABDOMEN: Soft, nontender, nondistended, normoactive bowel sounds. No palpable organomegaly. MUSCULOSKELETAL: Right groin cardiac catheterization exercise no hematoma noted EXTREMITIES: No cyanosis, clubbing, or pedal edema. NEUROLOGICAL: Gross neurological examination did not reveal any focal deficits. SKIN: No rashes. Assessment and plan * Coronary artery disease with history of CABG, shortness of breath angina equiv alent * Hypertension * Hyperlipidemia * Diabetes mellitus type 2 * History of prostate cancer and basal cell carcinoma * Unintentional weight loss * Consult obtained from cardiology, nephrology * Prme had abnormal stress test on 11/26, status post cardiac catheterization PCI completed continue aspirin and will enter * Accu-Cheks before meals at bedtime, continue patient on metformin, continue home regimen * Continue patient on Flomax twice a day, continue bladder management protocol * CT abdomen and pelvis no lymphadenopathy noted, prostate enlargement noted needs follow-up with urology outpatient Patient Condition at Discharge: Stable Plan - Discharge Summary New Discharge Prescriptions: New Ticagrelor [Brilinta] 90 mg PO BID #180 tab Nitroglycerin Sl Tabs [Nitrostat] 0.4 mg SUBLINGUAL Q5M PRN #25 tab PRN Reason: Chest Pain Continue Aspirin 81 mg PO DAILY Losartan [Cozaar] 25 mg PO BID Finasteride [Proscar] 5 mg PO DAILY Atorvastatin [Lipitor] 80 mg PO DAILY allopurinoL [Zyloprim] 100 mg PO DAILY Tamsulosin HCl [Flomax] 0.4 mg PO DAILY Pyridoxine [Vitamin B-6] 50 mg PO DAILY Lipase/Protease/Amylase [Creelsa Dr 24,000 Unit Capsule] 1 capsule PO TID- W/MEALS metFORMIN HCL 1,000 mg PO DAILY Sucralfate [Carafate] 1 gm PO HS Ipratropium [place] 0.06%Nasal [Atrovent Nasal 0.06%] 2 spray EA NOSTRIL BID Metoclopramide [Reglan] 10 mg PO HS Insulin Glargine [Lantus Vial] 10 unit SQ DAILY Semaglutide [Ozempic] 0.25 mg SQ SA@1200 Sleep 3 (Nature's Bounty Sleep Aid) 1 tab PO HS Otc Sleep-Aid (Unknown Medication And Strength) 1 tab PO HS INSULIN ASPART (NovoLOG) [NovoLOG (formulary)] 6 unit SQ AC-BID Discharge Medication List Aspirin 81 mg PO DAILY 08/23/16 [History] Atorvastatin [Lipitor] 80 mg PO DAILY 08/23/16 [History] Finasteride [Proscar] 5 mg PO DAILY 08/23/16 [History] Losartan [Cozaar] 25 mg PO BID 08/23/16 [History] Tamsulosin HCl [Flomax] 0.4 mg PO DAILY 08/23/16 [History] allopurinoL [Zyloprim] 100 mg PO DAILY 08/23/16 [History] Lipase/Protease/Amylase [Luis Dr 24,000 Unit Capsule] 1 capsule PO TID-W/MEALS 07/04/19 [History] Pyridoxine [Vitamin B-6] 50 mg PO DAILY 07/04/19 [History] Ipratropium [place] 0.06%Nasal [Atrovent Nasal 0.06%] 2 spray EA NOSTRIL BID 04/25/22 [History] Sucralfate [Carafate] 1 gm PO HS 04/25/22 [History] metFORMIN HCL 1,000 mg PO DAILY 04/25/22 [History] INSULIN ASPART (NovoLOG) [NovoLOG (formulary)] 6 unit SQ AC-BID 11/25/22 [History] Insulin Glargine [Lantus Vial] 10 unit SQ DAILY 11/25/22 [History] Metoclopramide [Reglan] 10 mg PO HS 11/25/22 [History] Otc Sleep-Aid (Unknown Medication And Strength) 1 tab PO HS 11/25/22 [History] Semaglutide [Ozempic] 0.25 mg SQ SA@1200 11/25/22 [History] Sleep 3 (Nature's Bounty Sleep Aid) 1 tab PO HS 11/25/22 [History] Nitroglycerin Sl Tabs [Nitrostat] 0.4 mg SUBLINGUAL Q5M PRN #25 tab 11/30/22 [Rx] Ticagrelor [Brilinta] 90 mg PO BID #180 tab 11/30/22 [Rx] Follow up Appointment(s)/Referral(s): Rah Tsai MD [Primary Care Provider] - 1-2 days Keanu Negron MD [STAFF PHYSICIAN] - 1 Week Discharge Disposition: HOME SELF-CARE
--- NOTE | 2022-11-30 13:33 | P.PN ---
Subjective Patient is seen in follow-up for acute kidney injury. Renal function is baseline. No vomiting or diarrhea. Has been voiding. Blood pressure stable. Underwent cardiac stenting yesterday. Vital signs are stable. General: No acute distress. HEENT: Head exam is unremarkable. LUNGS: No audible rhonchi or wheezes. HEART: Rate and Rhythm are regular. ABDOMEN: Nontender. EXTREMITITES: No edema. Objective - Vital Signs Vital signs: Vital Signs Temp 97.7 F 11/30/22 08:20 Pulse 68 11/30/22 08:20 Resp 16 11/30/22 08:20 BP 121/64 11/30/22 08:20 Pulse Ox 97 11/30/22 08:37 FiO2 21 11/30/22 08:37 Intake & Output 11/29/22 11/30/22 11/30/22 18:59 06:59 18:59 Intake Total 790 Output Total 300 750 100 Balance 490 -750 -100 Weight 63.503 kg Intake: IV 435 Oral 355 Output: Urine 300 750 100 Other: Voiding Method Urinal Toilet Urinal # Voids 3 1 - Labs CBC & Chem 7: 11/28/22 07:44 11/30/22 05:39 Labs: Abnormal Lab Results - Last 24 Hours (Table) 11/29/22 11/29/22 11/29/22 Range/Units 13:54 17:03 19:35 Chloride (98-107) mmol/L Carbon Dioxide (22-30) mmol/L POC Glucose (mg/dL) 163 H 225 H 168 H (70-110) mg/dL 11/30/22 Range/Units 05:39 Chloride 109 H (98-107) mmol/L Carbon Dioxide 21 L (22-30) mmol/L POC Glucose (mg/dL) (70-110) mg/dL Assessment and Plan Plan: Assessment: 1. Acute kidney injury mostly prerenal secondary to hypovolemia. Creatinine 1.26 on admission - 0.71 today. UA benign. No hydronephrosis noted on CAT scan. Received IV contrast on 11/26/2022 for computed tomography scan and again on November 29 for cardiac catheterization. 2. Metabolic acidosis secondary to IV fluids as well as associated with history of proposed procedure and partial pancreatectomy. Also on metformin. Status post bicarb drip. Improved. 3. Coronary artery disease status post CABG. underwent cardiac stenting 11/29/2022. 4. Diabetes mellitus. 5. Benign hypertension. Stable. Plan: Hep-Lock IV fluids. Encouraged oral intake. Continue to monitor renal function and urine output. Repeat BMP magnesium level 2-3 days post discharge. Follow-up outpatient in 1 week.
--- NOTE | 2022-11-30 14:29 | P.PN ---
Subjective Progress Note Date: 11/30/22 Principal diagnosis: unintentional wt loss In follow-up today patient reports that his appetite came back yesterday, he is actually a quite a bit today. Denies fever, nausea, vomiting, acute changes in bowel habits. No pain to report Objective - Vital Signs Vital signs: Vital Signs Temp 97.7 F 11/30/22 08:20 Pulse 68 11/30/22 08:20 Resp 16 11/30/22 08:20 BP 121/64 11/30/22 08:20 Pulse Ox 97 11/30/22 08:37 FiO2 21 11/30/22 08:37 Intake & Output 11/29/22 11/30/22 11/30/22 18:59 06:59 18:59 Intake Total 790 Output Total 300 750 100 Balance 490 -750 -100 Weight 63.503 kg Intake: IV 435 Oral 355 Output: Urine 300 750 100 Other: Voiding Method Urinal Toilet Urinal # Voids 3 1 - Constitutional General appearance: Present: average body habitus, cooperative, no acute d istress - EENT Eyes: Present: anicteric sclerae, EOMI ENT: Present: hearing grossly normal - Respiratory Details: resp even and unlabored - Cardiovascular Details: skin warm and dry to touch - Integumentary Integumentary Comment(s): mult skin lesions on visible scalp - Neurologic Neurologic: Present: CNII-XII intact - Musculoskeletal Musculoskeletal: Present: strength equal bilaterally - Psychiatric Psychiatric: Present: A&O x's 3, appropriate affect, intact judgment & insight - Labs CBC & Chem 7: 11/28/22 07:44 11/30/22 05:39 Labs: Abnormal Lab Results - Last 24 Hours (Table) 11/26/22 11/29/22 11/29/22 Range/Units 17:03 13:54 17:03 Chloride (98-107) mmol/L Carbon Dioxide (22-30) mmol/L POC Glucose (mg/dL) 163 H 225 H (70-110) mg/dL Free Turney LC, Quant 4.16 H (0.33-1.94) mg/dL 11/29/22 11/30/22 Range/Units 19:35 05:39 Chloride 109 H (98-107) mmol/L Carbon Dioxide 21 L (22-30) mmol/L POC Glucose (mg/dL) 168 H (70-110) mg/dL Free Turney LC, Quant (0.33-1.94) mg/dL - Imaging and Cardiology CT scan - abdomen: report reviewed CT scan - chest: report reviewed CT scan - pelvis: report reviewed Assessment and Plan (1) Anemia Status: Acute Priority: Medium Code(s): D64.9 - ANEMIA, UNSPECIFIED SNOMED Code(s): 860068351 (2) Unintentional weight loss Status: Acute Priority: Medium Code(s): R63.4 - ABNORMAL WEIGHT LOSS SNOMED Code(s): 429572269 Plan: Anemia -Mild. -Likely related to recent change in oral intake. -No specific deficiency found on anemia workup -Hemoglobin has remained stable throughout visit, 11 range. No acute intervention. -Continue to monitor outpatient. Further workup if persistent or progressive Unintentional weight loss -CEA non-specifically elevated at 7.3. EGD and colonoscopy, negative for pathology -Reviewed with pt and family at bedside CT CAP results. No masses, suspicious findings or enhancing lesions -PSA <0.01 -Recommended to patient that he continue on follow-up with all of his doctors as prescribed. -Patient reports that after his Whipple in 2019 he initially lost about 30 pounds. He lost about another 20 pounds after recently being diagnosed with diabetes. Wt stabilized, reports he's gained about 9-10 pounds. He feels relieved that all the workup is had his negative. Patient reports that his appetite came back yesterday. Hopefully he will be able to continue to eat well. He will monitor his weight and report to his Primary Care Physician any acute changes.
[2022-12-01] MEDS ORDERED: metFORMIN 500 MG TAB PO SCH (11:00)
--- NOTE | 2022-12-02 09:32 | CDI ---
Documentation Clarification Form Date: 12/02/22 From: Melissa Baca Admit Date: 11/29/2022 12:13:00 PM Patient Name: Ravi Izquierdo Visit Number: [id number] Discharge Date: 11/30/2022 01:28:00 PM ATTENTION: The Clinical Documentation Specialists (CDI) and [facility] Coding Staff appreciate your assistance in clarifying documentation. Please respond to the clarification below the line at the bottom and electronically sign. The CDI & [facility] Coding staff will review the response and follow-up if needed. Please note: Queries are made part of the Legal Health Record. If you have any questions, please contact the author of this message via ITS. Dr. Olya Morrow, Moderate to severe calorie protein malnutrition is documented in the H&P. Additional clarification regarding the severity of malnutrition is requested. 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 30 lb weight loss in last 3 months. Current BMI: 20.7 NPO since admit, diet changing to Healthy Heart, energy formula for est 20.25 Kcal/Kg, 5305-3456 Kcal, Est protein 1.25 grams/Kg T Protein: 7.0, 6.1 Albumuin: 4.1, 3.5 Treatment: carbohydrate modified diet, commercial beverage, glucerna TID Please clarify the severity of malnutrition, if known: [ ] Mild Protein-Calorie Malnutrition [ ] Moderate Protein-Calorie Malnutrition [ y ] Severe Protein-Calorie Malnutrition [ ] Malnutrition, unknown severity [ ] Other condition, please specify [ ] Unable to Determine Reference: Using the ASPEN Guidelines, Undernutrition (Malnutrition) is characterized by at least two of the following six findings. The severity can be determined based on the criteria listed below. Malnutrition Characteristics for Moderate and Severe Malnutrition Type of Malnutrition Acute Illness or Injury Chronic Illness Degree of Malnutrition Non-severe (moderate) Malnutrition Severe Malnutrition Non-severe (moderate) Malnutrition Severe Malnutrition Energy Intake <75% for >7 days = 50% for = 5 days <75% for = 1 month =75% for = 1 month Weight Loss 1-2% in one week, 5% in 1 month, 7.5% in 3 months 2% in one week, >5% in 1 month, >7.5% in 3 months 5% in one month, 7.5% in 3 months, 10% in 6 months, 20% in 1 year >5% in one month, >7.5% in 3 months, >10% in 6 months, >20% in 1 year Body Fat Wasting Mild Moderate Mild Severe Muscle Wasting Mild Moderate Mild Severe Presence of Edema Mild Moderate to Severe 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 Consensus statement: Academy of Nutrition and Dietetics and [place] [employer] for Parenteral and Enteral Nutrition: characteristics recommended for the identification and documentation of adult malnutrition (undernutrition). DORY Lindo Parenter Enteral Nutr. 2012;36(3):275-283. MTDD
== END 2022-11-30 13:28 | disposition home or self-care (01) | DRG 246 ==
LOC: EC 09:11 → 6NMEDSUR 12:49 → OBSVTOIN 11-29 12:13
PROVIDERS: ADMIT Internal Medicine; ATTEND Internal Medicine
PROC: B41F1ZZ Fluoroscopy of Right Lower Extremity Arteries using Low Osmolar Contrast (ICD-10-PCS; principal; 2022-11-29 07:30)
PROC: 027034Z Dilation of Coronary Artery, One Artery with Drug-eluting Intraluminal Device, Percutaneous Approach (ICD-10-PCS; principal; 2022-11-29 07:30)
PROC: B2181ZZ Fluoroscopy of Left Internal Mammary Bypass Graft using Low Osmolar Contrast (ICD-10-PCS; 2022-11-29 07:30)
PROC: B2131ZZ Fluoroscopy of Multiple Coronary Artery Bypass Grafts using Low Osmolar Contrast (ICD-10-PCS; 2022-11-29 07:30)
PROC: 4A023N7 Measurement of Cardiac Sampling and Pressure, Left Heart, Percutaneous Approach (ICD-10-PCS; 2022-11-29 07:30)
PROC: B2111ZZ Fluoroscopy of Multiple Coronary Arteries using Low Osmolar Contrast (ICD-10-PCS; 2022-11-29 07:30)
DX: I25.719 Atherosclerosis of autologous vein coronary artery bypass graft(s) with unspecified angina pectoris (principal); E43 Unspecified severe protein-calorie malnutrition; N17.9 Acute kidney failure, unspecified; E87.20 Acidosis, unspecified; E11.22 Type 2 diabetes mellitus with diabetic chronic kidney disease; E11.36 Type 2 diabetes mellitus with diabetic cataract; D69.6 Thrombocytopenia, unspecified; N18.30 Chronic kidney disease, stage 3 unspecified; I70.0 Atherosclerosis of aorta; Z79.4 Long term (current) use of insulin; Z68.20 Body mass index [BMI] 20.0-20.9, adult; I25.119 Atherosclerotic heart disease of native coronary artery with unspecified angina pectoris; I12.9 Hypertensive chronic kidney disease with stage 1 through stage 4 chronic kidney disease, or unspecified chronic kidney disease; I25.84 Coronary atherosclerosis due to calcified coronary lesion; Z20.822 Contact with and (suspected) exposure to COVID-19; H26.9 Unspecified cataract; D50.9 Iron deficiency anemia, unspecified; E03.8 Other specified hypothyroidism; E78.5 Hyperlipidemia, unspecified; E86.0 Dehydration; E86.1 Hypovolemia; I44.5 Left posterior fascicular block; M17.12 Unilateral primary osteoarthritis, left knee; M10.9 Gout, unspecified; R35.0 Frequency of micturition; R33.9 Retention of urine, unspecified; R74.01 Elevation of levels of liver transaminase levels; Z79.82 Long term (current) use of aspirin; Z79.84 Long term (current) use of oral hypoglycemic drugs; Z79.85 Long-term (current) use of injectable non-insulin antidiabetic drugs; Z79.899 Other long term (current) drug therapy; Z95.1 Presence of aortocoronary bypass graft; Z95.5 Presence of coronary angioplasty implant and graft; Z85.07 Personal history of malignant neoplasm of pancreas; Z92.3 Personal history of irradiation; Z85.46 Personal history of malignant neoplasm of prostate; Z85.828 Personal history of other malignant neoplasm of skin; Z86.14 Personal history of Methicillin resistant Staphylococcus aureus infection; Z71.3 Dietary counseling and surveillance; Z88.1 Allergy status to other antibiotic agents; Z88.8 Allergy status to other drugs, medicaments and biological substances; Z82.49 Family history of ischemic heart disease and other diseases of the circulatory system
CPT/HCPCS: 36415; 51798; 71046; 71260; 74177; 76705; 78452; 80048; 80053; 81003; 82525; 82607; 82728; 82746; 82784; 83010; 83036; 83540; 83550; 83605; 83615; 83735; 83880; 83883; 83921; 84145; 84165; 84439; 84443; 84481; 84484; 85025; 85027; 85045; 85379; 85610; 85730; 86334; 87635; 93005; 93017; 93306; 93459; 93567; 94760; 96360; 96361; 99285

== ENCOUNTER → 2023-04-21 | Outpatient (CLI) | payer MEDICARE ==
[2023-04-21 11:22] LABS: ALT 71 U/L (10-49); AST 48 U/L (14-35); Albumin 3.7 g/dL (3.8-4.9); Albumin/Globulin Ratio 1.76 Ratio (1.60-3.17); Alkaline Phosphatase 91 U/L (41-126); BUN/Creat Ratio 19.44 Ratio (12.00-20.00); Blood Urea Nitrogen 17.5 mg/dL (9.0-27.0); Calcium 9.3 mg/dL (8.7-10.3); Carbon Dioxide 22.6 mmol/L (21.6-31.8); Chloride 110 mmol/L (96-109); Chol/HDL Ratio 1.69 Ratio; Globulin 2.1 g/dL (1.6-3.3); Glucose 132 mg/dL (70-110); LDL Cholesterol,Calculated 36.3 mg/dL (0.0-131.0); Potassium 4.5 mmol/L (3.5-5.5); Sodium 142 mmol/L (135-145); Total Bilirubin 0.4 mg/dL (0.3-1.2); Total Protein 5.8 g/dL (6.2-8.2); VLDL Calculation 12.02 mg/dL (5.00-40.00)
== END | disposition home or self-care (01) ==
LOC: LABWHC1 08:01
PROVIDERS: ATTEND Physician Assistant Medical
DX: E03.8 Other specified hypothyroidism (principal); E11.65 Type 2 diabetes mellitus with hyperglycemia
CPT/HCPCS: 36415; 80053; 80061; 82043; 82570; 84443

== ENCOUNTER 2023-08-16 06:59 | Inpatient (IN) | payer MEDICARE ==
[2023-08-16] MEDS: METOPROLOL TARTRATE 5 MG/5 ML VIAL IVP SCH (07:33)
[2023-08-16] MEDS: ASPIRIN 81 MG PO STA (07:35)
[2023-08-16 07:46] LABS: Basophils % (A) 0 %; Eosinophils # (A) 0.2 k/uL (0-0.7); Eosinophils % (A) 3 %; HCT 34.9 % (39.0-53.0); HGB 11.3 gm/dL (13.0-17.5); Hypochromasia Slight; INR 1.4 (<1.2); Lymphocytes # (A) 1.2 k/uL (1.0-4.8); Lymphocytes % (A) 15 %; MCH 29.5 pg (25.0-35.0); MCHC 32.3 g/dL (31.0-37.0); MCV 91.3 fL (80.0-100.0); Mean Platelet Volume 8.5; Monocytes # (A) 0.5 k/uL (0-1.0); Monocytes % (A) 6 %; Neutrophils # (A) 5.6 k/uL (1.3-7.7); Neutrophils % (A) 74 %; Partial Thromboplastin Time 29.3 sec (22.0-30.0); Platelet Count 163 k/uL (150-450); Prothrombin Time 14.7 sec (10.0-12.5); RBC 3.82 m/uL (4.30-5.90); RDW 14.6 % (11.5-15.5); WBC 7.6 k/uL (3.8-10.6)
--- NOTE | 2023-08-16 07:51 | ED ---
General Adult HPI - General Chief complaint: Shortness of Breath Stated complaint: Cardiac Arrhythmia, Weakness Time Seen by Provider: 08/16/23 07:20 Source: patient, RN notes reviewed, old records reviewed Mode of arrival: wheelchair Limitations: no limitations - History of Present Illness Initial comments: Patient is an 82-year-old male who presents emergency department complaining of shortness of breath. Has progressively gotten worse over the last few weeks. Has recently diagnosed atrial fibrillation in last few months. Is currently on Xarelto as well as metoprolol. Recently had reduced metoprolol dosing. He denies any chest pain, abdominal pain, nausea, vomiting. Endorses worsening orthopnea. Denies PND. Endorses exertional dyspnea. Endorses a dry cough. Endorses worsening lower extremity edema. Has a history of CABG, CAD, diabetes, hypertension as well. Presents for further evaluation at this time. States he has been compliant with all medications. Metoprolol dosing recently decreased from 50 mg to 25 mg last week. He has been compliant with his blood thinning medication, Xarelto. - Related Data Home Medications Medication Instructions Recorded Confirmed Aspirin 81 mg PO DAILY 08/23/16 08/16/23 Atorvastatin [Lipitor] 80 mg PO DAILY 08/23/16 08/16/23 Finasteride [Proscar] 5 mg PO DAILY 08/23/16 08/16/23 Losartan [Cozaar] 50 mg PO DAILY 08/23/16 08/16/23 Tamsulosin HCl [Flomax] 0.4 mg PO BID 08/23/16 08/16/23 allopurinoL [Zyloprim] 100 mg PO DAILY 08/23/16 08/16/23 Lipase/Protease/Amylase [Creon Dr 1 cap PO TID-W/MEALS 07/04/19 08/16/23 24,000 Unit Capsule] Sucralfate [Carafate] 1 gm PO HS 04/25/22 08/16/23 metFORMIN HCL 1,000 mg PO DAILY 04/25/22 08/16/23 Desmopressin Acetate [Ddavp] 0.1 mg PO HS 08/16/23 08/16/23 Furosemide [Lasix] 20 mg PO Q48H 08/16/23 08/16/23 Insulin Aspart [NovoLOG Flexpen] 3 units SQ AC-TID 08/16/23 08/16/23 Insulin Glargine,Hum.rec.anlog 8 units SQ DAILY 08/16/23 08/16/23 [Lantus Solostar Pen] Metoprolol Succinate (ER) [Toprol 25 mg PO DAILY 08/16/23 08/16/23 Xl] Rivaroxaban [Xarelto] 20 mg PO W/SUPPER 08/16/23 08/16/23 Spironolactone [Aldactone] 25 mg PO DAILY 08/16/23 08/16/23 Vibegron [Gemtesa] 75 mg PO HS 08/16/23 08/16/23 Zolpidem [Ambien] 5 mg PO HS PRN 08/16/23 08/16/23 amLODIPine [Norvasc] 2.5 mg PO DAILY 08/16/23 08/16/23 Previous Rx's Medication Instructions Recorded Nitroglycerin Sl Tabs [Nitrostat] 0.4 mg SUBLINGUAL Q5M PRN #25 tab 11/30/22 Allergies Allergy/AdvReac Type Severity Reaction Status Date / Time clarithromycin [From Biaxin] Allergy Rash/Hives,red Verified 08/16/23 08:36 skin clopidogrel [From Plavix] Allergy Rash/Hives,red Verified 08/16/23 08:36 skin Review of Systems ROS Statement: Those systems with pertinent positive or pertinent negative responses have been documented in the HPI. Review of Systems: CONST: Denies fever EYES: Denies blurry vision ENT: Denies nasal congestion C/V: Denies Chest pain RESP: Endorses shortness of breath GI: Denies abdominal pain : Denies dysuria SKIN: Denies rash. MSK: Denies joint pain. NEURO: Denies headache ROS Other: All systems not noted in ROS Statement are negative. Past Medical History Past Medical History: Atrial Fibrillation, Coronary Artery Disease (CAD), Cance r, Diabetes Mellitus, Eye Disorder, Hypertension, Osteoarthritis (OA) Additional Past Medical History / Comment(s): hx. prostate cancer-dx. 2013- recent elevation in PSA so currently had radiation(last treatment was 2017) here,cataracts, low cholesterol, Hx Gout. hx of recent ear infection with vertigo. Arthritis left knee. Dx with diabetes in April of 2022. History of Any Multi-Drug Resistant Organisms: MRSA Date of last positivie culture/infection: 2009 MDRO Source:: left foot Past Surgical History: Coronary Bypass/CABG, Heart Catheterization, Orthopedic Surgery Additional Past Surgical History / Comment(s): angie shoulder arthroscopy, whipple surgery-benign tumor-had partial pancreatectomy, cataracts removed bilaterally, Bypass 2003 X4 Past Anesthesia/Blood Transfusion Reactions: Motion Sickness, Postoperative N ausea & Vomiting (PONV) Additional Past Anesthesia/Blood Transfusion Reaction / Comment(s): No blood tranfusions Past Psychological History: No Psychological Hx Reported Smoking Status: Never smoker Past Alcohol Use History: None Reported Past Drug Use History: None Reported - Past Family History Mother Family Medical History: No Reported History Additional Family Medical History / Comment(s): , natural causes Father Family Medical History: Congestive Heart Failure (CHF) General Exam - General Exam Comments Initial Comments: General: Appears in no acute distress. HEAD: Normal with no signs of head trauma. EYES: PERRLA, EOMI, conjunctiva normal, no discharge. ENT: Hearing grossly intact, normal oropharynx. RESPIRATORY: Clear breath sounds bilaterally. No wheezes, rales, or rhonchi. No hypoxia. No significant increased work of breathing. C/V: Irregular rate and rhythm. S1 and S2 auscultated, symmetrical bilateral pitting edema of the lower extremities, peripheral pulses 2+ and intact throughout ABD: Abd is soft, nontender, nondistended EXT: Normal range of motion, no obvious deformity SKIN: No rashes or lesions observed on exposed skin. NEURO: Alert and oriented x 4. Limitations: no limitations Course Vital Signs 08/16/23 08/16/23 08/16/23 07:02 07:30 08:38 Temperature 97.6 F Pulse Rate 116 H 130 H 131 H Respiratory 20 16 20 Rate Blood Pressure 123/74 102/80 118/92 O2 Sat by Pulse 99 98 97 Oximetry 08/16/23 08/16/23 09:00 10:49 Temperature Pulse Rate 131 H 118 H Respiratory 20 20 Rate Blood Pressure 121/91 128/89 O2 Sat by Pulse 99 99 Oximetry Medical Decision Making - Medical Decision Making Was pt. sent in by a medical professional or institution (, PA, DRIVER MEDIC, urgent care, hospital, or halfway...) When possible be specific @ -No Did you speak to anyone other than the patient for history (EMS, parent, family, police, friend...)? What history was obtained from this source @ -No Did you review nursing and triage notes (agree or disagree)? Why? @ -I reviewed and agree with nursing and triage notes Were old charts reviewed (outside hosp., previous admission, EMS record, old EKG, old radiological studies, urgent care reports/EKG's, halfway records)? Report findings @ -Old charts reviewed Differential Diagnosis (chest pain, altered mental status, abdominal pain women, abdominal pain men, vaginal bleeding, weakness, fever, dyspnea, syncope, headache, dizziness, GI bleed, back pain, seizure, CVA, palpatations, mental hea lth, musculoskeletal)? @ -Differential Dyspnea: Coronary syndrome, arrhythmia, tamponade, asthma, COPD, pulmonary embolism, pneumonia, pneumothorax, pulmonary effusion, anaphylaxis, diabetic ketoacidosis, flailed chest, pulmonary contusion, diaphragmatic rupture, anemia, neuromuscular, this is not meant to be an all-inclusive list. EKG interpreted by me (3pts min.). @ -As above X-rays interpreted by me (1pt min.). @ -Chest x-ray shows findings consistent with pulmonary vascular congestion. CT interpreted by me (1pt min.). @ -None done U/S interpreted by me (1pt. min.). @ -None done What testing was considered but not performed or refused? (CT, X-rays, U/S, labs)? Why? @ -None What meds were considered but not given or refused? Why? @ -None Did you discuss the management of the patient with other professionals (professionals i.e. , PA, DRIVER MEDIC, lab, RT, psych nurse, social services aide, data conversion operator, teacher, community chest officer, case checker)? Give summary @ -I spoke with the admitting team, Dr. Sequeira who accepted the admission. Was smoking cessation discussed for >3mins.? @ -No Was critical care preformed (if so, how long)? @ -Yes, 32 minutes. Were there social determinants of health that impacted care today? How? (Homelessness, low income, unemployed, alcoholism, drug addiction, t ransportation, low edu. Level, literacy, decrease access to med. care, fci, rehab)? @ -No Was there de-escalation of care discussed even if they declined (Discuss DNR or withdrawal of care, Hospice)? DNR status @ -No What co-morbidities impacted this encounter? (DM, HTN, Smoking, COPD, CAD, Cance r, CVA, ARF, Chemo, Hep., AIDS, mental health diagnosis, sleep apnea, morbid obesity)? @ -Atrial fibrillation, CABG, hypertension, CAD Was patient admitted / discharged? Hospital course, mention meds given and route, prescriptions, significant lab abnormalities, going to OR and other pertinent info. @ -Based on patient's presentation and physical exam, presents with A-fib and RVR. Heart rates range anywhere from 115 to 160 bpm. Recently did have medication changes with his metoprolol, decreasing dose from 50 to 25 mg. This could be related to the current presentation but patient is also having clinical symptoms of congestive heart failure exacerbation with lower extremity edema, worsening orthopnea, worsening exertional dyspnea, dry cough. This has been more progressive. Therefore we will obtain cardiopulmonary workup. Patient will receive an aspirin as well as IV metoprolol. Vital signs otherwise within acceptable limits other than the rapid heart rate. Patient was in agreement this plan. EKG shows atrial fibrillation with RVR. No evidence of acute ischemia.Patient's imaging shows pulmonary vascular congestion. Laboratory studies remarkable for elevated troponin of 0.171, elevated BNP of 9500. Hypomagnesemia of 1.5 and hypokalemia 3.4. Magnesium potassium replenished. Patient is already on Xarelto, and already received aspirin. I updated the patient at this time. Patient has received multiple doses of metoprolol and heart rate is now improved, consistently between 105 and 120. Will continue to monitor but patient will be admitted for his A-fib with RVR and concern for CHF. He was in agreement this plan. We will trend the troponin. Echo ordered. I spoke with the admitting team, Dr. Sequeira who accepted the admission. Cardiology consulted. Undiagnosed new problem with uncertain prognosis? @ -No Drug Therapy requiring intensive monitoring for toxicity (Heparin, Nitro, Insulin, Cardizem)? @ -No Were any procedures done? @ -No Diagnosis/symptom? @ -A-fib with RVR, CHF, elevated troponin, hypokalemia, hypomagnesemia Acute, or Chronic, or Acute on Chronic? @ -Acute Uncomplicated (without systemic symptoms) or Complicated (systemic symptoms)? @ -Complicated Side effects of treatment? @ -None Exacerbation, Progression, or Severe Exacerbation] @ -No Poses a threat to life or bodily function? @ -Yes - Lab Data Result diagrams: 08/16/23 07:25 08/16/23 07:25 Lab Results 08/16/23 08/16/23 08/16/23 Range/Units 07:25 07:25 07:25 WBC 7.6 (3.8-10.6) k/uL RBC 3.82 L (4.30-5.90) m/uL Hgb 11.3 L (13.0-17.5) gm/dL Hct 34.9 L (39.0-53.0) % MCV 91.3 (80.0-100.0) fL MCH 29.5 (25.0-35.0) pg MCHC 32.3 (31.0-37.0) g/dL RDW 14.6 (11.5-15.5) % Plt Count 163 (150-450) k/uL MPV 8.5 Neutrophils % 74 % Lymphocytes % 15 % Monocytes % 6 % Eosinophils % 3 % Basophils % 0 % Neutrophils # 5.6 (1.3-7.7) k/uL Lymphocytes # 1.2 (1.0-4.8) k/uL Monocytes # 0.5 (0-1.0) k/uL Eosinophils # 0.2 (0-0.7) k/uL Basophils # 0.0 (0-0.2) k/uL Hypochromasia Slight PT 14.7 H (10.0-12.5) sec INR 1.4 H (<1.2) APTT 29.3 (22.0-30.0) sec Sodium 139 (137-145) mmol/L Potassium 3.4 L (3.5-5.1) mmol/L Chloride 112 H (98-107) mmol/L Carbon Dioxide 20 L (22-30) mmol/L Anion Gap 7 mmol/L BUN 19 (9-20) mg/dL Creatinine 0.84 (0.66-1.25) mg/dL Est GFR (CKD-EPI)AfAm >90 (>60 ml/min/1.73 sqM) Est GFR (CKD-EPI)NonAf 82 (>60 ml/min/1.73 sqM) Glucose 255 H (74-99) mg/dL Calcium 8.4 (8.4-10.2) mg/dL Magnesium 1.5 L (1.6-2.3) mg/dL Total Bilirubin 0.5 (0.2-1.3) mg/dL AST 73 H (17-59) U/L ALT 68 H (4-49) U/L Alkaline Phosphatase 114 (38-126) U/L Troponin I (0.000-0.034) ng/mL NT-Pro-B Natriuret Pep 9530 pg/mL Total Protein 5.8 L (6.3-8.2) g/dL Albumin 3.2 L (3.5-5.0) g/dL Urine Color Urine Appearance (Clear) Urine pH (5.0-8.0) Ur Specific [place] (1.001-1.035) Urine Protein (Negative) Urine Glucose (UA) (Negative) Urine Ketones (Negative) Urine Blood (Negative) Urine Nitrite (Negative) Urine Bilirubin (Negative) Urine Urobilinogen (<2.0) mg/dL Ur Leukocyte Esterase (Negative) Urine RBC (0-5) /hpf Urine WBC (0-5) /hpf Ur Squamous Epith Cells (0-4) /hpf Hyaline Casts (0-2) /lpf Urine Mucus (None) /hpf Influenza Type A (PCR) (Not Detectd) Influenza Type B (PCR) (Not Detectd) RSV (PCR) (Not Detectd) SARS-CoV-2 (PCR) (Not Detectd) 08/16/23 08/16/23 08/16/23 Range/Units 07:25 07:57 09:03 WBC (3.8-10.6) k/uL RBC (4.30-5.90) m/uL Hgb (13.0-17.5) gm/dL Hct (39.0-53.0) % MCV (80.0-100.0) fL MCH (25.0-35.0) pg MCHC (31.0-37.0) g/dL RDW (11.5-15.5) % Plt Count (150-450) k/uL MPV Neutrophils % % Lymphocytes % % Monocytes % % Eosinophils % % Basophils % % Neutrophils # (1.3-7.7) k/uL Lymphocytes # (1.0-4.8) k/uL Monocytes # (0-1.0) k/uL Eosinophils # (0-0.7) k/uL Basophils # (0-0.2) k/uL Hypochromasia PT (10.0-12.5) sec INR (<1.2) APTT (22.0-30.0) sec Sodium (137-145) mmol/L Potassium (3.5-5.1) mmol/L Chloride (98-107) mmol/L Carbon Dioxide (22-30) mmol/L Anion Gap mmol/L BUN (9-20) mg/dL Creatinine (0.66-1.25) mg/dL Est GFR (CKD-EPI)AfAm (>60 ml/min/1.73 sqM) Est GFR (CKD-EPI)NonAf (>60 ml/min/1.73 sqM) Glucose (74-99) mg/dL Calcium (8.4-10.2) mg/dL Magnesium (1.6-2.3) mg/dL Total Bilirubin (0.2-1.3) mg/dL AST (17-59) U/L ALT (4-49) U/L Alkaline Phosphatase (38-126) U/L Troponin I 0.171 H* (0.000-0.034) ng/mL NT-Pro-B Natriuret Pep pg/mL Total Protein (6.3-8.2) g/dL Albumin (3.5-5.0) g/dL Urine Color Colorless Urine Appearance Clear (Clear) Urine pH 5.5 (5.0-8.0) Ur Specific [place] 1.013 (1.001-1.035) Urine Protein 1+ H (Negative) Urine Glucose (UA) Negative (Negative) Urine Ketones Negative (Negative) Urine Blood Negative (Negative) Urine Nitrite Negative (Negative) Urine Bilirubin Negative (Negative) Urine Urobilinogen <2.0 (<2.0) mg/dL Ur Leukocyte Esterase Negative (Negative) Urine RBC 3 (0-5) /hpf Urine WBC 1 (0-5) /hpf Ur Squamous Epith Cells <1 (0-4) /hpf Hyaline Casts 11 H (0-2) /lpf Urine Mucus Rare H (None) /hpf Influenza Type A (PCR) Not Detected (Not Detectd) Influenza Type B (PCR) Not Detected (Not Detectd) RSV (PCR) Not Detected (Not Detectd) SARS-CoV-2 (PCR) Not Detected (Not Detectd) - EKG Data -: EKG Interpreted by Me EKG Comments: 12-lead Electrocardiogram Interpretation Note EKG was reviewed and interpreted by myself. 12-lead ECG performed at 0711 is interpreted by me as revealing atrial fibrillation with RVR, right bundle branch block morphology at a rate of 143 beats per minute. Indeterminate axis. QRS duration is 133 ms, QTc is 409 ms.. There were no ST or T wave abnormalities to suggest myocardial ischemia or injury. R wave progression across the precordium was satisfactory. By my interpretation this EKG is non-diagnostic for acute ischemia. Disposition Clinical Impression: Atrial fibrillation with RVR, CHF (congestive heart failure), Hypokalemia, Hypomagnesemia Disposition: ADMITTED IP TO THIS HOSP Condition: Serious Time of Disposition: 09:22
[2023-08-16 07:55] LABS: ALT 68 U/L (4-49); AST 73 U/L (17-59); African American GFR (CKD) >90 (>60 ml/min/1.73 sqM); Albumin 3.2 g/dL (3.5-5.0); Alkaline Phosphatase 114 U/L (38-126); Anion Gap 7 mmol/L; Blood Urea Nitrogen 19 mg/dL (9-20); Calcium 8.4 mg/dL (8.4-10.2); Carbon Dioxide 20 mmol/L (22-30); Chloride 112 mmol/L (98-107); Glucose 255 mg/dL (74-99); Magnesium 1.5 mg/dL (1.6-2.3); Non-African American GFR(CKD) 82 (>60 ml/min/1.73 sqM); Potassium 3.4 mmol/L (3.5-5.1); Sodium 139 mmol/L (137-145); Total Bilirubin 0.5 mg/dL (0.2-1.3); Total Protein 5.8 g/dL (6.3-8.2)
[2023-08-16 08:03] LABS: NT-Pro-B-Type Natriuretic Pept 9530 pg/mL
--- NOTE | 2023-08-16 08:09 | XR ---
EXAMINATION TYPE: XR chest 2V DATE OF EXAM: 08/16/2023 COMPARISON: 11/25/2022 HISTORY: 82 year-old male shortness of breath, difficulty breathing TECHNIQUE: PA and lateral views FINDINGS: Median sternotomy wires are present post CABG clips. Heart borderline enlarged. Mild increased centra l interstitial/perihilar density. Mild hyperinflation. Patchy posterior basilar opacity on the latera l view. IMPRESSION: 1. Borderline heart size. 2. Slight increase in subtle interstitial density. This could reflect mild pulmonary vascular congest ion versus bronchitis or asthma. 3. Some patchy posterior basilar atelectasis versus developing infiltrate. Correlate with symptoms.
[2023-08-16] MEDS: LORazepam 1 MG TAB PO STA (08:18)
[2023-08-16] MEDS: METOPROLOL TARTRATE 25 MG TAB PO STA ×2 (08:18→11:34)
[2023-08-16] MEDS: FUROSEMIDE 10 MG/ML 4 ML VIAL IV STA (08:21)
[2023-08-16] MEDS: POTASSIUM CHLORIDE ER 20 MEQ TAB.ER PO STA (08:27)
[2023-08-16] MEDS: MAGNESIUM SULFATE-D5W PMX 1 GM in DEXTROSE/WATER 1 100ML.BAG IVPB ONE (08:27)
[2023-08-16] MEDS ORDERED: NALOXONE 0.4 MG/ML 1 ML VIAL IV PRN (09:15)
[2023-08-16 09:44] LABS: Appearance,Urine Clear (Clear); Bilirubin,Urine Negative (Negative); Blood,Urine Negative (Negative); Color,Urine Colorless; Glucose,Urine (UA) Negative (Negative); Hyaline Casts,Urine 11 /lpf (0-2); Ketones,Urine Negative (Negative); Leukocyte Esterase,Urine Negative (Negative); Mucus,Urine Rare /hpf; Nitrite,Urine Negative (Negative); PH, Urine 5.5 (5.0-8.0); Protein,Urine 1+ (Negative); RBC,Urine 3 /hpf (0-5); Specific Gravity,Urine 1.013 (1.001-1.035); Squamous Epithelial Cell,Urine <1 /hpf (0-4); Urobilinogen,Urine <2.0 mg/dL (<2.0); WBC,Urine 1 /hpf (0-5)
[2023-08-16] MEDS: METOPROLOL TARTRATE 5 MG/5 ML VIAL IVP STA (10:48)
[2023-08-16] MEDS ORDERED: DEXTROSE 50% SYRINGE 50 ML IVP PRN ×2 (14:15)
--- NOTE | 2023-08-16 14:15 | P.HPIM ---
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 He claims that he was recently in [place] when he started having palpitations and shortness of breath. He was diagnosed with atrial fibrillation with RVR. He was then started on new rate control agents along with Xarelto. Over the last 1 week or so he has been having increased shortness of breath with exertion, also noticing some orthopnea, increased lower extremity swelling. He denies any cough, chest pain, palpitations, lightheadedness, abdominal pain, urinary or bowel complaints. He denies any recent sick contacts. In the ED, temperature was 97.6, pulse 116, respiratory rate 20, blood pressure 123/74, saturating at 99% on room air. WBC 7.6, hemoglobin 11.3, potassium 3.4, bicarb 20, creatinine 0.84, magnesium 1.5, glucose 255, AST 73, ALT 68, ALP 114, troponin 0.171, proBNP 9500, urinalysis negative, respiratory viral panel negative. EKG shows atrial fibrillation with RVR, right bundle branch block. Chest x-ray independently interpreted, shows mild pulmonary vascular congestion. Cardiology consulted. Patient being admitted for CHF exacerbation and A-fib RVR. Given IV Lasix in the ED, IV metoprolol. Pertinent positives and negatives as discussed in HPI, a complete review of sy stems was performed and all other systems are negative. Patient seen and examined at bedside. Vital signs reviewed General: nontoxic, no distress, appears at stated age Derm: warm, dry Head: atraumatic, normocephalic, symmetric Eyes: EOMI, no lid lag, anicteric sclera, pupils equal round reactive to light ENT: Nose and ears atraumatic Neck: No thyromegaly, supple Mouth: no lip lesion, mucus membranes moist Cardiovascular: S1S2 irregular, tachycardic, no murmur, 2+ pitting edema Lungs: Bibasilar rales, no wheeze, no accessory muscle use Abdominal: soft, nontender to palpation, no guarding, no appreciable organomegaly Ext: no gross muscle atrophy, muscle strength muscle strength 5 out of 5 in all 4 extremities, no contractures Neuro: CN II-XII grossly intact Psych: Alert, oriented, appropriate affect Assessment/Plan: Active: Acute CHF exacerbation, unknown EF Atrial fibrillation with RVR NSTEMI, likely type II -On 40 of IV Lasix every 12 hours, monitor renal function and electrolytes -Daily weights and intake and output -On 75 mg of oral metoprolol, continue home Xarelto 20 mg -Continue to monitor on telemetry Hypokalemia Hypomagnesemia -Given 40 mEq of oral potassium, 1 g of IV magnesium sulfate in the ED -Repeat BMP and magnesium tomorrow Insulin-dependent diabetes -Continue home Lantus 8 units, insulin aspart 3 units 3 times daily, sliding scale insulin, monitor for hypoglycemia Unclear why patient is on desmopressin Chronic: History of prostate cancer status postradiation History of pancreatic benign mass, status post Whipple surgery Hypertension Dyslipidemia The patient is admitted with an anticipated greater than 2 midnight stay as inpatient status for evaluation of CHF exacerbation. Surrogate decision-maker: Spouse CODE STATUS: Full code DVT prophylaxis: Xarelto Anticipated discharge date: Pending clinical course Anticipated discharge place: Pending clinical course A total of 55 minutes was spent on the care of this complex patient more than 50% of the time was spent in counseling and care coordination. Past Medical History Past Medical History: Atrial Fibrillation, Coronary Artery Disease (CAD), Cancer, Diabetes Mellitus, Eye Disorder, Hypertension, Osteoarthritis (OA) Additional Past Medical History / Comment(s): hx. prostate cancer-dx. 2013- recent elevation in PSA so currently had radiation(last treatment was 2017) here,cataracts, low cholesterol, Hx Gout. hx of recent ear infection with vertigo. Arthritis left knee. Dx with diabetes in April of 2022. History of Any Multi-Drug Resistant Organisms: MRSA Date of last positivie culture/infection: 2008 MDRO Source:: left foot Past Surgical History: Coronary Bypass/CABG, Heart Catheterization, Orthopedic Surgery Additional Past Surgical History / Comment(s): angie shoulder arthroscopy, whipple surgery-benign tumor-had partial pancreatectomy, cataracts removed bilaterally, Bypass 2002 X4 Past Anesthesia/Blood Transfusion Reactions: Motion Sickness, Postoperative Nausea & Vomiting (PONV) Additional Past Anesthesia/Blood Transfusion Reaction / Comment(s): No blood tranfusions Past Psychological History: No Psychological Hx Reported Smoking Status: Never smoker Past Alcohol Use History: None Reported Past Drug Use History: None Reported - Past Family History Mother Family Medical History: No Reported History Additional Family Medical History / Comment(s): , natural causes Father Family Medical History: Congestive Heart Failure (CHF) Medications and Allergies Home Medications Medication Instructions Recorded Confirmed Type Aspirin 81 mg PO DAILY 08/23/16 08/16/23 History Atorvastatin [Lipitor] 80 mg PO DAILY 08/23/16 08/16/23 History Finasteride [Proscar] 5 mg PO DAILY 08/23/16 08/16/23 History Losartan [Cozaar] 50 mg PO DAILY 08/23/16 08/16/23 History Tamsulosin HCl [Flomax] 0.4 mg PO BID 08/23/16 08/16/23 History allopurinoL [Zyloprim] 100 mg PO DAILY 08/23/16 08/16/23 History Lipase/Protease/Amylase [Creon Dr 1 cap PO TID-W/MEALS 07/04/19 08/16/23 History 24,000 Unit Capsule] Sucralfate [Carafate] 1 gm PO HS 04/25/22 08/16/23 History metFORMIN HCL 1,000 mg PO DAILY 04/25/22 08/16/23 History Nitroglycerin Sl Tabs [Nitrostat] 0.4 mg SUBLINGUAL Q5M PRN #25 tab 11/30/22 08/16/23 Rx Desmopressin Acetate [Ddavp] 0.1 mg PO HS 08/16/23 08/16/23 History Furosemide [Lasix] 20 mg PO Q48H 08/16/23 08/16/23 History Insulin Aspart [NovoLOG Flexpen] 3 units SQ AC-TID 08/16/23 08/16/23 History Insulin Glargine,Hum.rec.anlog 8 units SQ DAILY 08/16/23 08/16/23 History [Lantus Solostar Pen] Metoprolol Succinate (ER) [Toprol 25 mg PO DAILY 08/16/23 08/16/23 History Xl] Rivaroxaban [Xarelto] 20 mg PO W/SUPPER 08/16/23 08/16/23 History Spironolactone [Aldactone] 25 mg PO DAILY 08/16/23 08/16/23 History Vibegron [Gemtesa] 75 mg PO HS 08/16/23 08/16/23 History Zolpidem [Ambien] 5 mg PO HS PRN 08/16/23 08/16/23 History amLODIPine [Norvasc] 2.5 mg PO DAILY 08/16/23 08/16/23 History Allergies Allergy/AdvReac Type Severity Reaction Status Date / Time clarithromycin [From Biaxin] Allergy Rash/Hives,red Verified 08/16/23 08:36 skin clopidogrel [From Plavix] Allergy Rash/Hives,red Verified 08/16/23 08:36 skin Physical Exam Vitals: Vital Signs Temp Pulse Resp BP Pulse Ox 08/16/23 10:49 118 H 20 128/89 99 08/16/23 09:00 131 H 20 121/91 99 08/16/23 08:38 131 H 20 118/92 97 08/16/23 07:30 130 H 16 102/80 98 08/16/23 07:02 97.6 F 116 H 20 123/74 99 Intake and Output 08/15/23 08/16/23 08/16/23 22:59 06:59 14:59 Other: Weight 73.482 kg Results CBC & Chem 7: 08/16/23 07:25 08/16/23 07:25 Labs: Abnormal Lab Results - Last 24 Hours (Table) 08/16/23 08/16/23 08/16/23 Range/Units 07:25 07:25 07:25 RBC 3.82 L (4.30-5.90) m/uL Hgb 11.3 L (13.0-17.5) gm/dL Hct 34.9 L (39.0-53.0) % PT 14.7 H (10.0-12.5) sec INR 1.4 H (<1.2) Potassium 3.4 L (3.5-5.1) mmol/L Chloride 112 H (98-107) mmol/L Carbon Dioxide 20 L (22-30) mmol/L Glucose 255 H (74-99) mg/dL Magnesium 1.5 L (1.6-2.3) mg/dL AST 73 H (17-59) U/L ALT 68 H (4-49) U/L Troponin I (0.000-0.034) ng/mL Total Protein 5.8 L (6.3-8.2) g/dL Albumin 3.2 L (3.5-5.0) g/dL Urine Protein (Negative) Hyaline Casts (0-2) /lpf Urine Mucus (None) /hpf 08/16/23 08/16/23 08/16/23 Range/Units 07:25 09:03 12:02 RBC (4.30-5.90) m/uL Hgb (13.0-17.5) gm/dL Hct (39.0-53.0) % PT (10.0-12.5) sec INR (<1.2) Potassium (3.5-5.1) mmol/L Chloride (98-107) mmol/L Carbon Dioxide (22-30) mmol/L Glucose (74-99) mg/dL Magnesium (1.6-2.3) mg/dL AST (17-59) U/L ALT (4-49) U/L Troponin I 0.171 H* 0.191 H* (0.000-0.034) ng/mL Total Protein (6.3-8.2) g/dL Albumin (3.5-5.0) g/dL Urine Protein 1+ H (Negative) Hyaline Casts 11 H (0-2) /lpf Urine Mucus Rare H (None) /hpf
[2023-08-16] MEDS: METOPROLOL SUCCINATE (ER) 25 MG TAB.ER.24H PO STA (15:03)
[2023-08-16 16:54] LABS: Glucose,Whole Blood 258 mg/dL (70-110)
[2023-08-16] MEDS: INSULIN ASPART (NovoLOG) 100 UNIT/ML VIAL SQ SCH ×2 (17:29)
[2023-08-16] MEDS: RIVAROXABAN 20 MG TAB PO SCH (17:30)
[2023-08-16] MEDS: LIPASE 20,000/PROTEASE 63,000/AMYLASE 84,000 PO SCH (17:31)
[2023-08-16] MEDS: DILTIAZEM 125 MG in SODIUM CHLORIDE 0.9% 100 ML IV SCH ×2 (17:32→18:50)
[2023-08-16] MEDS: DILTIAZEM DRIP BOLUS FROM BAG 1 MG SOLN IV ONE (18:50)
[2023-08-16 20:26] LABS: Glucose,Whole Blood 191 mg/dL (70-110)
[2023-08-16] MEDS: FUROSEMIDE 10 MG/ML 4 ML VIAL IV SCH (20:45)
[2023-08-16] MEDS: TAMSULOSIN 0.4 MG CAP.ER.24H PO SCH (20:48)
[2023-08-16] MEDS: SUCRALFATE 1 GM TAB PO SCH (20:48)
[2023-08-16] MEDS: DESMOPRESSIN 0.2 MG TAB PO SCH (20:49)
[2023-08-16] MEDS: NON FORMULARY DRUG (Vibegron [Gemtesa] 75 MG Tablet) PO SCH (20:52)
[2023-08-16] MEDS: ZOLPIDEM 5 MG TAB PO PRN (21:19)
--- NOTE | 2023-08-17 08:26 | P.CRDCN ---
History of Present Illness Consult date: 08/17/23 Reason for Consult (text): NSTEMI History of present illness: History of present illness: This is an 82-year-old male who follows with Dr. Starkey at [facility] with past medical history of coronary artery disease status post four-vessel CABG in 2002, hypertension, history of prostate cancer, history of pancreatic mass status post Whipple procedure, paroxysmal atrial fibrillation. We have been asked to evaluate the patient for elevated troponins. Patient gives history that he was in [place] about a month ago had a first episode of atrial fibrillation and was tried on medication and then underwent ELIZABETH with EF of 30% followed by successful electrocardioversion. He has not been feeling well since then with shortness of breath, weakness. He had a follow-up appointment with his primary telegraph mechanic, Dr. Starkey, on Tuesday and he recommended proceeding with echocardiogram and cardiac catheterization. At that office visit, patient was not in atrial fibrillation. Yesterday morning, patient states he had terrible shortness of breath but did not feel any palpitations. He has also noticed increased lower extremity edema. Patient was found to be in A-fib with RVR and has been running consistently in the 130s to 140s. He is on a Cardizem drip at 15 mg. He has been on Xarelto since his episode of atrial fibrillation and has not missed any doses. Patient is seen today in the emergency center waiting for bed on the cardiac stepdown unit. Patient has been started on Cardizem drip and maintained on Xarelto. Discussed options with the patient and Dr. Jose contacted Dr. Starkey as well. EKG atrial fibrillation with RVR, ventricular rate of 143 Chest x-ray: Borderline heart size. Slight increase in subtle interstitial density could reflect pulmonary vascular congestion versus bronchitis or asthma. Some patchy posterior basilar atelectasis versus infiltrate. WBC 7.6, hemoglobin 11.3. INR 1.4. Sodium 139, potassium 3.4, BUN 19 creatinine 0.84. Blood sugar 255. Troponins 0.171, 0.191, 0.218. proBNP 9530. Influenza A, influenza B, RSV, COVID-19 not detected. Home cardiac medications: Amlodipine 2.5 mg daily, aspirin 81 mg daily, Lipitor 80 mg daily, finasteride 5 mg daily, Lasix 20 mg every 48 hours, losartan 50 mg daily, Toprol XL 25 mg daily, Nitrostat as needed, Xarelto 20 mg with supper, Aldactone 25 mg daily. Cardiac catheterization performed 11/29/[address] Antoinette Negron revealed [place] three -vessel coronary artery disease. Patent TRONCOSO to LAD, patent venous graft to the right coronary artery, occluded venous graft and fourth graft is visualized on the right coronary artery. Patient subsequently underwent successful stenting of the SVG to the diagonal by Dr. Maya. Echocardiogram performed on 11/25/2022 revealed mild LV systolic dysfunction with EF of 45 to 50%, aortic sclerosis without significant stenosis. Review Of Systems: At the time of my exam: CONSTITUTIONAL: Denies fever or chills. Reports generalized fatigue and weakness. HEENT: Denies blurred vision, vision changes, or eye pain. Denies hemoptysis CARDIOVASCULAR: Denies chest pain. Denies orthopnea. Denies PND. Denies palpitations RESPIRATORY: Reports shortness of breath. GASTROINTESTINAL: Denies abdominal pain. Denies nausea or vomiting. HEMATOLOGIC: Denies bleeding disorders. GENITOURINARY: Denies any blood in urine. SKIN: Denies pruitis. Denies rash. Physical examination: Gen: This is an 82-year-old male in no acute distress. VS: reviewed, blood pressure 111/78, heart rate 141. HEENT: Head is atraumatic, normocephalic. Pupils equal, round. Sclerae is anicteric. NECK: Supple. No JVD. LUNGS: Clear to auscultation. No wheezes or rhonchi. No intercostal retractions. HEART: Irregular rate and rhythm. No murmur. ABDOMEN: Soft No tenderness. EXTREMITIES: 12+ pedal edema. No calf tenderness. NEUROLOGICAL: Patient is awake, alert and oriented x3. Assessment: Paroxysmal atrial fibrillation with RVR Non-ST elevated myocardial infarction Coronary artery disease with history of four-vessel bypass and stent of the SVG to the diagonal Hypertension History of Whipple procedure History of prostate cancer Mild elevation in AST and ALT Plan: Resume patient's home cardiac medications Continue patient on Cardizem drip Start patient on amiodarone bolus followed by drip per protocol Schedule patient for electrocardioversion today with Dr. Jose Obtain 2-D echocardiogram and Doppler report Plan for for cardiac catheterization tomorrow Further recommendations to follow based upon clinical course Thank you kindly for this consultation. Nurse practitioner note has been reviewed, I agree with documented findings and plan of care. Patient was seen and examined. Past Medical History Past Medical History: Atrial Fibrillation, Coronary Artery Disease (CAD), Cancer, Diabetes Mellitus, Eye Disorder, Hypertension, Osteoarthritis (OA) Additional Past Medical History / Comment(s): hx. prostate cancer-dx. 2013- recent elevation in PSA so currently had radiation(last treatment was 2017) here,cataracts, low cholesterol, Hx Gout. hx of recent ear infection with vertigo. Arthritis left knee. Dx with diabetes in April of 2022. History of Any Multi-Drug Resistant Organisms: MRSA Date of last positivie culture/infection: 2008 MDRO Source:: left foot Past Surgical History: Coronary Bypass/CABG, Heart Catheterization, Orthopedic Surgery Additional Past Surgical History / Comment(s): angie shoulder arthroscopy, whipple surgery-benign tumor-had partial pancreatectomy, cataracts removed bilaterally, Bypass 2002 X4 Past Anesthesia/Blood Transfusion Reactions: Motion Sickness, Postoperative Nausea & Vomiting (PONV) Additional Past Anesthesia/Blood Transfusion Reaction / Comment(s): No blood tranfusions Past Psychological History: No Psychological Hx Reported Smoking Status: Never smoker Past Alcohol Use History: None Reported Past Drug Use History: None Reported - Past Family History Mother Family Medical History: No Reported History Additional Family Medical History / Comment(s): , natural causes Father Family Medical History: Congestive Heart Failure (CHF) Medications and Allergies Home Medications Medication Instructions Recorded Confirmed Type Aspirin 81 mg PO DAILY 08/23/16 08/16/23 History Atorvastatin [Lipitor] 80 mg PO DAILY 08/23/16 08/16/23 History Finasteride [Proscar] 5 mg PO DAILY 08/23/16 08/16/23 History Losartan [Cozaar] 50 mg PO DAILY 08/23/16 08/16/23 History Tamsulosin HCl [Flomax] 0.4 mg PO BID 08/23/16 08/16/23 History allopurinoL [Zyloprim] 100 mg PO DAILY 08/23/16 08/16/23 History Lipase/Protease/Amylase [Creon Dr 1 cap PO TID-W/MEALS 07/04/19 08/16/23 History 24,000 Unit Capsule] Sucralfate [Carafate] 1 gm PO HS 04/25/22 08/16/23 History metFORMIN HCL 1,000 mg PO DAILY 04/25/22 08/16/23 History Nitroglycerin Sl Tabs [Nitrostat] 0.4 mg SUBLINGUAL Q5M PRN #25 tab 11/30/22 08/16/23 Rx Desmopressin Acetate [Ddavp] 0.1 mg PO HS 08/16/23 08/16/23 History Furosemide [Lasix] 20 mg PO Q48H 08/16/23 08/16/23 History Insulin Aspart [NovoLOG Flexpen] 3 units SQ AC-TID 08/16/23 08/16/23 History Insulin Glargine,Hum.rec.anlog 8 units SQ DAILY 08/16/23 08/16/23 History [Lantus Solostar Pen] Metoprolol Succinate (ER) [Toprol 25 mg PO DAILY 08/16/23 08/16/23 History Xl] Rivaroxaban [Xarelto] 20 mg PO W/SUPPER 08/16/23 08/16/23 History Spironolactone [Aldactone] 25 mg PO DAILY 08/16/23 08/16/23 History Vibegron [Gemtesa] 75 mg PO HS 08/16/23 08/16/23 History Zolpidem [Ambien] 5 mg PO HS PRN 08/16/23 08/16/23 History amLODIPine [Norvasc] 2.5 mg PO DAILY 08/16/23 08/16/23 History Allergies Allergy/AdvReac Type Severity Reaction Status Date / Time clarithromycin [From Biaxin] Allergy Rash/Hives,red Verified 08/16/23 08:36 skin clopidogrel [From Plavix] Allergy Rash/Hives,red Verified 08/16/23 08:36 skin Physical Exam Vitals: Vital Signs Temp Pulse Resp BP Pulse Ox 08/17/23 06:00 122 H 16 104/80 08/17/23 05:00 93 18 103/91 08/17/23 04:00 97 18 121/76 08/17/23 03:30 94 131/76 08/17/23 03:00 98 20 119/87 08/17/23 02:00 123 H 19 115/89 08/17/23 01:00 125/98 08/17/23 00:00 118 H 16 138/74 08/16/23 23:36 18 138/74 08/16/23 23:00 134 H 18 133/98 08/16/23 22:00 123/96 08/16/23 21:21 120 H 16 118/89 08/16/23 18:52 97.5 F L 96 18 121/89 96 08/16/23 18:46 133 H 18 113/75 95 08/16/23 17:27 136 H 18 135/81 94 L 08/16/23 15:30 92 L 08/16/23 15:04 134 H 18 139/89 98 08/16/23 10:49 118 H 20 128/89 99 08/16/23 09:00 131 H 20 121/91 99 08/16/23 08:38 131 H 20 118/92 97 Intake and Output 08/16/23 08/17/23 08/17/23 22:59 06:59 14:59 Intake Total 107.75 Balance 107.75 Intake: Intake, IV Titration 107.75 Amount Diltiazem 125 mg In 107.75 Sodium Chloride 0.9% 100 ml @ 15 MG/HR 15 mls/hr IV .Q8H20M [facility] Rx#: [id number] Results 08/16/23 07:25 08/16/23 07:25 Cardiac Enzymes 08/16/23 08/16/23 08/16/23 Range/Units 07:25 07:25 12:02 AST 73 H (17-59) U/L Troponin I 0.171 H* 0.191 H* (0.000-0.034) ng/mL 08/16/23 Range/Units 15:00 AST (17-59) U/L Troponin I 0.218 H* (0.000-0.034) ng/mL Coagulation 08/16/23 Range/Units 07:25 PT 14.7 H (10.0-12.5) sec APTT 29.3 (22.0-30.0) sec CBC 08/16/23 Range/Units 07:25 WBC 7.6 (3.8-10.6) k/uL RBC 3.82 L (4.30-5.90) m/uL Hgb 11.3 L (13.0-17.5) gm/dL Hct 34.9 L (39.0-53.0) % Plt Count 163 (150-450) k/uL Comprehensive Metabolic Panel 08/16/23 Range/Units 07:25 Sodium 139 (137-145) mmol/L Potassium 3.4 L (3.5-5.1) mmol/L Chloride 112 H (98-107) mmol/L Carbon Dioxide 20 L (22-30) mmol/L BUN 19 (9-20) mg/dL Creatinine 0.84 (0.66-1.25) mg/dL Glucose 255 H (74-99) mg/dL Calcium 8.4 (8.4-10.2) mg/dL AST 73 H (17-59) U/L ALT 68 H (4-49) U/L Alkaline Phosphatase 114 (38-126) U/L Total Protein 5.8 L (6.3-8.2) g/dL Albumin 3.2 L (3.5-5.0) g/dL Current Medications Generic Name Dose Route Start Last Admin Trade Name Freq PRN Reason Stop Dose Admin Allopurinol 100 mg 08/17/23 09:00 Allopurinol 100 Mg Tab PO DAILY DAMARI Amlodipine Besylate 2.5 mg 08/17/23 09:00 Amlodipine 2.5 Mg Tab PO DAILY DAMARI Lipase/Protease/Amylase 1 each 08/16/23 17:30 08/16/23 17:31 Lipase 20,000/Protease 63,000/Amylase 84,000 PO 1 each TID-W/MEALS DAMARI Administration Aspirin 81 mg 08/17/23 09:00 Aspirin 81 Mg PO DAILY DAMARI Atorvastatin Calcium 80 mg 08/17/23 09:00 Atorvastatin 80 Mg Tab PO DAILY DAMARI Desmopressin Acetate 0.1 mg 08/16/23 21:00 08/16/23 20:49 Desmopressin 0.2 Mg Tab PO 0.1 mg HS DAMARI Administration Dextrose/Water 25 ml 08/16/23 14:15 Dextrose 50% Syringe 50 Ml IVP PER PROTOCOL PRN Hypoglycemia Protocol Dextrose/Water 50 ml 08/16/23 14:15 Dextrose 50% Syringe 50 Ml IVP PER PROTOCOL PRN Hypoglycemia Protocol Finasteride 5 mg 08/17/23 09:00 Finasteride 5 Mg Tab PO DAILY DAMARI Furosemide 40 mg 08/16/23 21:00 08/16/23 20:45 Furosemide 10 Mg/Ml 4 Ml Vial IV 40 mg Q12HR DAMARI Administration Diltiazem HCl 125 mg/ Sodium 125 mls @ 15 mls/hr 08/16/23 18:30 08/17/23 02:01 Chloride IV 15 mg/hr .Q8H20M DAMARI 15 mls/hr Administration 15 MG/HR Insulin Aspart 3 unit 08/16/23 17:30 08/16/23 17:29 Insulin Aspart (Novolog) 100 Unit/Ml Vial SQ 3 unit AC-TID DAMARI Administration Insulin Aspart 0 unit 08/16/23 17:30 08/16/23 20:50 Insulin Aspart (Novolog) 100 Unit/Ml Vial SQ 1 unit ACHS DAMARI Administration Protocol Insulin Detemir 8 unit 08/17/23 07:00 Insulin Detemir (Levemir) 100 Unit/Ml Syr SQ DAILY@0700 [facility] Losartan Potassium 50 mg 08/17/23 09:00 Losartan 25 Mg Tab PO DAILY [facility] Metoprolol Succinate 75 mg 08/17/23 09:00 Metoprolol Succinate (Er) 25 Mg Tab.Er.24h PO DAILY [facility] Naloxone HCl 0.2 mg 08/16/23 09:15 Naloxone 0.4 Mg/Ml 1 Ml Vial IV Q2M PRN Opioid Reversal Non-Formulary Medication 75 mg 08/16/23 21:00 08/16/23 20:52 Vibegron [Gemtesa] PO Not Given HS [facility] Rivaroxaban 20 mg 08/16/23 17:30 08/16/23 17:30 Rivaroxaban 20 Mg Tab PO 20 mg W/SUPPER DAMARI Administration Protocol Spironolactone 25 mg 08/17/23 09:00 Spironolactone 25 Mg Tab PO DAILY [facility] Sucralfate 1 gm 08/16/23 21:00 08/16/23 20:48 Sucralfate 1 Gm Tab PO 1 gm HS DAMARI Administration Tamsulosin HCl 0.4 mg 08/16/23 21:00 08/16/23 20:48 Tamsulosin 0.4 Mg Cap.Er.24h PO 0.4 mg BID DAMARI Administration Zolpidem Tartrate 5 mg 08/16/23 09:20 08/16/23 21:19 Zolpidem 5 Mg Tab PO 5 mg HS PRN Administration Insomnia Intake and Output 08/16/23 08/17/23 08/17/23 22:59 06:59 14:59 Intake Total 107.75 Balance 107.75 Intake: Intake, IV Titration 107.75 Amount Diltiazem 125 mg In 107.75 Sodium Chloride 0.9% 100 ml @ 15 MG/HR 15 mls/hr IV .Q8H20M [facility] Rx#: [id number] 08/16/23 07:25 08/16/23 07:25
[2023-08-17 08:43] LABS: Glucose,Whole Blood 172 mg/dL (70-110)
[2023-08-17] MEDS: INSULIN DETEMIR (LEVEMIR) 100 UNIT/ML SYR SQ SCH (08:54)
[2023-08-17] MEDS ORDERED: METOPROLOL SUCCINATE (ER) 50 MG TAB.ER.24H PO SCH (09:00)
[2023-08-17] MEDS: DEXTROSE 5% IN WATER 100 ML with AMIODARONE 150 MG IV ONE (09:00)
[2023-08-17] MEDS: SODIUM CHLORIDE 0.9% 1,000 ML IV SCH (09:00)
[2023-08-17] MEDS: AMIODARONE 360 MG in DEXTROSE 5% IN WATER 200 ML IV ONE (09:17)
[2023-08-17] MEDS: amLODIPine 2.5 MG TAB PO SCH (09:28)
[2023-08-17] MEDS: LOSARTAN 25 MG TAB PO SCH (09:29)
[2023-08-17] MEDS ORDERED: ACETAMINOPHEN TAB 325 MG TAB PO PRN (09:36)
[2023-08-17] MEDS ORDERED: PROPOFOL 10 MG/ML 20 ML VIAL IV ONE (09:40)
[2023-08-17 09:47] LABS: ALT 51 U/L (4-49); AST 30 U/L (17-59); African American GFR (CKD) >90 (>60 ml/min/1.73 sqM); Albumin 2.8 g/dL (3.5-5.0); Alkaline Phosphatase 116 U/L (38-126); Anion Gap 6 mmol/L; Blood Urea Nitrogen 15 mg/dL (9-20); Calcium 8.3 mg/dL (8.4-10.2); Carbon Dioxide 23 mmol/L (22-30); Chloride 109 mmol/L (98-107); Glucose 161 mg/dL (74-99); Magnesium 1.3 mg/dL (1.6-2.3); Non-African American GFR(CKD) 85 (>60 ml/min/1.73 sqM); Potassium 3.1 mmol/L (3.5-5.1); Sodium 138 mmol/L (137-145); Total Bilirubin 0.6 mg/dL (0.2-1.3); Total Protein 5.3 g/dL (6.3-8.2)
[2023-08-17 09:50] LABS: Basophils % (A) 0 %; Eosinophils # (A) 0.2 k/uL (0-0.7); Eosinophils % (A) 2 %; HCT 30.8 % (39.0-53.0); HGB 9.9 gm/dL (13.0-17.5); Hypochromasia Slight; Lymphocytes # (A) 0.9 k/uL (1.0-4.8); Lymphocytes % (A) 12 %; MCH 28.8 pg (25.0-35.0); MCHC 32.1 g/dL (31.0-37.0); MCV 89.6 fL (80.0-100.0); Mean Platelet Volume 8.8; Monocytes # (A) 0.4 k/uL (0-1.0); Monocytes % (A) 6 %; Neutrophils # (A) 6.2 k/uL (1.3-7.7); Neutrophils % (A) 80 %; Platelet Count 149 k/uL (150-450); RBC 3.43 m/uL (4.30-5.90); RDW 14.7 % (11.5-15.5); WBC 7.8 k/uL (3.8-10.6)
[2023-08-17] MEDS: IV FLUID CONTINUATION 900 ML IV ONE (09:59)
[2023-08-17] MEDS: ATORVASTATIN 80 MG TAB PO SCH (10:43)
[2023-08-17] MEDS: ASPIRIN 81 MG PO SCH (10:43)
[2023-08-17] MEDS: FINASTERIDE 5 MG TAB PO SCH (10:43)
[2023-08-17] MEDS: allopurinoL 100 MG TAB PO SCH (10:43)
[2023-08-17] MEDS: SPIRONOLACTONE 25 MG TAB PO SCH (10:43)
[2023-08-17] MEDS: METOPROLOL SUCCINATE (ER) 25 MG TAB.ER.24H PO SCH (10:51)
--- NOTE | 2023-08-17 12:30 | P.PCN ---
Description of Procedure: Procedure performed: Synchronized cardioversion Moderate conscious sedation: Moderate conscious sedation was supplied by anesthesia, see separate report. Complications: none Indications: Persistent Afib PROCEDURE: After the risks, benefits and alternatives of the above mentioned procedure was explained in detail with the patient, informed consent was obtained. Patient was brought to the lab in a fasting state. Patient was given sedation by anesthesia, see separate report. Patient had been taking his Xarelto for the last 30 days without missingany doses and therefore cardioversion was recommended. Patient underwent synchronized cardioversion x 3 with 200J with brief sinus rhythm for 5-20 seconds however went back into Afib shortly after. 3 attempts were made and felt best treated with antiarrhythmics for longer period and then considering repeat attempt. Patient tolerated the procedure well. Patient was transferred to the post procedure area in stable and satisfactory condition.
[2023-08-17 13:58] LABS: Glucose,Whole Blood 335 mg/dL (70-110)
[2023-08-17] MEDS: MAGNESIUM SULFATE-D5W PMX 1 GM in DEXTROSE/WATER 1 100ML.BAG IVPB SCH (14:17)
[2023-08-17] MEDS: POTASSIUM CHLORIDE ER 20 MEQ TAB.ER PO SCH (14:19)
[2023-08-17] MEDS: AMIODARONE 450 MG in DEXTROSE 5% IN WATER 250 ML IV SCH (14:26)
--- NOTE | 2023-08-17 15:29 | P.PN ---
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 In the ED, temperature was 97.6, pulse 116, respiratory rate 20, blood pressure 123/74, saturating at 99% on room air. WBC 7.6, hemoglobin 11.3, potassium 3.4, bicarb 20, creatinine 0.84, magnesium 1.5, glucose 255, AST 73, ALT 68, ALP 114, troponin 0.171, proBNP 9500, urinalysis negative, respiratory viral panel negative. EKG shows atrial fibrillation with RVR, right bundle branch block. Chest x-ray independently interpreted, shows mild pulmonary vascular congestion. Cardiology consulted. Patient being admitted for CHF exacerbation and A-fib RVR. Given IV Lasix in the ED, IV metoprolol. Started on amiodarone drip as well as Cardizem drip. Underwent cardioversion x 3 which were unsuccessful. Cardiology following. Subjective: Patient seen and examined at bedside. No acute events overnight. Denies any difficulty breathing, chest pain, abdominal pain, nausea, vomiting, urinary or bowel complaints. Pertinent positives and negatives as discussed above, a complete review of systems was performed and all other systems are negative. Vitals Signs Reviewed. General: nontoxic, no distress, appears at stated age Derm: warm, dry Head: atraumatic, normocephalic, symmetric Eyes: EOMI, no lid lag, anicteric sclera, pupils equal round reactive to light ENT: Nose and ears atraumatic Neck: No thyromegaly, supple Mouth: no lip lesion, mucus membranes moist Cardiovascular: S1S2 irregular, tachycardic, no murmur, 2+ pitting edema Lungs: Bibasilar rales, no wheeze, no accessory muscle use Abdominal: soft, nontender to palpation, no guarding, no appreciable organomegaly Ext: no gross muscle atrophy, muscle strength muscle strength 5 out of 5 in all 4 extremities, no contractures Neuro: CN II-XII grossly intact Psych: Alert, oriented, appropriate affect Data Reviewed Today: Pertinent Labs: Hemoglobin 9.9, platelet 149, potassium 3.1, magnesium 1.3, blood sugars range between 1 61-1 91 Imaging: EKG from this afternoon shows right bundle branch block and sinus rhythm with occasional PVCs Assessment and Plan: Active: Atrial fibrillation with RVR NSTEMI, likely type II Suspected CHF exacerbation History of CAD status post CABG -IV Lasix discontinued per cardiology -Cardiology note reviewed, unsuccessful cardioversion today, continue on amiodarone drip and Cardizem drip, monitor heart rate closely, cardiac cath tomorrow, echocardiogram pending -Continue metoprolol 75 daily, Xarelto 20 daily -Continue to monitor on telemetry Hypokalemia Hypomagnesemia -Given 80 mEq of oral potassium, 4 g of IV magnesium sulfate today -Repeat BMP and magnesium tomorrow Insulin-dependent diabetes -Continue home Lantus 8 units, insulin aspart 3 units 3 times daily, sliding scale insulin, monitor for hypoglycemia Chronic: History of prostate cancer status postradiation History of pancreatic benign mass, status post Whipple surgery Hypertension Dyslipidemia DVT ppx: Xarelto Code status: Full code Anticipated discharge place: Pending clinical course Anticipated discharge time:Pending clinical course Objective - Vital Signs Vital signs: Vital Signs Temp 98.0 F 08/17/23 14:27 Pulse 73 08/17/23 15:06 Resp 18 08/17/23 15:06 BP 133/75 08/17/23 15:06 Pulse Ox 96 08/17/23 15:06 FiO2 Intake & Output 08/16/23 08/17/23 08/17/23 18:59 06:59 18:59 Intake Total 107.75 125 Balance 107.75 125 Weight 73.482 kg Intake: Intake, IV Titration 107.75 125 Amount Diltiazem 125 mg In 107.75 125 Sodium Chloride 0.9% 100 ml @ 15 MG/HR 15 mls/hr IV .Q8H20M [facility] Rx#: [id number] - Labs CBC & Chem 7: 08/17/23 09:01 08/17/23 09:01 Labs: Abnormal Lab Results - Last 24 Hours (Table) 08/16/23 08/16/23 08/16/23 Range/Units 15:00 16:52 20:24 RBC (4.30-5.90) m/uL Hgb (13.0-17.5) gm/dL Hct (39.0-53.0) % Plt Count (150-450) k/uL Lymphocytes # (1.0-4.8) k/uL Potassium (3.5-5.1) mmol/L Chloride (98-107) mmol/L Glucose (74-99) mg/dL POC Glucose (mg/dL) 258 H 191 H (70-110) mg/dL Calcium (8.4-10.2) mg/dL Magnesium (1.6-2.3) mg/dL ALT (4-49) U/L Troponin I 0.218 H* (0.000-0.034) ng/mL Total Protein (6.3-8.2) g/dL Albumin (3.5-5.0) g/dL 08/17/23 08/17/23 08/17/23 Range/Units 08:42 09:01 09:01 RBC 3.43 L (4.30-5.90) m/uL Hgb 9.9 L (13.0-17.5) gm/dL Hct 30.8 L (39.0-53.0) % Plt Count 149 L (150-450) k/uL Lymphocytes # 0.9 L (1.0-4.8) k/uL Potassium 3.1 L (3.5-5.1) mmol/L Chloride 109 H (98-107) mmol/L Glucose 161 H (74-99) mg/dL POC Glucose (mg/dL) 172 H (70-110) mg/dL Calcium 8.3 L (8.4-10.2) mg/dL Magnesium 1.3 L (1.6-2.3) mg/dL ALT 51 H (4-49) U/L Troponin I (0.000-0.034) ng/mL Total Protein 5.3 L (6.3-8.2) g/dL Albumin 2.8 L (3.5-5.0) g/dL 08/17/23 Range/Units 13:56 RBC (4.30-5.90) m/uL Hgb (13.0-17.5) gm/dL Hct (39.0-53.0) % Plt Count (150-450) k/uL Lymphocytes # (1.0-4.8) k/uL Potassium (3.5-5.1) mmol/L Chloride (98-107) mmol/L Glucose (74-99) mg/dL POC Glucose (mg/dL) 335 H (70-110) mg/dL Calcium (8.4-10.2) mg/dL Magnesium (1.6-2.3) mg/dL ALT (4-49) U/L Troponin I (0.000-0.034) ng/mL Total Protein (6.3-8.2) g/dL Albumin (3.5-5.0) g/dL
[2023-08-17 16:43] LABS: Glucose,Whole Blood 243 mg/dL (70-110)
[2023-08-17] MEDS: ALPRAZolam 0.5 MG TAB PO STA (21:12)
--- NOTE | 2023-08-17 21:20 | XR ---
EXAMINATION TYPE: XR chest 2V DATE OF EXAM: 08/17/2023 7:19 PM CLINICAL INDICATION:Male, 82 years old with history of SOB; [facility] COMPARISON: 08/16/2023 TECHNIQUE: XR chest 2V. Frontal and lateral views of the chest.. FINDINGS: EKG leads over the chest. No indwelling lines are seen. Sternotomy wires and mediastinal clips redemo nstrated. Cardiomediastinal silhouette stable. Heart appears mildly enlarged. Tortuous aorta with moderate calc ification. Mildly prominent central interstitial/perihilar density appears unchanged. Lungs again appear mildly hyperinflated. There is no evidence of new or worsening infiltrate, or pneumothorax. Slightly greater blunting of left costophrenic angle suggests enlarging [id number] pleural effusion. Suspect m inimal right pleural effusion, stable. Mild left greater than right basilar opacities, likely atelect asis. Osseous structures appear unchanged. Mild degenerative change of the shoulders and thoracic spine. IMPRESSION: 1. Similar-appearing mild cardiomegaly with prominent central interstitial/perihilar density, likely related to pulmonary vascular congestion. 2. Slightly larger, small to moderate left pleural effusion.
[2023-08-17 21:33] LABS: Glucose,Whole Blood 171 mg/dL (70-110)
[2023-08-18] MEDS: MELATONIN 5 MG TABLET PO PRN (00:43)
[2023-08-18 06:18] LABS: Glucose,Whole Blood 107 mg/dL (70-110)
--- NOTE | 2023-08-18 07:23 | CA ---
Transthoracic Echo Report Name: Ravi Izquierdo Age: 82 Gender: M : 1940 Exam Date: 08/16/2023 11:07 Exam Location: [place] [facility] Ht (in): 69 Wt (lb): 162 Ordering Physician: Fermin García MD Attending/Referring Phys: Smeller Christin Nava RDCS Procedure CPT: Indications: chf Cardiac Hx: Technical Quality: Good Contrast 1: Total Dose (mL): Contrast 2: Total Dose (mL): MEASUREMENTS (Male / Female) Normal Values 2D ECHO LV Diastolic Diameter PLAX 5.7 cm 4.2 - 5.9 / 3.9 - 5.3 cm LV Systolic Diameter PLAX 5.5 cm IVS Diastolic Thickness 1.2 cm 0.6 - 1.0 / 0.6 - 0.9 cm LVPW Diastolic Thickness 1.1 cm 0.6 - 1.0 / 0.6 - 0.9 cm LV Relative Wall Thickness 0.4 RV Internal Dim ED PLAX 2.3 cm LA Systolic Diameter LX 4.6 cm 3.0 - 4.0 / 2.7 - 3.8 cm LV Diastolic Volume MOD BP 112.9 cm??? 67 - 155 / 56 - 104 cm??? LV Systolic Volume MOD BP 108.7 cm??? 22 - 58 / 19 - 49 cm??? LV Ejection Fraction MOD BP 3.7 % >= 55 % LV Cardiac Index MOD BP 275.0 cm???/min???m??? LV Diastolic Volume MOD 4C 91.4 cm??? LV Systolic Volume MOD 4C 79.8 cm??? LV Ejection Fraction MOD 4C 12.7 % LV Cardiac Index MOD 4C 761.4 cm???/min???m??? LV Diastolic Length 4C 8.2 cm LV Systolic Length 4C 7.9 cm LV Diastolic Volume MOD 2C 137.1 cm??? LV Systolic Volume MOD 2C 141.4 cm??? LV Ejection Fraction MOD 2C -3.2 % LV Cardiac Index MOD 2C -283.0 cm???/min???m??? LV Diastolic Length 2C 8.3 cm LV Systolic Length 2C 8.4 cm LA Volume 99.5 cm??? 18 - 58 / 22 - 52 cm??? LA Volume Index 52.5 cm???/m??? 16 - 28 cm???/m??? M-MODE Aortic Root Diameter MM 3.7 cm LA Systolic Diameter MM 3.9 cm LA Ao Ratio MM 1.1 AV Cusp Separation MM 1.2 cm DOPPLER AV Peak Velocity 69.6 cm/s AV Peak Gradient 1.9 mmHg AV Mean Velocity 51.2 cm/s AV Mean Gradient 1.7 mmHg AV Velocity Time Integral 11.8 cm TR Peak Velocity 239.8 cm/s TR Peak Gradient 23.0 mmHg Right Ventricular Systolic Press 42.4 mmHg FINDINGS Left Ventricle Left ventricular ejection fraction is estimated at 10-15 %. Mildly increased septal wall thickness. Severely increased left ventricular systolic volume. Severely decreased left ventricular ejection fraction. Right Ventricle Mild right ventricular dilatation. Mild pulmonary hypertension. Right Atrium Severe right atrial dilatation. Left Atrium Mildly increased left atrial diameter. Severely increased left atrial volume. Mildly increased left atrial area. Mitral Valve Structurally normal mitral valve. [id number] mitral regurgitation. Mitral valve thickened. Mild mitral annular calcification. Aortic Valve Trileaflet aortic valve. Diffuse thickening of the aortic valve cusps with reduced excursion. Trace aortic regurgitation. Tricuspid Valve Structurally normal tricuspid valve. Moderate tricuspid regurgitation. Pulmonic Valve Structurally normal pulmonic valve. Trace pulmonic regurgitation. Pericardium Left pleural effusion. Aorta Aorta at upper limits of normal. CONCLUSIONS Dilated LV. Severely impaired LV systolic function was EF between 10-15% Moderate to severe mitral regurgitation with intact mitral valve leaflets. Thickened aortic valve leaflets with reduced excursion Mild pulmonary hypertension. The pulmonary hypertension is probably underestimated Moderate tricuspid regurgitation Previewed by: Dr. Roger Maya MD (Electronically Signed) Final Date: 18 Aug 2023 07:22
[2023-08-18] MEDS ORDERED: NITROGLYCERIN SL TABS 0.4 MG TAB SUBLINGUAL PRN (08:48)
[2023-08-18] MEDS ORDERED: ALPRAZolam 0.25 MG TAB PO PRN (08:48)
[2023-08-18] MEDS: ASPIRIN 325 MG TAB PO STA (09:51)
[2023-08-18] MEDS ORDERED: VERAPAMIL 2.5 MG/ML 2 ML AMP ONE ×2 (09:53→10:43)
[2023-08-18] MEDS ORDERED: LIDOCAINE 1% INJ 10MG/ML (20 ML MDV) ONE (09:53)
[2023-08-18] MEDS ORDERED: HEPARIN SODIUM 1,000 UN/ML (10ML VL) ONE (09:53)
[2023-08-18] MEDS ORDERED: fentaNYL (PF) 50 MCG/ML 2 ML AMP ONE (09:53)
[2023-08-18 09:54] VITALS: RESP 17
[2023-08-18] MEDS: SODIUM CHLORIDE 0.9% 1,000 ML IV ONE (10:22)
[2023-08-18] MEDS: MIDAZOLAM 2 MG/2 ML VIAL IVP ONE (10:26)
[2023-08-18] MEDS: VERAPAMIL SYRINGE (5 MG/10 ML) INTRAARTER ONE ×2 (10:26→10:43)
[2023-08-18] MEDS: fentaNYL (PF) 50 MCG/ML 2 ML AMP IVP ONE (10:26)
[2023-08-18] MEDS: LIDOCAINE 1% INJ 10MG/ML (20 ML MDV) SQ ONE (10:26)
[2023-08-18] MEDS: HEPARIN SODIUM 1,000 UN/ML (10ML VL) IVP ONE (10:36)
[2023-08-18 10:45] LABS: Basophils % (A) 0 %; Eosinophils # (A) 0.1 k/uL (0-0.7); Eosinophils % (A) 2 %; HCT 34.7 % (39.0-53.0); HGB 10.7 gm/dL (13.0-17.5); Hypochromasia Slight; Lymphocytes % (A) 13 %; MCH 28.2 pg (25.0-35.0); MCHC 30.8 g/dL (31.0-37.0); MCV 91.5 fL (80.0-100.0); Mean Platelet Volume 8.5; Monocytes # (A) 0.4 k/uL (0-1.0); Monocytes % (A) 5 %; Neutrophils # (A) 5.8 k/uL (1.3-7.7); Neutrophils % (A) 78 %; Platelet Count 171 k/uL (150-450); RBC 3.79 m/uL (4.30-5.90); RDW 14.2 % (11.5-15.5); WBC 7.4 k/uL (3.8-10.6)
[2023-08-18 11:05] LABS: ALT 48 U/L (4-49); AST 32 U/L (17-59); African American GFR (CKD) >90 (>60 ml/min/1.73 sqM); Albumin 3.3 g/dL (3.5-5.0); Alkaline Phosphatase 119 U/L (38-126); Anion Gap 9 mmol/L; Blood Urea Nitrogen 20 mg/dL (9-20); Calcium 8.8 mg/dL (8.4-10.2); Carbon Dioxide 20 mmol/L (22-30); Chloride 108 mmol/L (98-107); Glucose 96 mg/dL (74-99); Magnesium 2.1 mg/dL (1.6-2.3); Non-African American GFR(CKD) 83 (>60 ml/min/1.73 sqM); Potassium 4.1 mmol/L (3.5-5.1); Sodium 137 mmol/L (137-145); Total Bilirubin 0.7 mg/dL (0.2-1.3)
[2023-08-18 11:34] LABS: Glucose,Whole Blood 121 mg/dL (70-110)
--- NOTE | 2023-08-18 12:25 | P.PN ---
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 In the ED, temperature was 97.6, pulse 116, respiratory rate 20, blood pressure 123/74, saturating at 99% on room air. WBC 7.6, hemoglobin 11.3, potassium 3.4, bicarb 20, creatinine 0.84, magnesium 1.5, glucose 255, AST 73, ALT 68, ALP 114, troponin 0.171, proBNP 9500, urinalysis negative, respiratory viral panel negative. EKG shows atrial fibrillation with RVR, right bundle branch block. Chest x-ray independently interpreted, shows mild pulmonary vascular congestion. Cardiology consulted. Patient being admitted for CHF exacerbation and A-fib RVR. Given IV Lasix in the ED, IV metoprolol. Started on amiodarone drip as well as Cardizem drip. Underwent cardioversion x 3 which were unsuccessful. Cardiology following. Pending cardiac cath Subjective: Patient seen and examined at bedside. No acute events overnight. Denies any difficulty breathing, chest pain, abdominal pain, nausea, vomiting, urinary or bowel complaints. Claims that he had difficulty sleeping overnight Pertinent positives and negatives as discussed above, a complete review of systems was performed and all other systems are negative. Vitals Signs Reviewed. General: nontoxic, no distress, appears at stated age Derm: warm, dry Head: atraumatic, normocephalic, symmetric Eyes: EOMI, no lid lag, anicteric sclera, pupils equal round reactive to light ENT: Nose and ears atraumatic Neck: No thyromegaly, supple Mouth: no lip lesion, mucus membranes moist Cardiovascular: S1S2 irregular, no murmur, 2+ pitting edema Lungs: Bibasilar rales, no wheeze, no accessory muscle use Abdominal: soft, nontender to palpation, no guarding, no appreciable organomegaly Ext: no gross muscle atrophy, muscle strength muscle strength 5 out of 5 in all 4 extremities, no contractures Neuro: CN II-XII grossly intact Psych: Alert, oriented, appropriate affect Data Reviewed Today: Pertinent Labs: Hemoglobin 10.7, creatinine 0.83, magnesium 2.1, glucose 96-1 71 Imaging: Echocardiogram showed severely depressed LVEF at 10 to 15%, moderate to severe mitral regurgitation, mild pulmonary hypertension, moderate tricuspid regurgitation Assessment and Plan: Active: Atrial fibrillation with RVR, status post unsuccessful cardioversion NSTEMI, likely type II Systolic cardiomyopathy, 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%, unclear if ischemic versus nonischemic History of CAD status post CABG -Did receive IV Lasix initially, consider oral Lasix -Cardiology following, pending cardiac cath, currently on amiodarone drip, Cardizem drip has been discontinued -Continue metoprolol 75 daily, Xarelto 20 daily, Aldactone 25, losartan 50 -Continue to monitor on telemetry Hypokalemia, resolved Hypomagnesemia, resolved Insulin-dependent diabetes -Continue home Lantus 8 units, insulin aspart 3 units 3 times daily, sliding scale insulin, monitor for hypoglycemia Chronic: History of prostate cancer status postradiation History of pancreatic benign mass, status post Whipple surgery Hypertension Dyslipidemia DVT ppx: Xarelto Code status: Full code Anticipated discharge place: Pending clinical course Anticipated discharge time:Pending clinical course Objective - Vital Signs Vital signs: Vital Signs Temp 97.5 F L 08/18/23 08:48 Pulse 63 08/18/23 08:48 Resp 17 08/18/23 08:48 BP 121/71 08/18/23 08:48 Pulse Ox 96 08/18/23 08:48 FiO2 Intake & Output 08/17/23 08/18/23 08/18/23 18:59 06:59 18:59 Intake Total 325 492.505 121.417 Balance 325 492.505 121.417 Weight 73.8 kg Intake: IV 100 Intake, IV Titration 325 492.505 21.417 Amount Amiodarone 360 mg In 200 Dextrose 5% in Water 200 ml @ 1 MG/MIN 33.333 mls/ hr IV .Q6H [facility] Rx#: [id number] Amiodarone 450 mg In 242.505 Dextrose 5% in Water 250 ml @ 0.5 MG/MIN 16.667 mls/hr IV .Q15H [facility] Rx#: [id number] Diltiazem 125 mg In 125 250 21.417 Sodium Chloride 0.9% 100 ml @ 15 MG/HR 15 mls/hr IV .Q8H20M [facility] Rx#: [id number] - Labs CBC & Chem 7: 08/18/23 09:00 08/18/23 09:00 Labs: Abnormal Lab Results - Last 24 Hours (Table) 08/17/23 08/17/23 08/17/23 Range/Units 09:01 13:56 16:40 RBC (4.30-5.90) m/uL Hgb (13.0-17.5) gm/dL Hct (39.0-53.0) % MCHC (31.0-37.0) g/dL Chloride (98-107) mmol/L Carbon Dioxide (22-30) mmol/L POC Glucose (mg/dL) 335 H 243 H (70-110) mg/dL Hemoglobin A1c 7.9 H (<=6.0) % Total Protein (6.3-8.2) g/dL Albumin (3.5-5.0) g/dL 08/17/23 08/18/23 08/18/23 Range/Units 21:31 09:00 09:00 RBC 3.79 L (4.30-5.90) m/uL Hgb 10.7 L (13.0-17.5) gm/dL Hct 34.7 L (39.0-53.0) % MCHC 30.8 L (31.0-37.0) g/dL Chloride 108 H (98-107) mmol/L Carbon Dioxide 20 L (22-30) mmol/L POC Glucose (mg/dL) 171 H (70-110) mg/dL Hemoglobin A1c (<=6.0) % Total Protein 6.0 L (6.3-8.2) g/dL Albumin 3.3 L (3.5-5.0) g/dL 08/18/23 Range/Units 11:32 RBC (4.30-5.90) m/uL Hgb (13.0-17.5) gm/dL Hct (39.0-53.0) % MCHC (31.0-37.0) g/dL Chloride (98-107) mmol/L Carbon Dioxide (22-30) mmol/L POC Glucose (mg/dL) 121 H (70-110) mg/dL Hemoglobin A1c (<=6.0) % Total Protein (6.3-8.2) g/dL Albumin (3.5-5.0) g/dL
--- NOTE | 2023-08-18 14:31 | CDI ---
Documentation Clarification Form Date: 08/18/2023 12:28:06 PM From: Beverly Jung RN CCDS Phone: [phone] Admit Date: 08/16/2023 09:16:00 AM Patient Name: Ravi Izquierdo Visit Number: [id number] Discharge Date: ATTENTION: The Clinical Documentation Specialists (CDI) and [facility] Coding Staff appreciate your assistance in clarifying documentation. Please respond to the clarification below the line at the bottom and electronically sign. The CDI & [facility] Coding staff will review the response and follow-up if needed. Please note: Queries are made part of the Legal Health Record. If you have any questions, please contact the author of this message via ITS. Dr. Sonido Joaquin Your patient has the documented diagnosis of unspecified Suspected CHF 08/16, Medicine note. Additional information regarding the type, acuity of CHF is requested. History/Risk Factors: 82-year-old M presents to the ED for increased shortness of breath with exertion, orthopnea, increased lower extremity swelling. Medical History: CHF, Atrial fb, Prostate cancer, Dyslipidemia and HTN. 08/15, H&P. Clinical Indicators: VS/Pulse OX, 08/15: B/P 123/74; HR 116; Temp 97.6F oral; RR 20; SpO2 99% room air BNP, 08/15: 9530 Echocardiogram Results, 08/15: Dilated LV. Severely impaired LV systolic function was EF between 10-15% Moderate to severe mitral regurgitation with intact mitral valve leaflets. Thickened aortic valve leaflets with reduced excursion Mild pulmonary hypertension. The pulmonary hypertension is probably underestimated. Moderate tricuspid regurgitation Chest X Ray, 08/15: Borderline heart size. Slight increase interstitial density. Some patchy posterior basilar atelectasis versus developing infiltrate Treatment: 08/15 Lopressor 2.5mg IV Q5M x 2 doses; 08/15 Lopressor 25mg PO x 1; Lopressor 2.5mg IVP x 1; 08/15 Lasix 40mg IV X 1; 08/15 08/16 Lasix 40mg IV Q12HR; Toprol Xl 25mg PO x 1; 08/16 Toprol XL 75mg PO Daily; 08/16 Aldactone 25mg PO Daily; In your professional opinion, can you please clarify the acuity and type of CHF if known? [ ] Chronic Systolic Heart Failure (reduced EF) [ x ] Acute on Chronic Systolic Heart Failure (reduced EF) [ ] Other, please specify [ ] Unable to determine (Template Last Revised: May 2020) MTDD
--- NOTE | 2023-08-18 15:54 | P.PN ---
Subjective Progress Note Date: 08/18/23 Reason for Consult (text): NSTEMI History of present illness: History of present illness: This is an 82-year-old male who follows with Dr. Starkey at [facility] with past medical history of coronary artery disease status post four-vessel CABG in 2002, hypertension, history of prostate cancer, history of pancreatic mass status post Whipple procedure, paroxysmal atrial fibrillation. We have been asked to evaluate the patient for elevated troponins. Patient gives history that he was in [place] about a month ago had a first episode of atrial fibrillation and was tried on medication and then underwent ELIZABETH with EF of 30% followed by successful electrocardioversion. He has not been feeling well since then with shortness of breath, weakness. He had a follow-up appointment with his primary residential construction instructor, Dr. Starkey, on Tuesday and he recommended proceeding with echocardiogram and cardiac catheterization. At that office visit, patient was not in atrial fibrillation. Yesterday morning, patient states he had terrible shortness of breath but did not feel any palpitations. He has also noticed increased lower extremity edema. Patient was found to be in A-fib with RVR and has been running consistently in the 130s to 140s. He is on a Cardizem drip at 15 mg. He has been on Xarelto since his episode of atrial fibrillation and has not missed any doses. Patient is seen today in the emergency center waiting for bed on the cardiac stepdown unit. Patient has been started on Cardizem drip and maintained on Xarelto. Discussed options with the patient and Dr. Jose contacted Dr. Starkey as well. EKG atrial fibrillation with RVR, ventricular rate of 143 Chest x-ray: Borderline heart size. Slight increase in subtle interstitial density could reflect pulmonary vascular congestion versus bronchitis or asthma. Some patchy posterior basilar atelectasis versus infiltrate. WBC 7.6, hemoglobin 11.3. INR 1.4. Sodium 139, potassium 3.4, BUN 19 creatinine 0.84. Blood sugar 255. Troponins 0.171, 0.191, 0.218. proBNP 9530. Influenza A, influenza B, RSV, COVID-19 not detected. Home cardiac medications: Amlodipine 2.5 mg daily, aspirin 81 mg daily, Lipitor 80 mg daily, finasteride 5 mg daily, Lasix 20 mg every 48 hours, losartan 50 mg daily, Toprol XL 25 mg daily, Nitrostat as needed, Xarelto 20 mg with supper, Aldactone 25 mg daily. Cardiac catheterization performed 11/29/[address] Antoinette Negron revealed salamatof three-vessel coronary artery disease. Patent TRONCOSO to LAD, patent venous graft to the right coronary artery, occluded venous graft and fourth graft is visualized on the right coronary artery. Patient subsequently underwent successful stenting of the SVG to the diagonal by Dr. Maya. Echocardiogram performed on 11/25/2022 revealed mild LV systolic dysfunction with EF of 45 to 50%, aortic sclerosis without significant stenosis. 08/17 Yesterday, patient underwent electrocardioversion which was unsuccessful. He wa s maintained on Cardizem drip and amiodarone bolus followed by drip was added. Subsequently, patient did convert to sinus rhythm. Patient underwent cardiac catheterization today which revealed Blood pressure 121/71, heart rate 63, pulse ox 96% on room air. Repeat blood wo rk reveals hemoglobin 10.7. Creatinine 0.83, potassium 4.1. Magnesium 2.1. Echocardiogram reveals EF of 10 to 15%, moderate to severe mitral digitation with intact mitral valve leaflets. Thickened aortic valve leaflets with reduced excursion. Mild pulmonary hypertension. Pulmonary hypertension is probably underestimated. Moderate tricuspid regurgitation. Reviewed results of cardiac catheterization and echocardiogram with the patient and his family and feel that the majority of his symptoms are related to the uncontrolled atrial fibrillation. Physical examination: Gen: This is an 82-year-old male in no acute distress. VS: reviewed HEENT: Head is atraumatic, normocephalic. Pupils equal, round. Sclerae is anicteric. NECK: Supple. No JVD. LUNGS: Clear to auscultation. No wheezes or rhonchi. No intercostal retractions. HEART: Irregular rate and rhythm. No murmur. ABDOMEN: Soft No tenderness. EXTREMITIES: 12+ pedal edema. No calf tenderness. NEUROLOGICAL: Patient is awake, alert and oriented x3. Assessment: Paroxysmal atrial fibrillation with RVR Non-ST elevated myocardial infarction Coronary artery disease with history of four-vessel bypass and stent of the SVG to the diagonal Hypertension History of Whipple procedure History of prostate cancer Mild elevation in AST and ALT Plan: Continue patient's home cardiac medications Discontinue Cardizem drip and amiodarone drip Start patient on oral amiodarone 400 mg twice daily for 7 days followed by 200 mg twice daily for 7 days and then 200 mg daily At the time of discharge, patient will follow-up with Dr. Jose in the office in 1 to 2 weeks. Nurse practitioner note has been reviewed, I agree with documented findings and plan of care. Patient was seen and examined. Objective - Vital Signs Vital signs: Vital Signs Temp 97.5 F L 08/18/23 08:48 Pulse 63 08/18/23 08:48 Resp 17 08/18/23 08:48 BP 121/71 08/18/23 08:48 Pulse Ox 96 08/18/23 08:48 FiO2 Intake & Output 08/17/23 08/18/23 08/18/23 18:59 06:59 18:59 Intake Total 325 492.505 121.417 Balance 325 492.505 121.417 Weight 73.8 kg Intake: IV 100 Intake, IV Titration 325 492.505 21.417 Amount Amiodarone 360 mg In 200 Dextrose 5% in Water 200 ml @ 1 MG/MIN 33.333 mls/ hr IV .Q6H [facility] Rx#: [id number] Amiodarone 450 mg In 242.505 Dextrose 5% in Water 250 ml @ 0.5 MG/MIN 16.667 mls/hr IV .Q15H [facility] Rx#: [id number] Diltiazem 125 mg In 125 250 21.417 Sodium Chloride 0.9% 100 ml @ 15 MG/HR 15 mls/hr IV .Q8H20M [facility] Rx#: [id number] - Labs CBC & Chem 7: 08/18/23 09:00 08/18/23 09:00 Labs: Abnormal Lab Results - Last 24 Hours (Table) 08/17/23 08/17/23 08/17/23 Range/Units 09:01 16:40 21:31 RBC (4.30-5.90) m/uL Hgb (13.0-17.5) gm/dL Hct (39.0-53.0) % MCHC (31.0-37.0) g/dL Chloride (98-107) mmol/L Carbon Dioxide (22-30) mmol/L POC Glucose (mg/dL) 243 H 171 H (70-110) mg/dL Hemoglobin A1c 7.9 H (<=6.0) % Total Protein (6.3-8.2) g/dL Albumin (3.5-5.0) g/dL 08/18/23 08/18/23 08/18/23 Range/Units 09:00 09:00 11:32 RBC 3.79 L (4.30-5.90) m/uL Hgb 10.7 L (13.0-17.5) gm/dL Hct 34.7 L (39.0-53.0) % MCHC 30.8 L (31.0-37.0) g/dL Chloride 108 H (98-107) mmol/L Carbon Dioxide 20 L (22-30) mmol/L POC Glucose (mg/dL) 121 H (70-110) mg/dL Hemoglobin A1c (<=6.0) % Total Protein 6.0 L (6.3-8.2) g/dL Albumin 3.3 L (3.5-5.0) g/dL
[2023-08-18 16:35] LABS: Glucose,Whole Blood 318 mg/dL (70-110)
[2023-08-18] MEDS: AMIODARONE 200 MG TAB PO SCH (20:04)
[2023-08-18 20:13] LABS: Glucose,Whole Blood 193 mg/dL (70-110)
[2023-08-18] MEDS: ALPRAZolam 0.5 MG TAB PO PRN (20:59)
[2023-08-19 06:10] LABS: Glucose,Whole Blood 114 mg/dL (70-110)
[2023-08-19] MEDS ORDERED: HEPARIN SODIUM,PORCINE (1 ML) 2,500 UNIT in SODIUM CHLORIDE 0.9% 250 ML IRRIGATION PRN (07:00)
[2023-08-19] MEDS ORDERED: HEPARIN SODIUM,PORCINE 10,000 UNIT in SODIUM CHLORIDE 0.9% 1,000 ML IRRIGATION PRN (07:00)
[2023-08-19] MEDS: METOPROLOL SUCCINATE (ER) 25 MG TAB.ER.24H PO SCH (09:51)
[2023-08-19 11:30] VITALS: BP 132/71; PULSE 69; TEMP 98.2
[2023-08-19 11:46] LABS: Glucose,Whole Blood 144 mg/dL (70-110)
[2023-08-19] MEDS: DAPAGLIFLOZIN PROPANEDIOL 10 MG TABLET PO SCH (13:14)
[2023-08-19 13:34] LABS: Basophils % (A) 0 %; Eosinophils # (A) 0.1 k/uL (0-0.7); Eosinophils % (A) 2 %; HCT 34.7 % (39.0-53.0); HGB 10.5 gm/dL (13.0-17.5); Hypochromasia Slight; Lymphocytes # (A) 0.8 k/uL (1.0-4.8); Lymphocytes % (A) 11 %; MCH 27.9 pg (25.0-35.0); MCHC 30.4 g/dL (31.0-37.0); MCV 91.9 fL (80.0-100.0); Mean Platelet Volume 8.4; Monocytes # (A) 0.4 k/uL (0-1.0); Monocytes % (A) 5 %; Neutrophils # (A) 5.4 k/uL (1.3-7.7); Neutrophils % (A) 80 %; Platelet Count 173 k/uL (150-450); RBC 3.77 m/uL (4.30-5.90); RDW 14.1 % (11.5-15.5); WBC 6.8 k/uL (3.8-10.6)
[2023-08-19 13:43] LABS: African American GFR (CKD) >90 (>60 ml/min/1.73 sqM); Anion Gap 5 mmol/L; Blood Urea Nitrogen 16 mg/dL (9-20); Calcium 8.6 mg/dL (8.4-10.2); Carbon Dioxide 22 mmol/L (22-30); Chloride 107 mmol/L (98-107); Glucose 220 mg/dL (74-99); Magnesium 1.6 mg/dL (1.6-2.3); Non-African American GFR(CKD) 85 (>60 ml/min/1.73 sqM); Potassium 3.9 mmol/L (3.5-5.1); Sodium 134 mmol/L (137-145)
--- NOTE | 2023-08-19 14:01 | P.DS ---
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 In the ED, temperature was 97.6, pulse 116, respiratory rate 20, blood pressure 123/74, saturating at 99% on room air. WBC 7.6, hemoglobin 11.3, potassium 3.4, bicarb 20, creatinine 0.84, magnesium 1.5, glucose 255, AST 73, ALT 68, ALP 114, troponin 0.171, proBNP 9500, urinalysis negative, respiratory viral panel negative. EKG shows atrial fibrillation with RVR, right bundle branch block. Chest x-ray independently interpreted, shows mild pulmonary vascular congestion. Cardiology consulted. Patient being admitted for CHF exacerbation and A-fib RVR. Given IV Lasix in the ED, IV metoprolol. Started on amiodarone drip as well as Cardizem drip. Underwent cardioversion x 3 which were unsuccessful. Cardiology following. Cardiac cath performed, report is pending. Echo done shows EF 10-15%, moderate-severe MR, moderate TR. 08/18 Patient was seen and examined. He reports no symptoms. No chest pain, SOB, palpitations or dizziness. Discussed with MARILU Phelps, patient has been cleared for discharge by Cardiology on Jardiance and Amiodarone. Discussed with the patient regarding low EF and possible need for AICD, he will discuss this with his Planning Lead at [facility]. Follow up with PCP within 1-2 days of discharge. Follow up with Cardiology within 1 week of discharge. General: nontoxic, no distress, appears at stated age Derm: warm, dry Head: atraumatic, normocephalic, symmetric Eyes: EOMI, no lid lag, anicteric sclera ENT: Nose and ears atraumatic Neck: No thyromegaly, supple Mouth: no lip lesion, mucus membranes moist Cardiovascular: S1S2 irregular, no murmur Lungs: Decreased BS BL, no wheeze, no accessory muscle use Ext: no gross muscle atrophy, muscle strength muscle strength 5 out of 5 in all 4 extremities, no contractures Psych: Alert, oriented, appropriate affect Discharge Diagnosis: Atrial fibrillation with RVR, status post unsuccessful cardioversion NSTEMI, likely type II Systolic cardiomyopathy, 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 Patient Condition at Discharge: Stable Plan - Discharge Summary Discharge Rx Participant: No New Discharge Prescriptions: New Empagliflozin [Jardiance] 10 mg PO DAILY #30 tablet Amiodarone [Cordarone] 400 mg PO BID #30 tablet Continue Aspirin 81 mg PO DAILY Losartan [Cozaar] 50 mg PO DAILY Finasteride [Proscar] 5 mg PO DAILY Atorvastatin [Lipitor] 80 mg PO DAILY allopurinoL [Zyloprim] 100 mg PO DAILY Tamsulosin HCl [Flomax] 0.4 mg PO BID Lipase/Protease/Amylase [Creon Dr 24,000 Unit Capsule] 1 cap PO TID-W/MEALS metFORMIN HCL 1,000 mg PO DAILY Sucralfate [Carafate] 1 gm PO HS Zolpidem [Ambien] 5 mg PO HS PRN PRN Reason: Insomnia Insulin Aspart [NovoLOG Flexpen] 3 units SQ AC-TID Rivaroxaban [Xarelto] 20 mg PO W/SUPPER Metoprolol Succinate (ER) [Toprol XL] 25 mg PO DAILY Desmopressin Acetate [Ddavp] 0.1 mg PO HS Nitroglycerin Sl Tabs [Nitrostat] 0.4 mg SUBLINGUAL Q5M PRN #25 tab PRN Reason: Chest Pain amLODIPine [Norvasc] 2.5 mg PO DAILY Insulin Glargine,Hum.rec.anlog [Lantus Solostar Pen] 8 units SQ DAILY Spironolactone [Aldactone] 25 mg PO DAILY Vibegron [Gemtesa] 75 mg PO HS Changed Furosemide [Lasix] 20 mg PO DAILY #30 tab Discharge Medication List Aspirin 81 mg PO DAILY 08/23/16 [History] Atorvastatin [Lipitor] 80 mg PO DAILY 08/23/16 [History] Finasteride [Proscar] 5 mg PO DAILY 08/23/16 [History] Losartan [Cozaar] 50 mg PO DAILY 08/23/16 [History] Tamsulosin HCl [Flomax] 0.4 mg PO BID 08/23/16 [History] allopurinoL [Zyloprim] 100 mg PO DAILY 08/23/16 [History] Lipase/Protease/Amylase [Creon Dr 24,000 Unit Capsule] 1 cap PO TID-W/MEALS 07/04/19 [History] Sucralfate [Carafate] 1 gm PO HS 04/25/22 [History] metFORMIN HCL 1,000 mg PO DAILY 04/25/22 [History] Nitroglycerin Sl Tabs [Nitrostat] 0.4 mg SUBLINGUAL Q5M PRN #25 tab 11/30/22 [Rx] Desmopressin Acetate [Ddavp] 0.1 mg PO HS 08/16/23 [History] Insulin Aspart [NovoLOG Flexpen] 3 units SQ AC-TID 08/16/23 [History] Insulin Glargine,Hum.rec.anlog [Lantus Solostar Pen] 8 units SQ DAILY 08/16/23 [History] Metoprolol Succinate (ER) [Toprol XL] 25 mg PO DAILY 08/16/23 [History] Rivaroxaban [Xarelto] 20 mg PO W/SUPPER 08/16/23 [History] Spironolactone [Aldactone] 25 mg PO DAILY 08/16/23 [History] Vibegron [Gemtesa] 75 mg PO HS 08/16/23 [History] Zolpidem [Ambien] 5 mg PO HS PRN 08/16/23 [History] amLODIPine [Norvasc] 2.5 mg PO DAILY 08/16/23 [History] Amiodarone [Cordarone] 400 mg PO BID #30 tablet 08/18/23 [Rx] Empagliflozin [Jardiance] 10 mg PO DAILY #30 tablet 08/19/23 [Rx] Furosemide [Lasix] 20 mg PO DAILY #30 tab 08/19/23 [Rx] Follow up Appointment(s)/Referral(s): Mario Alberto Starkey [Other] - 1 Week Rah Tsai MD [Primary Care Provider] - 1-2 days (August 21 12:00) Patient Instructions/Handouts: *Surgery [facility] - After Heart Catheterization - Kier Drier Instructions, Heart Failure (DC), A-fib (Atrial Fibrillation) (DC) Activity/Diet/Wound Care/Special Instructions: Diet: Cardiac, Follow up with your Planning Lead within 1 week regarding possible AICD due to low EF. Discharge Disposition: HOME SELF-CARE
--- NOTE | 2023-08-19 15:51 | P.PN ---
Subjective Progress Note Date: 08/19/23 Reason for Consult (text): NSTEMI History of present illness: History of present illness: This is an 82-year-old male who follows with Dr. Starkey at [facility] with past medical history of coronary artery disease status post four-vessel CABG in 2002, hypertension, history of prostate cancer, history of pancreatic mass status post Whipple procedure, paroxysmal atrial fibrillation. We have been asked to evaluate the patient for elevated troponins. Patient gives history that he was in [place] about a month ago had a first episode of atrial fibrillation and was tried on medication and then underwent ELIZABETH with EF of 30% followed by successful electrocardioversion. He has not been feeling well since then with shortness of breath, weakness. He had a follow-up appointment with his primary information technology auditor, Dr. Starkey, on Tuesday and he recommended proceeding with echocardiogram and cardiac catheterization. At that office visit, patient was not in atrial fibrillation. Yesterday morning, patient states he had terrible shortness of breath but did not feel any palpitations. He has also noticed increased lower extremity edema. Patient was found to be in A-fib with RVR and has been running consistently in the 130s to 140s. He is on a Cardizem drip at 15 mg. He has been on Xarelto since his episode of atrial fibrillation and has not missed any doses. Patient is seen today in the emergency center waiting for bed on the cardiac stepdown unit. Patient has been started on Cardizem drip and maintained on Xarelto. Discussed options with the patient and Dr. Jose contacted Dr. Starkey as well. EKG atrial fibrillation with RVR, ventricular rate of 143 Chest x-ray: Borderline heart size. Slight increase in subtle interstitial density could reflect pulmonary vascular congestion versus bronchitis or asthma. Some patchy posterior basilar atelectasis versus infiltrate. WBC 7.6, hemoglobin 11.3. INR 1.4. Sodium 139, potassium 3.4, BUN 19 creatinine 0.84. Blood sugar 255. Troponins 0.171, 0.191, 0.218. proBNP 9530. Influenza A, influenza B, RSV, COVID-19 not detected. Home cardiac medications: Amlodipine 2.5 mg daily, aspirin 81 mg daily, Lipitor 80 mg daily, finasteride 5 mg daily, Lasix 20 mg every 48 hours, losartan 50 mg daily, Toprol XL 25 mg daily, Nitrostat as needed, Xarelto 20 mg with supper, Aldactone 25 mg daily. Cardiac catheterization performed 11/29/[address] Antoinette Negron revealed kiana three-vessel coronary artery disease. Patent TRONCOSO to LAD, patent venous graft to the right coronary artery, occluded venous graft and fourth graft is visualized on the right coronary artery. Patient subsequently underwent successful stenting of the SVG to the diagonal by Dr. Maya. Echocardiogram performed on 11/25/2022 revealed mild LV systolic dysfunction with EF of 45 to 50%, aortic sclerosis without significant stenosis. 08/17 Yesterday, patient underwent electrocardioversion which was unsuccessful. He wa s maintained on Cardizem drip and amiodarone bolus followed by drip was added. Subsequently, patient did convert to sinus rhythm. Patient underwent cardiac catheterization today -please see cardiac cath note by Dr. Jose. Blood pressure 121/71, heart rate 63, pulse ox 96% on room air. Repeat blood work reveals hemoglobin 10.7. Creatinine 0.83, potassium 4.1. Magnesium 2.1. Echocardiogram reveals EF of 10 to 15%, moderate to severe mitral digitation with intact mitral valve leaflets. Thickened aortic valve leaflets with reduced excursion. Mild pulmonary hypertension. Pulmonary hypertension is probably underestimated. Moderate tricuspid regurgitation. Reviewed results of cardiac catheterization and echocardiogram with the patient and his family and feel that the majority of his symptoms are related to the uncontrolled atrial fibrillation. 08/18 Patient is seen today in follow-up. Patient states that he has walked a loop of the floor 3 times with no symptoms of chest pain, shortness of breath, lightheadedness or dizziness. He has remained in sinus rhythm. He has less lo wer extremity edema. Blood pressure 132/71, heart rate 69, pulse ox 98% on room air. Repeat blood work reveals hemoglobin of 10.5. BUN 16 creatinine 0.77. He is planning to follow-up with Dr. Starkey. Physical examination: Gen: This is an 82-year-old male in no acute distress. VS: reviewed HEENT: Head is atraumatic, normocephalic. Pupils equal, round. Sclerae is anicteric. NECK: Supple. No JVD. LUNGS: Clear to auscultation. No wheezes or rhonchi. No intercostal retractions. HEART: Irregular rate and rhythm. No murmur. ABDOMEN: Soft No tenderness. EXTREMITIES: 12+ pedal edema. No calf tenderness. NEUROLOGICAL: Patient is awake, alert and oriented x3. Assessment: Paroxysmal atrial fibrillation with RVR Non-ST elevated myocardial infarction Coronary artery disease with history of four-vessel bypass and stent of the SVG to the diagonal Hypertension History of Whipple procedure History of prostate cancer Mild elevation in AST and ALT Plan: Continue patient's home cardiac medications Discontinue Cardizem drip and amiodarone drip Start patient on Jardiance and continue amiodarone tapering dose outpatient At the time of discharge, patient will follow-up with Dr. Starkey in 1 week. Nurse practitioner note has been reviewed, I agree with documented findings and plan of care. Patient was seen and examined. Objective - Vital Signs Vital signs: Vital Signs Temp 98.2 F 08/19/23 11:24 Pulse 69 08/19/23 11:24 Resp 17 08/19/23 11:24 BP 132/71 08/19/23 11:24 Pulse Ox 98 08/19/23 11:24 FiO2 Intake & Output 08/18/23 08/19/23 08/19/23 18:59 06:59 18:59 Intake Total 121.417 Balance 121.417 Weight 73.2 kg Intake: IV 100 Intake, IV Titration 21.417 Amount Diltiazem 125 mg In 21.417 Sodium Chloride 0.9% 100 ml @ 15 MG/HR 15 mls/hr IV .Q8H20M [facility] Rx#: [id number] Other: Voiding Method Urinal Urinal Urinal - Labs CBC & Chem 7: 08/19/23 12:57 08/19/23 12:57 Labs: Abnormal Lab Results - Last 24 Hours (Table) 08/18/23 08/18/23 08/19/23 Range/Units 16:34 20:11 06:08 POC Glucose (mg/dL) 318 H 193 H 114 H (70-110) mg/dL 08/19/23 Range/Units 11:44 POC Glucose (mg/dL) 144 H (70-110) mg/dL
--- NOTE | 2023-08-20 00:17 | P.CARDCATH ---
Description of Procedure: PROCEDURES PERFORMED: Left heart catheterization, bilateral coronary angiography, ultrasound guided arterial access, SVG to diagonal, SVG to PDA, TRONCOSO to LAD angiography INDICATION: NSTEMI CONSENT:I have discussed the risks, benefits and alternative therapies for the above-mentioned procedure and for both sedation/analgesia as well as necessary blood product administration, if indicated, as they pertain to this patient. The patient has indicated understanding and acceptance of the risks and procedures discussed. PROCEDURE: After the risks, benefits and alternatives of the above mentioned procedure explained in detail with the patient, informed consent was obtained. Patient was taken to the catheterization lab and prepped and draped in usual fashion. Ultrasound guidance was used to assess for arterial access. 1% lidocaine was used to anesthetize the left radial artery. A 6-Syrian sheath was placed in the left radial artery using modified Seldinger technique and ultrasound guidance. Left coronary angiography was performed with a 5-Syrian JL 4.0 catheter and right coronary angiography was performed with a 5-Syrian FR5 catheter in various views. A 5-Syrian FR5 catheter was inserted into the left ventricle and pressure measurements were obtained. SVG to PDA and TRONCOSO to LAD angiography was performed with the 5-Syrian FR5 catheter. The SVG to OM was known to be occluded. The SVG to diagonal branch was imaged using a multipurpose catheter. The radial sheath was removed and a TR band was placed with hemostasis achieved. The patient tolerated the procedure well. Patient was transported back to the post catheterization holding area in stable condition. Conscious Sedation: Patient was monitored under the direct supervision of myself for conscious sedation using Versed and fentanyl for a total duration of [] minutes HEMODYNAMICS: Ao: 141/73 LV: 137/5, LVEDP 23 SELECTIVE CORONARY ARTERIOGRAPHY: LEFT MAIN: The left main is a large caliber vessel which bifurcates into the LAD and circumflex. There is distal left main 90% stenosis. LEFT ANTERIOR DESCENDING CORONARY ARTERY: LAD is a large caliber vessel which wraps around to the apex. There is 100% ostial LAD stenosis. LEFT CIRCUMFLEX CORONARY ARTERY: Left circumflex is a moderate caliber vessel with an ostial circumflex 99% stenosis leading to 2 small caliber OM branches. RIGHT CORONARY ARTERY: The right coronary artery is a large caliber vessel which gives off a PDA and PLV branch and is the dominant vessel. There is 100% proximal RCA stenosis SVG to RCA: widely patent SVG to OM: known to be occluded and not reimaged SVG to diagonal: 100% proximal stenosis just prior to the previously placed stent TRONCOSO to LAD: widely patent FINAL IMPRESSION: 1. [place] coronary artery stenosis with 90% left main, 99% small caliber circumflex, 100% ostial LAD, 100% proximal RCA stenosis 2. Patent SVG to PDA, TRONCOSO to LAD 3. Known occluded SVG to OM and occluded SVG to diagonal 4. Normal left sided filling pressures PLAN: 1. Aggressive risk factor modification per most recent ACC/AHA guidelines. 2. Only change in anatomy is SVG to diagonal occluded which appears more chronic. Presentation not consistent with ACS and more consistent with heart failure, likely tachycardia induced by Afib. If having more angina may consider PCI of left main into circumflex however small caliber vessel.
== END 2023-08-19 14:37 | disposition home or self-care (01) | DRG 280 ==
LOC: EC 06:59 → 3SCARD 09:16
PROVIDERS: ADMIT Internal Medicine; ATTEND Internal Medicine
PROC: 5A2204Z Restoration of Cardiac Rhythm, Single (ICD-10-PCS; 2023-08-17)
PROC: 4A023N7 Measurement of Cardiac Sampling and Pressure, Left Heart, Percutaneous Approach (ICD-10-PCS; principal; 2023-08-18 11:40)
PROC: B2131ZZ Fluoroscopy of Multiple Coronary Artery Bypass Grafts using Low Osmolar Contrast (ICD-10-PCS; principal; 2023-08-18 11:40)
PROC: B2111ZZ Fluoroscopy of Multiple Coronary Arteries using Low Osmolar Contrast (ICD-10-PCS; principal; 2023-08-18 11:40)
DX: I48.19 Other persistent atrial fibrillation (principal); I50.23 Acute on chronic systolic (congestive) heart failure; I21.A1 Myocardial infarction type 2; I25.810 Atherosclerosis of coronary artery bypass graft(s) without angina pectoris; Z79.01 Long term (current) use of anticoagulants; I11.0 Hypertensive heart disease with heart failure; Z20.822 Contact with and (suspected) exposure to COVID-19; R79.89 Other specified abnormal findings of blood chemistry; E78.5 Hyperlipidemia, unspecified; E83.42 Hypomagnesemia; E87.6 Hypokalemia; I08.1 Rheumatic disorders of both mitral and tricuspid valves; M10.9 Gout, unspecified; I25.10 Atherosclerotic heart disease of native coronary artery without angina pectoris; R00.0 Tachycardia, unspecified; I27.20 Pulmonary hypertension, unspecified; I42.8 Other cardiomyopathies; I45.10 Unspecified right bundle-branch block; M17.12 Unilateral primary osteoarthritis, left knee; Z79.4 Long term (current) use of insulin; Z79.82 Long term (current) use of aspirin; Z79.84 Long term (current) use of oral hypoglycemic drugs; Z79.899 Other long term (current) drug therapy; Z85.46 Personal history of malignant neoplasm of prostate; Z90.411 Acquired partial absence of pancreas; Z95.1 Presence of aortocoronary bypass graft; Z88.1 Allergy status to other antibiotic agents; Z88.8 Allergy status to other drugs, medicaments and biological substances; Z92.3 Personal history of irradiation; Z86.14 Personal history of Methicillin resistant Staphylococcus aureus infection
CPT/HCPCS: 36415; 71046; 76937; 80048; 80053; 81001; 83036; 83735; 83880; 84443; 84484; 85025; 85610; 85730; 87636; 92960; 93005; 93306; 93459; 94760; 96365; 96366; 96367; 96368; 96375; 96376; 99291

== ENCOUNTER 2023-09-13 17:28 | Emergency (ER) | payer MEDICARE ==
[2023-09-13 17:35] VITALS: BP 157/59; PULSE 58; RESP 16; TEMP 98.5
--- NOTE | 2023-09-13 17:52 | ED ---
General Adult HPI - General Chief complaint: Recheck/Abnormal Lab/Rx Stated complaint: Low potassium, abn labs Time Seen by Provider: 09/13/23 17:40 Source: patient, RN notes reviewed Mode of arrival: ambulatory Limitations: no limitations - History of Present Illness Initial comments: Quick note: 82-year-old male presents to the emergency department for low potassium. Patient states that he was seen at his doctor's office and had blood work drawn yesterday. He states that he was called today to inform him that his potassium was 2.1 and to present to the nearest emergency department. He denies any pain currently. - Related Data Home Medications Medication Instructions Recorded Confirmed Aspirin 81 mg PO DAILY 08/23/16 08/16/23 Atorvastatin [Lipitor] 80 mg PO DAILY 08/23/16 08/16/23 Finasteride [Proscar] 5 mg PO DAILY 08/23/16 08/16/23 Losartan [Cozaar] 50 mg PO DAILY 08/23/16 08/16/23 Tamsulosin HCl [Flomax] 0.4 mg PO BID 08/23/16 08/16/23 allopurinoL [Zyloprim] 100 mg PO DAILY 08/23/16 08/16/23 Lipase/Protease/Amylase [Creon Dr 1 cap PO TID-W/MEALS 07/04/19 08/16/23 24,000 Unit Capsule] Sucralfate [Carafate] 1 gm PO HS 04/25/22 08/16/23 metFORMIN HCL 1,000 mg PO DAILY 04/25/22 08/16/23 Desmopressin Acetate [Ddavp] 0.1 mg PO HS 08/16/23 08/16/23 Insulin Aspart [NovoLOG Flexpen] 3 units SQ AC-TID 08/16/23 08/16/23 Insulin Glargine,Hum.rec.anlog 8 units SQ DAILY 08/16/23 08/16/23 [Lantus Solostar Pen] Metoprolol Succinate (ER) [Toprol 25 mg PO DAILY 08/16/23 08/16/23 XL] Rivaroxaban [Xarelto] 20 mg PO W/SUPPER 08/16/23 08/16/23 Spironolactone [Aldactone] 25 mg PO DAILY 08/16/23 08/16/23 Vibegron [Gemtesa] 75 mg PO HS 08/16/23 08/16/23 Zolpidem [Ambien] 5 mg PO HS PRN 08/16/23 08/16/23 amLODIPine [Norvasc] 2.5 mg PO DAILY 08/16/23 08/16/23 Previous Rx's Medication Instructions Recorded Nitroglycerin Sl Tabs [Nitrostat] 0.4 mg SUBLINGUAL Q5M PRN #25 tab 11/30/22 Amiodarone [Cordarone] 400 mg PO BID #30 tablet 08/18/23 Empagliflozin [Jardiance] 10 mg PO DAILY #30 tablet 08/19/23 Furosemide [Lasix] 20 mg PO DAILY #30 tab 08/19/23 Allergies Allergy/AdvReac Type Severity Reaction Status Date / Time clarithromycin [From Biaxin] Allergy Rash/Hives,red Verified 09/13/23 17:34 skin clopidogrel [From Plavix] Allergy Rash/Hives,red Verified 09/13/23 17:34 skin Review of Systems ROS Statement: Those systems with pertinent positive or pertinent negative responses have been documented in the HPI. ROS Other: All systems not noted in ROS Statement are negative. Past Medical History Past Medical History: Atrial Fibrillation, Coronary Artery Disease (CAD), Cancer, Diabetes Mellitus, Eye Disorder, Hypertension, Osteoarthritis (OA) Additional Past Medical History / Comment(s): hx. prostate cancer-dx. 2013- recent elevation in PSA so currently had radiation(last treatment was 2017) here,cataracts, low cholesterol, Hx Gout. hx of recent ear infection with vertigo. Arthritis left knee. Dx with diabetes in April of 2022. History of Any Multi-Drug Resistant Organisms: MRSA Date of last positivie culture/infection: 2008 MDRO Source:: left foot Past Surgical History: Coronary Bypass/CABG, Heart Catheterization, Orthopedic Surgery Additional Past Surgical History / Comment(s): angie shoulder arthroscopy, whipple surgery-benign tumor-had partial pancreatectomy, cataracts removed bilaterally, Bypass 2002 X4 Past Anesthesia/Blood Transfusion Reactions: Motion Sickness, Postoperative Nausea & Vomiting (PONV) Additional Past Anesthesia/Blood Transfusion Reaction / Comment(s): No blood tranfusions Past Psychological History: No Psychological Hx Reported Smoking Status: Never smoker Past Alcohol Use History: None Reported Past Drug Use History: None Reported - Past Family History Mother Family Medical History: No Reported History Additional Family Medical History / Comment(s): , natural causes Father Family Medical History: Congestive Heart Failure (CHF) General Exam - General Exam Comments Initial Comments: Visual Physical Exam Vital signs reviewed General: Well-appearing, nontoxic, no acute distress. Head: Normocephalic, atraumatic Eyes: PERRLA, EOMI ENT: Airway patent Chest: Nonlabored breathing Skin: No visual rash, normal skin tone Neuro: Alert and oriented 3 Musculoskeletal: No gross abnormalities Limitations: no limitations Course Vital Signs 09/13/23 17:31 Temperature 98.5 F Pulse Rate 58 L Respiratory 16 Rate Blood Pressure 157/59 O2 Sat by Pulse 92 L Oximetry Medical Decision Making - Medical Decision Making Quick note preformed and electronically signed by Basilia Marley PA-C - Lab Data Result diagrams: 09/13/23 19:00 09/13/23 19:00 Lab Results 09/13/23 09/13/23 09/13/23 Range/Units 19:00 19:00 19:00 WBC 5.0 (3.8-10.6) k/uL RBC 3.78 L (4.30-5.90) m/uL Hgb 10.5 L (13.0-17.5) gm/dL Hct 33.7 L (39.0-53.0) % MCV 89.2 (80.0-100.0) fL MCH 27.8 (25.0-35.0) pg MCHC 31.2 (31.0-37.0) g/dL RDW 14.7 (11.5-15.5) % Plt Count 140 L (150-450) k/uL MPV 8.6 Neutrophils % 64 % Lymphocytes % 25 % Monocytes % 6 % Eosinophils % 3 % Basophils % 0 % Neutrophils # 3.2 (1.3-7.7) k/uL Lymphocytes # 1.3 (1.0-4.8) k/uL Monocytes # 0.3 (0-1.0) k/uL Eosinophils # 0.2 (0-0.7) k/uL Basophils # 0.0 (0-0.2) k/uL PT 13.0 H (10.0-12.5) sec INR 1.2 H (<1.2) APTT 26.1 (22.0-30.0) sec Sodium 141 (137-145) mmol/L Potassium 3.3 L (3.5-5.1) mmol/L Chloride 110 H (98-107) mmol/L Carbon Dioxide 24 (22-30) mmol/L Anion Gap 7 mmol/L BUN 33 H (9-20) mg/dL Creatinine 1.28 H (0.66-1.25) mg/dL Est GFR (CKD-EPI)AfAm 60 (>60 ml/min/1.73 sqM) Est GFR (CKD-EPI)NonAf 52 (>60 ml/min/1.73 sqM) Glucose 211 H (74-99) mg/dL Calcium 8.5 (8.4-10.2) mg/dL Phosphorus 3.9 (2.5-4.5) mg/dL Magnesium 1.6 (1.6-2.3) mg/dL Total Bilirubin 0.5 (0.2-1.3) mg/dL AST 52 (17-59) U/L ALT 75 H (4-49) U/L Alkaline Phosphatase 77 (38-126) U/L Total Protein 5.9 L (6.3-8.2) g/dL Albumin 3.5 (3.5-5.0) g/dL Disposition Clinical Impression: Left against medical advice Disposition: LEFT AGAINST MEDICAL ADVICE Is patient prescribed a controlled substance at d/c from ED?: No Referrals: Rah Tsai MD [Primary Care Provider] - 1-2 days
[2023-09-13 19:17] LABS: Basophils % (A) 0 %; Eosinophils # (A) 0.2 k/uL (0-0.7); Eosinophils % (A) 3 %; HCT 33.7 % (39.0-53.0); HGB 10.5 gm/dL (13.0-17.5); Lymphocytes # (A) 1.3 k/uL (1.0-4.8); Lymphocytes % (A) 25 %; MCH 27.8 pg (25.0-35.0); MCHC 31.2 g/dL (31.0-37.0); MCV 89.2 fL (80.0-100.0); Mean Platelet Volume 8.6; Monocytes # (A) 0.3 k/uL (0-1.0); Monocytes % (A) 6 %; Neutrophils # (A) 3.2 k/uL (1.3-7.7); Neutrophils % (A) 64 %; Platelet Count 140 k/uL (150-450); RBC 3.78 m/uL (4.30-5.90); RDW 14.7 % (11.5-15.5)
[2023-09-13 19:30] LABS: ALT 75 U/L (4-49); AST 52 U/L (17-59); African American GFR (CKD) 60 (>60 ml/min/1.73 sqM); Albumin 3.5 g/dL (3.5-5.0); Alkaline Phosphatase 77 U/L (38-126); Anion Gap 7 mmol/L; Blood Urea Nitrogen 33 mg/dL (9-20); Calcium 8.5 mg/dL (8.4-10.2); Carbon Dioxide 24 mmol/L (22-30); Chloride 110 mmol/L (98-107); Glucose 211 mg/dL (74-99); Magnesium 1.6 mg/dL (1.6-2.3); Non-African American GFR(CKD) 52 (>60 ml/min/1.73 sqM); Phosphorus 3.9 mg/dL (2.5-4.5); Potassium 3.3 mmol/L (3.5-5.1); Sodium 141 mmol/L (137-145); Total Bilirubin 0.5 mg/dL (0.2-1.3); Total Protein 5.9 g/dL (6.3-8.2)
[2023-09-13 19:53] LABS: INR 1.2 (<1.2); Partial Thromboplastin Time 26.1 sec (22.0-30.0)
== END 2023-09-13 21:13 | disposition left against medical advice (07) ==
LOC: EC 17:28
DX: E87.6 Hypokalemia (principal); Z88.8 Allergy status to other drugs, medicaments and biological substances; Z53.29 Procedure and treatment not carried out because of patient's decision for other reasons
CPT/HCPCS: 36415; 80053; 83735; 84100; 85025; 85610; 85730; 93005; 99283